=== PATIENT | male | born 1935 | race Caucasian/White ===

== ENCOUNTER → 2016-08-20 | Outpatient (CLI) | payer MEDICARE, BC | LOC: MW.LAB 08:03 | PROVIDERS: ATTEND Internal Medicine Interventional Cardiology | DX: I25.10 Atherosclerotic heart disease of native coronary artery without angina pectoris (principal) | CPT/HCPCS: 36415; 80061 ==

== ENCOUNTER → 2016-09-08 | Outpatient (CLI) | payer MEDICARE, BC | END | disposition home or self-care (01) | LOC: MW.CHIM 08:06 | PROVIDERS: ATTEND Internal Medicine | DX: E11.9 Type 2 diabetes mellitus without complications (principal); E78.5 Hyperlipidemia, unspecified | CPT/HCPCS: 36415; 80053; 80061; 83036; 85025 ==

== ENCOUNTER → 2016-09-09 | Outpatient (CLI) | payer MEDICARE, BC | LOC: MW.CHIM 08:00 | PROVIDERS: ATTEND Internal Medicine | DX: E11.9 Type 2 diabetes mellitus without complications (principal); I25.10 Atherosclerotic heart disease of native coronary artery without angina pectoris; I77.9 Disorder of arteries and arterioles, unspecified; I10 Essential (primary) hypertension | CPT/HCPCS: 99214 ==

== ENCOUNTER → 2016-11-11 | Outpatient (CLI) | payer MEDICARE, BC ==
--- NOTE | 2016-11-11 16:14 | CR ---
EXAMINATION: Right foot HISTORY: Pain COMPARISON: None TECHNIQUE: 2 views FINDINGS/IMPRESSION: There is no acute osseous abnormality, dislocation, or fracture identified. Bon e mineralization appears normal. 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 Mild vascular calcifications are noted.
== END ==
LOC: MW.CHIM 11:47
PROVIDERS: ATTEND Internal Medicine
DX: M79.671 Pain in right foot (principal); M10.9 Gout, unspecified; M19.071 Primary osteoarthritis, right ankle and foot; M25.871 Other specified joint disorders, right ankle and foot
CPT/HCPCS: 36415; 73620-26-RT; 73620-RT; 84550; 85025; 85652; 86140; G0463

== ENCOUNTER 2017-10-13 11:43 | Observation (INO) | payer MEDICARE, BC ==
[2017-10-13] MEDS ORDERED: Sodium Chloride 0.9% 2.5 ML Syringe FLUSH PRN ×2 (12:01→16:27)
[2017-10-13] MEDS ORDERED: Diltiazem 25 MG/5 ML SDV IVPUSH ONE (12:01)
[2017-10-13] MEDS ORDERED: Sodium Chloride 0.9% 10 ML Syringe FLUSH PRN ×2 (12:01→16:27)
[2017-10-13] MEDS ORDERED: Aspirin 81 MG Tab.Chew PO ONE (12:01)
--- NOTE | 2017-10-13 12:07 | EDM.PDOC ---
ED HPI GENERAL MEDICAL PROBLEM - General Chief Complaint: Respiratory Problem Stated Complaint: CHEST PAIN Time Seen by Provider: 10/13/17 11:49 - History of Present Illness INITIAL COMMENTS - FREE TEXT/NARRATIVE: HISTORY AND PHYSICAL: History of present illness: The patient is 82-year-old male who follows in our internal medicine clinic and also follows with Dr. Babak thompson distribution systems serviceperson at [facility] in [place] and presents with an episode today of shortness of breath diaphoresis nausea and chest pain that lasted for about 15-20 minutes this morning. The patient says he has had shortness of breath with activity and some diaphoresis the last one month and saw his distribution systems serviceperson on Thursday last week, 6 days ago, and mention this but no further testing was prescribed. The patient states compliance with his medications and says he has never had a heart attack but says that he has had irregular beats before but not rhythm problems that he knows the name of. The patient says that when he does activities or even walk short distances he feels short of breath and gets sweaty which she told the distribution systems serviceperson. Something similar happened this morning where he was just standing in his house drinking cup of coffee watching television when he started to feel short of breath diaphoretic and had chest pressure underneath the left breast. He did not take any nitroglycerin at home and he did not have any abdominal pain or vomiting but was nauseated. This episode only lasted 15-20 minutes and has now stopped. Currently he has no chest pain no shortness of breath but does feel sweaty even though he is not visibly diaphoretic. He has no abdominal pain or nausea and no leg pain or swelling. The patient says he only sleeps on one pillow at night and over the last one month he does not wake in the middle the night short of breath. Patient does not frequent our ER and there is not much information on the computer about him and his last EKG performed here in the emergency department was April 2016. Review of systems: As per history of present illness and below otherwise all systems reviewed and negative. Past medical history: As per history of present illness and as reviewed below otherwise noncontributory. Surgical history: As per history of present illness and as reviewed below otherwise noncontributory. Social history: No reported history of drug or alcohol abuse. Family history: As per history of present illness and as reviewed below otherwise noncontributory. Physical exam: General: Well-developed well-nourished overweight man who is nontoxic and speaking clearly in the ED. Vital signs of the note by me. His chloride was lightly diaphoretic but the remainder of his body was not. Skin: Normal turgor no evidence of any gross pallor lesions or abnormalities. HEENT: Atraumatic, normocephalic, pupils reactive, negative for conjunctival pallor or scleral icterus, mucous membranes moist, throat clear, neck supple, nontender, trachea midline. Lungs: Clear to auscultation, breath sounds equal bilaterally, chest nontender. No work of breathing stridor or sensory muscle use Heart: S1S2, a she has a new irregular rhythm which is slightly tachycardic in the low 100s negative for clicks, rubs, or JVD. Abdomen: Soft, nondistended, nontender. Negative for masses or hepatosplenomegaly. Negative for costovertebral tenderness. Pelvis: Stable nontender. Genitourinary: Deferred. Rectal: Deferred. Extremities: Atraumatic, negative for cords or calf pain. Neurovascular unremarkable. No pedal edema or leg asymmetry Neuro: Awake, alert, oriented. Cranial nerves II through XII unremarkable. Cerebellum unremarkable. Motor and sensory unremarkable throughout. Exam nonfocal. Diagnostics: EKG x 2 chest x-ray CBC CMP INR BNP troponin [employer]: IV O2 monitor aspirin Cardizem Today's EKG was compared to the one performed here in April 2016, as this is the only EKG we have, and his prior was sinus rhythm and today he is in A. fib with a left bundle branch block. We will contact his physicians office to try to obtain an EKG if one was performed recently for comparison. 1235: Cardizem was given and the patient's heart rate is now in the 70s to 80s and he says he no longer feels sweaty. He still has no chest pain and no shortness of breath nor has he had any while in the ED. We will perform a repeat EKG and analyze the rhythm and we are still waiting for the EKG from his distribution systems serviceperson's office 1323: We were unable to get a hold of Dr. Hilliard as he is at a clinic where his cell phone service is not working and it is a satellite clinic and cannot be reached. I spoke with Dr. Moreno who was on-call for cardiology at [facility] and he was able to access some information in the computer including a stress test he had here in [place] in 2014 which showed an EF of 61% and not A. fib and echo cardiogram present within normal limits and a history that indicated that the patient had carotid disease coronary artery disease dyslipidemia and hypertension. At no point in the patient record that he was able to review was or any mention of atrial fibrillation nor does the patient or family know what that is. Chordee to the distribution systems serviceperson the last EKG that they have on record as of June 2015 hour EKG is more recent than that. He recommended starting metoprolol 12.5 mg by mouth twice a day and Eliquis but I will discuss this case with our distribution systems serviceperson Dr. Reyna if he is available as well as with the hospitalist for admission. The patient's current heart rate is in the 70s and according to Dr Moreno at [facility] he does not recommend giving any more Cardizem and only a beta dao. I performed a repeat EKG, EKG #3 which indicates an irregularly irregular rhythm consistent with A. fib We did discuss with the patient and the family whether or not they were preferred transfer to [facility] for observation admission and medication therapy or preferred to be admitted here. They tell me that with a would prefer to be admitted here and this has been relayed to the distribution systems serviceperson at [facility] as well 1345: Case was discussed with Dr. Reyna our distribution systems serviceperson who will see the patient in consultation. Please see his note for further recommendations. He is aware of the heart rate the medications that have been given and the intermittent drops in blood pressure without symptomatology. 1355: case was discussed with our hospitalist Dr Bain accepts the patient for observation admission to telemetry. Critical care time excluding procedures: 31min Impression: Progressive dyspnea, episode of chest pain and palpitations, new onset A. fib Definitive disposition and diagnosis as appropriate pending reevaluation and review of above. - Related Data Allergies Allergy/AdvReac Type Severity Reaction Status Date / Time No Known Allergies Allergy Verified 10/13/17 11:58 Home Meds: Home Meds Enalapril Maleate 10 mg PO DAILY 11/16/13 [History] Insuln Asp Prot/Insulin Aspart [NovoLOG Mix 70-30] 24 unit SQ QAM 11/16/13 [ History] metFORMIN HCl [Metformin HCl] 1,000 mg PO BID 11/16/13 [History] Clopidogrel Bisulfate [Plavix] 75 mg PO DAILY 03/12/16 [History] Insuln Asp Prot/Insulin Aspart [NovoLOG Mix 70-30] 15 unit SQ QPM 03/12/16 [ History] Isosorbide Mononitrate [Isosorbide Mononitrate ER] 15 mg PO DAILY 03/16/16 [ History] Carvedilol 6.25 mg PO BID 03/25/16 [History] Glimepiride 1 mg PO WITHBREAKFAST 10/13/17 [History] Hydrochlorothiazide 12.5 mg PO DAILY 10/13/17 [History] Past Medical History HEENT History: Reports: None Cardiovascular History: Reports: CAD, High Cholesterol, Hypertension, Other ( See Below) Other Cardiovascular History: ? 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" Respiratory History: Reports: None Gastrointestinal History: Reports: Hiatal Hernia Genitourinary History: Reports: None Musculoskeletal History: Reports: Back Pain, Chronic, Fracture, Gout Other Musculoskeletal History: hx of hand and foot fx Neurological History: Reports: Concussion, Head Trauma, Vertigo Other Neuro History: possible concussion yrs ago Psychiatric History: Reports: None Endocrine/Metabolic History: Reports: Diabetes, Type II, Obesity/BMI 30+ Hematologic History: Reports: None Immunologic History: Reports: None Oncologic (Cancer) History: Reports: None Dermatologic History: Reports: None - Infectious Disease History Infectious Disease History: Reports: None - Past Surgical History Head Surgeries/Procedures: Reports: None GI Surgical History: Reports: Cholecystectomy, Guy Fundoplication Male Surgical History: Reports: None Musculoskeletal Surgical History: Reports: None, Carpal Tunnel Social & Family History - Family History Family Medical History: Noncontributory - Tobacco Use Smoking Status *Q: Never Smoker - Alcohol Use Days Per Week of Alcohol Use: 1 Number of Drinks Per Day: 1 Total Drinks Per Week: 1 - Recreational Drug Use Recreational Drug Use: No Drug Use in Last 12 Months: No ED ROS GENERAL - Review of Systems Review Of Systems: ROS reveals no pertinent complaints other than HPI. ED EXAM, GENERAL - Physical Exam Exam: See Below (see dictation) Course - Vital Signs Last Recorded V/S: Last Vital Signs Temp 36.3 C 10/13/17 11:59 Pulse 115 H 10/13/17 11:59 Resp 18 10/13/17 11:59 BP 84/52 L 10/13/17 13:40 Pulse Ox 97 10/13/17 11:59 - Orders/Labs/Meds Orders: Active Orders 24 hr Category Date Time Status Patient Status [ADT] Stat ADT 10/13/17 13:56 Ordered Cardiac Monitoring [RC] . DIRECTED Care 10/13/17 12:00 Active EKG 12 Lead [EKG Documentation Completion] [RC] STAT Care 10/13/17 11:55 Active EKG Documentation Completion [RC] STAT Care 10/13/17 12:42 Active EKG Documentation Completion [RC] STAT Care 10/13/17 13:34 Active Notify Provider Consults [RC] ASDIRECTED Care 10/13/17 13:47 Active Oxygen Therapy, ED [RC] ASDIRECTED Care 10/13/17 12:00 Active Pulse Oximetry [RC] ASDIRECTED Care 10/13/17 12:00 Active Consult to Physician [CONS] Stat Cons 10/13/17 13:47 Active Sodium Chloride 0.9% [Normal Saline] 1,000 ml Med 10/13/17 12:42 Active IV ONETIME Sodium Chloride 0.9% [Saline Flush] Med 10/13/17 12:01 Active 10 ml FLUSH ASDIRECTED PRN Sodium Chloride 0.9% [Saline Flush] Med 10/13/17 12:01 Active 2.5 ml FLUSH ASDIRECTED PRN Saline Lock Insert [OM.PC] Stat Oth 10/13/17 12:00 Ordered Medication Orders Sodium Chloride (Normal Saline) 1,000 mls @ 30 mls/hr IV ONETIME ONE Stop: 10/14/17 22:01 Last Infusion: 10/13/17 13:44 Dose: 999 mls/hr Admin: 10/13/17 12:42 Dose: 30 mls/hr Sodium Chloride (Saline Flush) 10 ml FLUSH ASDIRECTED PRN PRN Reason: Keep Vein Open Sodium Chloride (Saline Flush) 2.5 ml FLUSH ASDIRECTED PRN PRN Reason: Keep Vein Open Labs: Laboratory Tests 10/13/17 10/13/17 10/13/17 Range/Units 12:00 12:00 12:00 WBC 8.26 (4.0-11.0) K/uL RBC 4.94 (4.50-5.90) M/uL Hgb 15.1 (13.0-17.0) g/dL Hct 43.4 (38.0-50.0) % MCV 87.9 (80.0-98.0) fL MCH 30.6 (27.0-32.0) pg MCHC 34.8 (31.0-37.0) g/dL RDW Std Deviation 45.2 (28.0-62.0) fl RDW Coeff of Aneudy 14 (11.0-15.0) % Plt Count 236 (150-400) K/uL MPV 11.10 (7.40-12.00) fL Neut % (Auto) 63.4 (48.0-80.0) % Lymph % (Auto) 22.8 (16.0-40.0) % Hooker % (Auto) 11.4 (0.0-15.0) % Eos % (Auto) 1.6 (0.0-7.0) % Baso % (Auto) 0.8 (0.0-1.5) % Neut # (Auto) 5.2 (1.4-5.7) K/uL Lymph # (Auto) 1.9 (0.6-2.4) K/uL Hooker # (Auto) 0.9 H (0.0-0.8) K/uL Eos # (Auto) 0.1 (0.0-0.7) K/uL Baso # (Auto) 0.1 (0.0-0.1) K/uL Nucleated RBC % 0.0 /100WBC Nucleated RBCs # 0 K/uL INR 1.02 Sodium 137 (136-148) mmol/L Potassium 4.7 (3.5-5.1) mmol/L Chloride 104 (98-107) mmol/L Carbon Dioxide 26.1 (21.0-32.0) mmol/L BUN 21 H (7.0-18.0) mg/dL Creatinine 1.5 H (0.8-1.3) mg/dL Est Cr Clr Drug Dosing 39.20 mL/min Estimated GFR (MDRD) 44.8 ml/min Glucose 151 H (74-106) mg/dL Calcium 9.6 (8.5-10.1) mg/dL Total Bilirubin 0.5 (0.2-1.0) mg/dL AST 15 (15-37) IU/L ALT 16 (14-63) IU/L Alkaline Phosphatase 71 (46-116) U/L Troponin I < 0.050 (0.000-0.056) ng/mL B-Natriuretic Peptide (<100) PG/ML Total Protein 7.8 (6.4-8.2) g/dL Albumin 3.6 (3.4-5.0) g/dL Globulin 4.2 H (2.0-3.5) g/dL Albumin/Globulin Ratio 0.9 L (1.3-2.8) 10/13/17 Range/Units 12:00 WBC (4.0-11.0) K/uL RBC (4.50-5.90) M/uL Hgb (13.0-17.0) g/dL Hct (38.0-50.0) % MCV (80.0-98.0) fL MCH (27.0-32.0) pg MCHC (31.0-37.0) g/dL RDW Std Deviation (28.0-62.0) fl RDW Coeff of Aneudy (11.0-15.0) % Plt Count (150-400) K/uL MPV (7.40-12.00) fL Neut % (Auto) (48.0-80.0) % Lymph % (Auto) (16.0-40.0) % Hooker % (Auto) (0.0-15.0) % Eos % (Auto) (0.0-7.0) % Baso % (Auto) (0.0-1.5) % Neut # (Auto) (1.4-5.7) K/uL Lymph # (Auto) (0.6-2.4) K/uL Hooker # (Auto) (0.0-0.8) K/uL Eos # (Auto) (0.0-0.7) K/uL Baso # (Auto) (0.0-0.1) K/uL Nucleated RBC % /100WBC Nucleated RBCs # K/uL INR Sodium (136-148) mmol/L Potassium (3.5-5.1) mmol/L Chloride (98-107) mmol/L Carbon Dioxide (21.0-32.0) mmol/L BUN (7.0-18.0) mg/dL Creatinine (0.8-1.3) mg/dL Est Cr Clr Drug Dosing mL/min Estimated GFR (MDRD) ml/min Glucose (74-106) mg/dL Calcium (8.5-10.1) mg/dL Total Bilirubin (0.2-1.0) mg/dL AST (15-37) IU/L ALT (14-63) IU/L Alkaline Phosphatase (46-116) U/L Troponin I (0.000-0.056) ng/mL B-Natriuretic Peptide 425 H (<100) PG/ML Total Protein (6.4-8.2) g/dL Albumin (3.4-5.0) g/dL Globulin (2.0-3.5) g/dL Albumin/Globulin Ratio (1.3-2.8) Meds: Medications Generic Name Dose Route Start Last Admin Trade Name Freq PRN Reason Stop Dose Admin Sodium Chloride 1,000 mls @ 30 mls/hr 10/13/17 12:42 10/13/17 13:44 Normal Saline IV 10/14/17 22:01 999 mls/hr ONETIME ONE Infusion Sodium Chloride 10 ml 10/13/17 12:01 Saline Flush FLUSH ASDIRECTED PRN Keep Vein Open Sodium Chloride 2.5 ml 10/13/17 12:01 Saline Flush FLUSH ASDIRECTED PRN Keep Vein Open Discontinued Medications Generic Name Dose Route Start Last Admin Trade Name Freq PRN Reason Stop Dose Admin Aspirin 324 mg 10/13/17 12:01 10/13/17 12:27 Aspirin PO 10/13/17 12:02 324 mg ONETIME ONE Administration Diltiazem HCl 10 mg 10/13/17 12:01 10/13/17 12:29 Diltiazem IVPUSH 10/13/17 12:02 10 mg ONETIME ONE Administration Departure - Departure Time of Disposition: 13:58 Disposition: Refer to Observation Condition: Good Clinical Impression: Atrial fibrillation Qualifiers: Atrial fibrillation type: unspecified Qualified Code(s): I48.91 - Unspecified atrial fibrillation Chest pain Qualifiers: Chest pain type: unspecified Qualified Code(s): R07.9 - Chest pain, unspecified - Discharge Information Referrals: PCP,Unknown [Primary Care Provider] - Forms: ED Department Discharge - My Orders Last 24 Hours: My Active Orders 10/13/17 11:55 EKG 12 Lead [EKG Documentation Completion] [RC] STAT 10/13/17 12:00 Cardiac Monitoring [RC] . DIRECTED Oxygen Therapy, ED [RC] ASDIRECTED Pulse Oximetry [RC] ASDIRECTED Saline Lock Insert [OM.PC] Stat 10/13/17 12:01 Sodium Chloride 0.9% [Saline Flush] 10 ml FLUSH ASDIRECTED PRN Sodium Chloride 0.9% [Saline Flush] 2.5 ml FLUSH ASDIRECTED PRN 10/13/17 12:42 EKG Documentation Completion [RC] STAT Sodium Chloride 0.9% [Normal Saline] 1,000 ml IV ONETIME 10/13/17 13:34 EKG Documentation Completion [RC] STAT 10/13/17 13:47 Notify Provider Consults [RC] ASDIRECTED Consult to Physician [CONS] Stat 10/13/17 13:56 Patient Status [ADT] Stat - Assessment/Plan Last 24 Hours: My Active Orders 10/13/17 11:55 EKG 12 Lead [EKG Documentation Completion] [RC] STAT 10/13/17 12:00 Cardiac Monitoring [RC] . DIRECTED Oxygen Therapy, ED [RC] ASDIRECTED Pulse Oximetry [RC] ASDIRECTED Saline Lock Insert [OM.PC] Stat 10/13/17 12:01 Sodium Chloride 0.9% [Saline Flush] 10 ml FLUSH ASDIRECTED PRN Sodium Chloride 0.9% [Saline Flush] 2.5 ml FLUSH ASDIRECTED PRN 10/13/17 12:42 EKG Documentation Completion [RC] STAT Sodium Chloride 0.9% [Normal Saline] 1,000 ml IV ONETIME 10/13/17 13:34 EKG Documentation Completion [RC] STAT 10/13/17 13:47 Notify Provider Consults [RC] ASDIRECTED Consult to Physician [CONS] Stat 10/13/17 13:56 Patient Status [ADT] Stat
--- NOTE | 2017-10-13 12:40 | CR ---
EXAMINATION: Portable chest radiograph. HISTORY: Breath. FINDINGS: The trachea is midline. The cardiomediastinal silhouette is within normal limits. No pulmonary infilt rates, effusions or pneumothorax. Minimal chronic interstitial prominence. Stable elevation of the le ft hemidiaphragm. Osseous structures appear unremarkable. IMPRESSION: No acute cardiopulmonary process.
[2017-10-13] MEDS ORDERED: Sodium Chloride 0.9% 1,000 ML IV ONE (12:42)
[2017-10-13 12:51] LABS: CHLORIDE,CL 104 mmol/L (98-107); SODIUM,NA 137 mmol/L (136-148)
--- NOTE | 2017-10-13 15:43 | PCM.HP ---
H&P History of Present Illness - General Date of Service: 10/13/17 Admit Problem/Dx: Admission Diagnosis/Problem Admission Diagnosis/Problem Chest pain Source of Information: Patient - History of Present Illness Initial Comments - Free Text/Narative: Patient 82 years old man presented to Er due to chest pain that woke him up from sleep , described as chest tightness for about 10 -15 minutes , localized left side of chest , mild in intensity , no irradiation. He has hx of Dm and Cad. Patient also c/o being diaphoretic sometime , and sob , has nausea and feels unsteady on his feet "like he is drunk" , no spinning of room or spinning inside the room , and it is triggered by him going from lying position to standing position.His previous EKG was sinus rhythm, the previous EKG was done here 2 y ago. His unsteadiness is better with motion sickness medication he received from his doctor. ( dromamine) Onset of Symptoms: Reports: Today - Related Data Allergies/Adverse Reactions: Allergies Allergy/AdvReac Type Severity Reaction Status Date / Time No Known Allergies Allergy Verified 10/13/17 11:58 Home Medications: Home Meds Enalapril Maleate 10 mg PO DAILY 11/16/13 [History] Insuln Asp Prot/Insulin Aspart [NovoLOG Mix 70-30] 24 unit SQ QAM 11/16/13 [ History] metFORMIN HCl [Metformin HCl] 1,000 mg PO BID 11/16/13 [History] Clopidogrel Bisulfate [Plavix] 75 mg PO DAILY 03/12/16 [History] Insuln Asp Prot/Insulin Aspart [NovoLOG Mix 70-30] 15 unit SQ QPM 03/12/16 [ History] Isosorbide Mononitrate [Isosorbide Mononitrate ER] 15 mg PO DAILY 03/16/16 [ History] Carvedilol 6.25 mg PO BID 03/25/16 [History] Glimepiride 1 mg PO WITHBREAKFAST 10/13/17 [History] Hydrochlorothiazide 12.5 mg PO DAILY 10/13/17 [History] Past Medical History HEENT History: Reports: None Cardiovascular History: Reports: CAD, High Cholesterol, Hypertension, Other ( See Below) Other Cardiovascular History: 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" Respiratory History: Reports: None Gastrointestinal History: Reports: Hiatal Hernia Genitourinary History: Reports: None Musculoskeletal History: Reports: Back Pain, Chronic, Fracture, Gout Other Musculoskeletal History: hx of hand and foot fx Neurological History: Reports: Concussion, Head Trauma, Vertigo Other Neuro History: possible concussion yrs ago Psychiatric History: Reports: None Endocrine/Metabolic History: Reports: Diabetes, Type II, Obesity/BMI 30+ Hematologic History: Reports: Anticoagulation Therapy Immunologic History: Reports: None Oncologic (Cancer) History: Reports: None Dermatologic History: Reports: None - Infectious Disease History Infectious Disease History: Reports: Measles - Past Surgical History Head Surgeries/Procedures: Reports: None GI Surgical History: Reports: Cholecystectomy, Guy Fundoplication Male Surgical History: Reports: None Neurological Surgical History: Reports: None Musculoskeletal Surgical History: Reports: Carpal Tunnel Social & Family History - Family History Family Medical History: Noncontributory - Tobacco Use Smoking Status *Q: Never Smoker Second Hand Smoke Exposure: No - Caffeine Use Caffeine Use: Reports: Coffee - Alcohol Use Days Per Week of Alcohol Use: 1 Number of Drinks Per Day: 1 Total Drinks Per Week: 1 - Recreational Drug Use Recreational Drug Use: No Drug Use in Last 12 Months: No H&P Review of Systems - Review of Systems: Review Of Systems: See Below General: Reports: No Symptoms HEENT: Reports: No Symptoms Pulmonary: Reports: No Symptoms Cardiovascular: Reports: Chest Pain. Denies: Orthopnea, PND, Edema, Lightheadedness Gastrointestinal: Reports: No Symptoms Genitourinary: Reports: No Symptoms Musculoskeletal: Reports: No Symptoms Skin: Reports: No Symptoms Psychiatric: Reports: No Symptoms Neurological: Reports: Dizziness, Gait Disturbance Hematologic/Lymphatic: Reports: No Symptoms Immunologic: Reports: No Symptoms Exam - Exam Exam: See Below - Vital Signs Vital Signs: Last Vital Signs Temp 96.6 F 10/13/17 15:09 Pulse 73 10/13/17 15:09 Resp 20 10/13/17 15:09 BP 126/74 10/13/17 15:09 Pulse Ox 95 10/13/17 15:09 Weight: 241 lb 12.8 oz - Exam General: Alert, Oriented HEENT: Conjunctiva Clear, EACs Clear Neck: Supple, Trachea Midline Lungs: Clear to Auscultation, Normal Respiratory Effort Cardiovascular: Normal S1, Normal S2, Irregular Rhythm GI/Abdominal Exam: Normal Bowel Sounds, Soft, Non-Tender, No Organomegaly, No Distention, No Abnormal Bruit, No Mass Back Exam: Normal Inspection Extremities: Normal Inspection Skin: Warm, Dry Neurological: Cranial Nerves Intact Neuro Extensive - Mental Status: Alert, Oriented x3 Neuro Extensive - Motor, Sensory, Reflexes: CN II-XII Intact Psychiatric: Alert, Normal Affect, Normal Mood - Patient Data Lab Results Last 24 hrs: Laboratory Results - last 24 hr 10/13/17 10/13/17 10/13/17 Range/Units 12:00 12:00 12:00 WBC 8.26 (4.0-11.0) K/uL RBC 4.94 (4.50-5.90) M/uL Hgb 15.1 (13.0-17.0) g/dL Hct 43.4 (38.0-50.0) % MCV 87.9 (80.0-98.0) fL MCH 30.6 (27.0-32.0) pg MCHC 34.8 (31.0-37.0) g/dL RDW Std Deviation 45.2 (28.0-62.0) fl RDW Coeff of Aneudy 14 (11.0-15.0) % Plt Count 236 (150-400) K/uL MPV 11.10 (7.40-12.00) fL Neut % (Auto) 63.4 (48.0-80.0) % Lymph % (Auto) 22.8 (16.0-40.0) % [place] % (Auto) 11.4 (0.0-15.0) % Eos % (Auto) 1.6 (0.0-7.0) % Baso % (Auto) 0.8 (0.0-1.5) % Neut # (Auto) 5.2 (1.4-5.7) K/uL Lymph # (Auto) 1.9 (0.6-2.4) K/uL [place] # (Auto) 0.9 H (0.0-0.8) K/uL Eos # (Auto) 0.1 (0.0-0.7) K/uL Baso # (Auto) 0.1 (0.0-0.1) K/uL Nucleated RBC % 0.0 /100WBC Nucleated RBCs # 0 K/uL INR 1.02 Sodium 137 (136-148) mmol/L Potassium 4.7 (3.5-5.1) mmol/L Chloride 104 (98-107) mmol/L Carbon Dioxide 26.1 (21.0-32.0) mmol/L BUN 21 H (7.0-18.0) mg/dL Creatinine 1.5 H (0.8-1.3) mg/dL Est Cr Clr Drug Dosing 39.20 mL/min Estimated GFR (MDRD) 44.8 ml/min Glucose 151 H (74-106) mg/dL Calcium 9.6 (8.5-10.1) mg/dL Total Bilirubin 0.5 (0.2-1.0) mg/dL AST 15 (15-37) IU/L ALT 16 (14-63) IU/L Alkaline Phosphatase 71 (46-116) U/L Troponin I < 0.050 (0.000-0.056) ng/mL B-Natriuretic Peptide (<100) PG/ML Total Protein 7.8 (6.4-8.2) g/dL Albumin 3.6 (3.4-5.0) g/dL Globulin 4.2 H (2.0-3.5) g/dL Albumin/Globulin Ratio 0.9 L (1.3-2.8) 10/13/17 Range/Units 12:00 WBC (4.0-11.0) K/uL RBC (4.50-5.90) M/uL Hgb (13.0-17.0) g/dL Hct (38.0-50.0) % MCV (80.0-98.0) fL MCH (27.0-32.0) pg MCHC (31.0-37.0) g/dL RDW Std Deviation (28.0-62.0) fl RDW Coeff of Aneudy (11.0-15.0) % Plt Count (150-400) K/uL MPV (7.40-12.00) fL Neut % (Auto) (48.0-80.0) % Lymph % (Auto) (16.0-40.0) % [place] % (Auto) (0.0-15.0) % Eos % (Auto) (0.0-7.0) % Baso % (Auto) (0.0-1.5) % Neut # (Auto) (1.4-5.7) K/uL Lymph # (Auto) (0.6-2.4) K/uL [place] # (Auto) (0.0-0.8) K/uL Eos # (Auto) (0.0-0.7) K/uL Baso # (Auto) (0.0-0.1) K/uL Nucleated RBC % /100WBC Nucleated RBCs # K/uL INR Sodium (136-148) mmol/L Potassium (3.5-5.1) mmol/L Chloride (98-107) mmol/L Carbon Dioxide (21.0-32.0) mmol/L BUN (7.0-18.0) mg/dL Creatinine (0.8-1.3) mg/dL Est Cr Clr Drug Dosing mL/min Estimated GFR (MDRD) ml/min Glucose (74-106) mg/dL Calcium (8.5-10.1) mg/dL Total Bilirubin (0.2-1.0) mg/dL AST (15-37) IU/L ALT (14-63) IU/L Alkaline Phosphatase (46-116) U/L Troponin I (0.000-0.056) ng/mL B-Natriuretic Peptide 425 H (<100) PG/ML Total Protein (6.4-8.2) g/dL Albumin (3.4-5.0) g/dL Globulin (2.0-3.5) g/dL Albumin/Globulin Ratio (1.3-2.8) Result Diagrams: 10/14/17 04:55 10/14/17 04:55 EKG INTERPRETATION EKG Date: 10/13/17 Rhythm: A-Fib Rate (Beats/Min): 108 QRS: LBBB - Problem List (1) Vertigo SNOMED Code(s): 418272271 ICD Code: R42 - DIZZINESS AND GIDDINESS Status: Acute Current Visit: Yes (2) New onset atrial fibrillation SNOMED Code(s): 25950502 ICD Code: I48.91 - UNSPECIFIED ATRIAL FIBRILLATION Status: Acute Current Visit: Yes (3) Chest pain, rule out acute myocardial infarction SNOMED Code(s): 74074739 ICD Code: R07.9 - CHEST PAIN, UNSPECIFIED Status: Acute Current Visit: Yes (4) Atrial fibrillation with RVR SNOMED Code(s): 677092957090584 ICD Code: I48.91 - UNSPECIFIED ATRIAL FIBRILLATION Status: Acute Current Visit: Yes Problem List Initiated/Reviewed/Updated: Yes Orders Last 24hrs: Active Orders 24 hr Category Date Time Status Patient Status [ADT] Stat ADT 10/13/17 13:56 Active Cardiac Monitoring [RC] . DIRECTED Care 10/13/17 12:00 Active EKG 12 Lead [EKG Documentation Completion] [RC] STAT Care 10/13/17 11:55 Active EKG Documentation Completion [RC] STAT Care 10/13/17 12:42 Active EKG Documentation Completion [RC] STAT Care 10/13/17 13:34 Active Notify Provider Consults [RC] ASDIRECTED Care 10/13/17 13:47 Active Oxygen Therapy, ED [RC] ASDIRECTED Care 10/13/17 12:00 Active Pulse Oximetry [RC] ASDIRECTED Care 10/13/17 12:00 Active Consult to Physician [CONS] Stat Cons 10/13/17 13:47 Active Sodium Chloride 0.9% [Normal Saline] 1,000 ml Med 10/13/17 12:42 Active IV ONETIME Sodium Chloride 0.9% [Saline Flush] Med 10/13/17 12:01 Active 10 ml FLUSH ASDIRECTED PRN Sodium Chloride 0.9% [Saline Flush] Med 10/13/17 12:01 Active 2.5 ml FLUSH ASDIRECTED PRN Saline Lock Insert [OM.PC] Stat Oth 10/13/17 12:00 Ordered Medication Orders Sodium Chloride (Normal Saline) 1,000 mls @ 30 mls/hr IV ONETIME ONE Stop: 10/14/17 22:01 Last Infusion: 10/13/17 14:03 Dose: 30 mls/hr Infusion: 10/13/17 13:44 Dose: 999 mls/hr Admin: 10/13/17 12:42 Dose: 30 mls/hr Sodium Chloride (Saline Flush) 10 ml FLUSH ASDIRECTED PRN PRN Reason: Keep Vein Open Sodium Chloride (Saline Flush) 2.5 ml FLUSH ASDIRECTED PRN PRN Reason: Keep Vein Open Assessment and plan 1) Chest pain r/o acs- will admit patient to telemetry and will f/up cardiac enzymes , aspirin po daily , continue plavix 75 mg po daily , lipid profile , hemoglobin a1 c , f/up cardiology consult , ischemic work up as outpatient 1')vertigo - meclizine 25 mg p[o TID prn for dizziness , PT vestibular 2)A fib new onset - rate is controlled at the moment I seen patient , will continue coreg 6.5 mg po BID , will start patient on lovenox 1 mg /kg , q 12h , Echo , cardiology consult. 3) afib with RVR - rate decreaded after patient received cardiazem 1 dose in Er 4) DM - continue metformine , insuline as per reconciliation CAD - continue isosorbid 30 mg po daily ischemic work up as outpatient dvt prof : heparin sq, bridged with Coumadin
[2017-10-13] MEDS ORDERED: Docusate Sodium 100 MG Cap PO PRN (16:27)
[2017-10-13] MEDS ORDERED: Albuterol/Ipratropium 3.0-0.5 MG/3 ML Neb Soln NEB PRN (16:27)
[2017-10-13] MEDS ORDERED: Acetaminophen 325 MG Tab PO PRN (16:27)
[2017-10-13] MEDS ORDERED: Morphine 4 MG/ML Syringe IVPUSH PRN (16:27)
[2017-10-13] MEDS ORDERED: Enoxaparin 30 MG/0.3 ML Syringe SUBCUT SCH (16:30)
[2017-10-13] MEDS: Insuln Aspart Prot/Insulin Aspart 100 Units/ML 3 ML FlexPen SUBCUT SCH (17:45)
[2017-10-13] MEDS ORDERED: Meclizine 25 MG Tab PO PRN (18:30)
[2017-10-13] MEDS ORDERED: Enoxaparin 40 MG/0.4 ML Syringe SUBCUT ONE (18:44)
[2017-10-13] MEDS ORDERED: Warfarin 5 MG Tab PO SCH (18:45)
[2017-10-13] MEDS ORDERED: Enoxaparin 60 MG/0.6 ML Syringe SUBCUT SCH (19:00)
[2017-10-13] MEDS ORDERED: Warfarin 5 MG Tab PO ONE (19:15)
[2017-10-13] MEDS: Carvedilol 6.25 MG Tab PO SCH (21:00)
[2017-10-13] MEDS: metFORMIN 500 MG Tab PO SCH (21:00)
--- NOTE | 2017-10-13 22:45 | CONS ---
DATE OF CONSULTATION: 10/13/2017 DATE OF : 1935 PRIMARY CARE PHYSICIAN: None PCP REASON FOR CONSULTATION: Chest tightness. HISTORY: This is an 82-year-old male who has a history of CAD in the past, hypertension, carotid artery disease, dyslipidemia. He presented to the emergency room due to the symptom of sweating and left chest tightness that woke him up this morning. He stated that he was sleeping and then he woke up with the sweating as well as tightness of his left chest wall. It was nonradiating. It was mild chest pain around 2/10 pain scale and it lasted for 10 minutes and has come back. He also feels some short of breath and he feels like someone pushing on his left chest wall. He just saw a digital content marketing manager like last week and everything was okay. He also was feeling okay as well. However, the chest tightness and sweating keeps coming back. He was told that he needs to get checked out in the emergency room, that was why he was coming to the hospital. In the emergency room, he was found to have an atrial fibrillation RVR, and diltiazem was given and then he was admitted to the hospital for ACS rule out. He also denied a history of atrial fibrillation, irregular heart beat. He has never been on Coumadin or warfarin in the past before. PAST MEDICAL HISTORY: 1. CAD. He had a stress test done 2009 that showed positive stresses for EKG criteria. There was no reversible defect on nuclear imaging and then subsequent coronary angiogram in 2009 showed 50% LAD at the bifurcation of first diagonal branch as well as a 90% lesion of the PLV which is very small in the region of 1 mm. No intervention was performed. 2. Hypertension. 3. Carotid artery disease. 4. Dyslipidemia. CURRENT MEDICATIONS: Coreg 6.25 twice a day, aspirin 81 mg once a day, Plavix 75 mg once a day, enalapril 10 mg once a day, hydrochlorothiazide 12.5 mg once a day, Imdur 30 mg once a day, metformin 1000 mg twice a day. ALLERGIES: No known drug allergies. SOCIAL HISTORY: He denies smoking, drug use or alcoholic consumption. FAMILY HISTORY: His mother had a history of heart disease, diabetes, arthritis. His brother had a history of cancer, heart disease, heart attack, hypertension. His father has history of diabetes. REVIEW OF SYSTEMS: Except indicated in HPI, otherwise has been negative. PHYSICAL EXAMINATION: VITAL SIGNS: Initial heart rate is 115, current heart rate is 86, still regular, and initial blood pressure is 108/53 but is coming up to 126/74 by itself. He has the episodes of low blood pressure as well, down to 79/49. O2 saturation 95 on room air, respiration is 18 to 20, body temperature 36.3. SKIN: No pale. No jaundice. NECK: No JVD. HEART: Normal S1, S2. No murmur. Totally irregular. LUNGS: Clear. ABDOMEN: Soft, nontender. Bowel sounds are present. No hepatosplenomegaly. LEGS: No edema. LABORATORY INVESTIGATION: CBC showed WBC 8, hematocrit of 43, hemoglobin 15, platelet 236. INR is 1.02. Sodium 137, potassium 4.7, chloride 104, bicarb 26, BUN 21, creatinine 1.5, his baseline is around 1.1 to 1.4. Troponin, the first one less than 0.05, the second 0.055. BNP 425. Chest x-ray is clear. EKG showed atrial fibrillation with interventricular conduction delay. There are some ST abnormalities in lead III and aVF that seemed to be persistent. He also had an echocardiogram done last time 2013 showed ejection fraction of 50 to 55% and grade 1 diastolic dysfunction. ASSESSMENT AND PLAN: This is a 82-year-old male history of coronary artery disease, hypertension, dyslipidemia carotid artery disease, presented to the hospital with new onset of atrial fibrillation, symptomatic with chest pain. He should be admitted to the hospital and should be admitted for acute coronary syndrome rule out. The cardiac enzymes should be cycled every 6 to 8 hours. He is already on a beta dao, Coreg 6.25 twice a day. We will continue that as well as Lovenox subcutaneous and Coumadin was started. His heart rate seemed to be controlled When I talked to him, he can lie flat. He denies leg swelling and he would probably needs ischemic workup which is stress. He stated that he has a hard time walking for long distance because of his hip problem. He probably need chemical stress. I will also discuss with his primary care digital content marketing manager about him as well. ARIAN / [place] /[id number] [place]
[2017-10-14] MEDS: Enoxaparin 60 MG/0.6 ML Syringe SUBCUT SCH ×2 (06:15→18:56)
[2017-10-14] MEDS: Insuln Aspart Prot/Insulin Aspart 100 Units/ML 3 ML FlexPen SUBCUT SCH ×2 (08:21→18:59)
[2017-10-14] MEDS: Isosorbide Mononitrate 30 MG Tab.ER PO SCH (08:30)
[2017-10-14] MEDS: metFORMIN 500 MG Tab PO SCH ×2 (08:30→20:04)
[2017-10-14] MEDS: Carvedilol 6.25 MG Tab PO SCH (08:31)
[2017-10-14] MEDS: Clopidogrel 75 MG Tab PO SCH (08:31)
--- NOTE | 2017-10-14 13:17 | PCM.PN ---
- General Info Date of Service: 10/13/17 Admission Dx/Problem (Free Text): Admission Diagnosis/Problem Admission Diagnosis/Problem Chest pain Subjective Update: Patient had sweating during the day and his heart rate on monitor was going up to 140 , Bp systolic dropped briefly to 70 . - Review of Systems General: Reports: No Symptoms HEENT: Reports: No Symptoms Pulmonary: Reports: No Symptoms Cardiovascular: Reports: Lightheadedness Gastrointestinal: Reports: No Symptoms Genitourinary: Reports: No Symptoms Musculoskeletal: Reports: No Symptoms Psychiatric: Reports: No Symptoms - Patient Data Vitals - Most Recent: Last Vital Signs Temp 96.6 F 10/14/17 08:00 Pulse 82 10/14/17 08:31 Resp 18 10/14/17 08:00 BP 113/58 L 10/14/17 08:31 Pulse Ox 96 10/14/17 08:00 Weight - Most Recent: 241 lb 12.8 oz I&O - Last 24 Hours: Intake & Output 10/13/17 10/14/17 10/14/17 22:59 06:59 14:59 Intake Total 240 Balance 240 Lab Results Last 24 Hours: Laboratory Results - last 24 hr 10/13/17 10/13/17 10/13/17 Range/Units 16:45 18:40 18:40 WBC (4.0-11.0) K/uL RBC (4.50-5.90) M/uL Hgb (13.0-17.0) g/dL Hct (38.0-50.0) % MCV (80.0-98.0) fL MCH (27.0-32.0) pg MCHC (31.0-37.0) g/dL RDW Std Deviation (28.0-62.0) fl RDW Coeff of Aneudy (11.0-15.0) % Plt Count (150-400) K/uL MPV (7.40-12.00) fL Nucleated RBC % /100WBC Nucleated RBCs # K/uL INR 1.02 Sodium (136-148) mmol/L Potassium (3.5-5.1) mmol/L Chloride (98-107) mmol/L Carbon Dioxide (21.0-32.0) mmol/L BUN (7.0-18.0) mg/dL Creatinine (0.8-1.3) mg/dL Est Cr Clr Drug Dosing mL/min Estimated GFR (MDRD) ml/min Glucose (74-106) mg/dL POC Glucose 80 (60-110) mg/dL Hemoglobin A1c (4.5-6.2) % Calcium (8.5-10.1) mg/dL Total Bilirubin (0.2-1.0) mg/dL AST (15-37) IU/L ALT (14-63) IU/L Alkaline Phosphatase (46-116) U/L Troponin I 0.055 (0.000-0.056) ng/mL Total Protein (6.4-8.2) g/dL Albumin (3.4-5.0) g/dL Globulin (2.0-3.5) g/dL Albumin/Globulin Ratio (1.3-2.8) Triglycerides (0-200) mg/dL Cholesterol (50-200) mg/dL LDL Cholesterol, Calc (60-180) mg/dL VLDL Cholesterol (5-55) mg/dL HDL Cholesterol (40-60) mg/dL Cholesterol/HDL Ratio (3.3-6.0) 10/14/17 10/14/17 10/14/17 Range/Units 00:36 04:55 04:55 WBC 8.27 (4.0-11.0) K/uL RBC 4.77 (4.50-5.90) M/uL Hgb 14.6 (13.0-17.0) g/dL Hct 42.4 (38.0-50.0) % MCV 88.9 (80.0-98.0) fL MCH 30.6 (27.0-32.0) pg MCHC 34.4 (31.0-37.0) g/dL RDW Std Deviation 46.0 (28.0-62.0) fl RDW Coeff of Aneudy 14 (11.0-15.0) % Plt Count 229 (150-400) K/uL MPV 10.90 (7.40-12.00) fL Nucleated RBC % 0.0 /100WBC Nucleated RBCs # 0 K/uL INR Sodium 137 (136-148) mmol/L Potassium 4.2 (3.5-5.1) mmol/L Chloride 104 (98-107) mmol/L Carbon Dioxide 30.0 (21.0-32.0) mmol/L BUN 24 H (7.0-18.0) mg/dL Creatinine 1.5 H (0.8-1.3) mg/dL Est Cr Clr Drug Dosing 39.82 mL/min Estimated GFR (MDRD) 44.8 ml/min Glucose 159 H (74-106) mg/dL POC Glucose (60-110) mg/dL Hemoglobin A1c (4.5-6.2) % Calcium 9.2 (8.5-10.1) mg/dL Total Bilirubin 0.4 (0.2-1.0) mg/dL AST 13 L (15-37) IU/L ALT 16 (14-63) IU/L Alkaline Phosphatase 65 (46-116) U/L Troponin I < 0.050 (0.000-0.056) ng/mL Total Protein 7.3 (6.4-8.2) g/dL Albumin 3.4 (3.4-5.0) g/dL Globulin 3.9 H (2.0-3.5) g/dL Albumin/Globulin Ratio 0.9 L (1.3-2.8) Triglycerides (0-200) mg/dL Cholesterol (50-200) mg/dL LDL Cholesterol, Calc (60-180) mg/dL VLDL Cholesterol (5-55) mg/dL HDL Cholesterol (40-60) mg/dL Cholesterol/HDL Ratio (3.3-6.0) 10/14/17 10/14/17 10/14/17 Range/Units 04:55 04:55 05:00 WBC (4.0-11.0) K/uL RBC (4.50-5.90) M/uL Hgb (13.0-17.0) g/dL Hct (38.0-50.0) % MCV (80.0-98.0) fL MCH (27.0-32.0) pg MCHC (31.0-37.0) g/dL RDW Std Deviation (28.0-62.0) fl RDW Coeff of Aneudy (11.0-15.0) % Plt Count (150-400) K/uL MPV (7.40-12.00) fL Nucleated RBC % /100WBC Nucleated RBCs # K/uL INR 1.02 Sodium (136-148) mmol/L Potassium (3.5-5.1) mmol/L Chloride (98-107) mmol/L Carbon Dioxide (21.0-32.0) mmol/L BUN (7.0-18.0) mg/dL Creatinine (0.8-1.3) mg/dL Est Cr Clr Drug Dosing mL/min Estimated GFR (MDRD) ml/min Glucose (74-106) mg/dL POC Glucose (60-110) mg/dL Hemoglobin A1c 7.4 H (4.5-6.2) % Calcium (8.5-10.1) mg/dL Total Bilirubin (0.2-1.0) mg/dL AST (15-37) IU/L ALT (14-63) IU/L Alkaline Phosphatase (46-116) U/L Troponin I (0.000-0.056) ng/mL Total Protein (6.4-8.2) g/dL Albumin (3.4-5.0) g/dL Globulin (2.0-3.5) g/dL Albumin/Globulin Ratio (1.3-2.8) Triglycerides 222 H (0-200) mg/dL Cholesterol 165 (50-200) mg/dL LDL Cholesterol, Calc 91 (60-180) mg/dL VLDL Cholesterol 44 (5-55) mg/dL HDL Cholesterol 30 L (40-60) mg/dL Cholesterol/HDL Ratio 5.5 (3.3-6.0) 10/14/17 10/14/17 10/14/17 Range/Units 06:12 08:20 11:48 WBC (4.0-11.0) K/uL RBC (4.50-5.90) M/uL Hgb (13.0-17.0) g/dL Hct (38.0-50.0) % MCV (80.0-98.0) fL MCH (27.0-32.0) pg MCHC (31.0-37.0) g/dL RDW Std Deviation (28.0-62.0) fl RDW Coeff of Aneudy (11.0-15.0) % Plt Count (150-400) K/uL MPV (7.40-12.00) fL Nucleated RBC % /100WBC Nucleated RBCs # K/uL INR Sodium (136-148) mmol/L Potassium (3.5-5.1) mmol/L Chloride (98-107) mmol/L Carbon Dioxide (21.0-32.0) mmol/L BUN (7.0-18.0) mg/dL Creatinine (0.8-1.3) mg/dL Est Cr Clr Drug Dosing mL/min Estimated GFR (MDRD) ml/min Glucose (74-106) mg/dL POC Glucose 162 H 256 H 70 (60-110) mg/dL Hemoglobin A1c (4.5-6.2) % Calcium (8.5-10.1) mg/dL Total Bilirubin (0.2-1.0) mg/dL AST (15-37) IU/L ALT (14-63) IU/L Alkaline Phosphatase (46-116) U/L Troponin I (0.000-0.056) ng/mL Total Protein (6.4-8.2) g/dL Albumin (3.4-5.0) g/dL Globulin (2.0-3.5) g/dL Albumin/Globulin Ratio (1.3-2.8) Triglycerides (0-200) mg/dL Cholesterol (50-200) mg/dL LDL Cholesterol, Calc (60-180) mg/dL VLDL Cholesterol (5-55) mg/dL HDL Cholesterol (40-60) mg/dL Cholesterol/HDL Ratio (3.3-6.0) Med Orders - Current: Current Medications Acetaminophen (Tylenol) 650 mg PO Q4H PRN PRN Reason: Pain (Mild 1-3)/fever Albuterol/Ipratropium (Duoneb 3.0-0.5 Mg/3 Ml) 3 ml NEB Q4HRRT PRN PRN Reason: Shortness Of Breath/wheezing Carvedilol (Coreg) 6.25 mg PO BID [facility] Last Admin: 10/14/17 08:31 Dose: 6.25 mg Clopidogrel Bisulfate (Plavix) 75 mg PO DAILY [facility] Last Admin: 10/14/17 08:31 Dose: 75 mg Docusate Sodium (Colace) 100 mg PO BID PRN PRN Reason: Constipation Enalapril Maleate (Vasotec) 10 mg PO DAILY [facility] Last Admin: 10/14/17 08:31 Dose: 10 mg Enoxaparin Sodium (Lovenox) 110 mg SUBCUT Q12H [facility] Last Admin: 04/25/18 06:15 Dose: 110 mg Insulin Aspart (Novolog Mix 70-30) 24 unit SUBCUT QAM [facility] Last Admin: 10/14/17 08:21 Dose: 24 units Insulin Aspart (Novolog Mix 70-30) 15 unit SUBCUT QPM [facility] Last Admin: 10/13/17 17:45 Dose: Not Given Isosorbide Mononitrate (Imdur) 15 mg PO DAILY [facility] Last Admin: 10/14/17 08:30 Dose: 15 mg Meclizine HCl (Antivert) 25 mg PO TID PRN PRN Reason: unsteadyness Metformin HCl (Glucophage) 1,000 mg PO BID [facility] Last Admin: 10/14/17 08:30 Dose: 1,000 mg Morphine Sulfate (Morphine) 2 mg IVPUSH Q2H PRN PRN Reason: Pain (severe 7-10) Stop: 10/14/17 16:31 Sodium Chloride (Saline Flush) 10 ml FLUSH ASDIRECTED PRN PRN Reason: Keep Vein Open Sodium Chloride (Saline Flush) 2.5 ml FLUSH ASDIRECTED PRN PRN Reason: Keep Vein Open Sodium Chloride (Saline Flush) 10 ml FLUSH ASDIRECTED PRN PRN Reason: Keep Vein Open Sodium Chloride (Saline Flush) 2.5 ml FLUSH ASDIRECTED PRN PRN Reason: Keep Vein Open Warfarin Sodium (Coumadin) 0 mg PO .Pharmacy To Dose [facility] Warfarin Sodium (Coumadin) 5 mg PO DAILY@1400 ONE Stop: 10/14/17 14:01 Discontinued Medications Aspirin (Aspirin) 324 mg PO ONETIME ONE Stop: 10/13/17 12:02 Last Admin: 10/13/17 12:27 Dose: 324 mg Diltiazem HCl (Diltiazem) 10 mg IVPUSH ONETIME ONE Stop: 10/13/17 12:02 Last Admin: 10/13/17 12:29 Dose: 10 mg Enoxaparin Sodium (Lovenox) 30 mg SUBCUT Q24H [facility] Last Admin: 10/13/17 17:48 Dose: 30 mg Enoxaparin Sodium (Lovenox) 110 mg SUBCUT Q12H [facility] Enoxaparin Sodium (Lovenox) 80 mg SUBCUT ONETIME ONE Stop: 10/13/17 18:45 Last Admin: 10/13/17 19:30 Dose: 80 mg Sodium Chloride (Normal Saline) 1,000 mls @ 30 mls/hr IV ONETIME ONE Stop: 10/14/17 22:01 Last Infusion: 10/13/17 14:03 Dose: 30 mls/hr Warfarin Sodium (Coumadin) 5 mg PO ONETIME ONE Stop: 10/13/17 19:16 Last Admin: 10/13/17 19:29 Dose: 5 mg - Exam General: Alert, Oriented HEENT: Pupils Equal, Pupils Reactive Neck: Supple, Trachea Midline, No Thyromegaly. No: No JVD Lungs: Clear to Auscultation, Normal Respiratory Effort, Decreased Breath Sounds Cardiovascular: Irregular Rhythm, Tachycardia GI/Abdominal Exam: Normal Bowel Sounds, Soft, Non-Tender (Male) Exam: No Hernia, Normal Inspection Back Exam: Normal Inspection Skin: Warm, Dry, Intact Psy/Mental Status: Alert, Normal Affect EKG INTERPRETATION EKG Date: 10/14/17 Rhythm: A-Fib - Problem List & Annotations (1) Vertigo SNOMED Code(s): 630114801 Code(s): R42 - DIZZINESS AND GIDDINESS Status: Acute Current Visit: Yes (2) New onset atrial fibrillation SNOMED Code(s): 53625558 Code(s): I48.91 - UNSPECIFIED ATRIAL FIBRILLATION Status: Acute Current Visit: Yes (3) Chest pain, rule out acute myocardial infarction SNOMED Code(s): 20863028 Code(s): R07.9 - CHEST PAIN, UNSPECIFIED Status: Acute Current Visit: Yes (4) Atrial fibrillation with RVR SNOMED Code(s): 448186835883624 Code(s): I48.91 - UNSPECIFIED ATRIAL FIBRILLATION Status: Acute Current Visit: Yes - Problem List Review Problem List Initiated/Reviewed/Updated: Yes - My Orders Last 24 Hours: My Active Orders 10/13/17 16:27 Oxygen Therapy [RC] PRN Up ad Lissa [RC] ASDIRECTED VTE/DVT Education [RC] PER UNIT ROUTINE Vital Signs [RC] Q4H Acetaminophen [Tylenol] 650 mg PO Q4H PRN Albuterol/Ipratropium [DuoNeb 3.0-0.5 MG/3 ML] 3 ml NEB Q4HRRT PRN Docusate Sodium [Colace] 100 mg PO BID PRN Morphine 2 mg IVPUSH Q2H PRN Sodium Chloride 0.9% [Saline Flush] 10 ml FLUSH ASDIRECTED PRN Sodium Chloride 0.9% [Saline Flush] 2.5 ml FLUSH ASDIRECTED PRN Peripheral IV Insertion Adult [OM.PC] Routine Resuscitation Status Routine 10/13/17 16:34 RT Aerosol Therapy [RC] ASDIRECTED 10/13/17 17:34 EKG 12 Lead [EKG Documentation Completion] [RC] STAT 10/13/17 18:00 Insuln Asp Prot/Insulin Aspart [NovoLOG Mix 70-30] 15 unit SUBCUT QPM 10/13/17 18:28 Telemetry Monitoring [Cardiac Monitoring] [RC] Q8H 10/13/17 18:30 PT Evaluation and Treatment [CONS] Routine Meclizine [Antivert] 25 mg PO TID PRN 10/13/17 21:00 Carvedilol [Coreg] 6.25 mg PO BID metFORMIN [Glucophage] 1,000 mg PO BID 10/14/17 07:00 Enoxaparin [Lovenox] 110 mg SUBCUT Q12H 10/14/17 07:30 Accu Check [Blood Glucose Check, Bedside] [RC] TIDAC 10/14/17 09:00 Clopidogrel [Plavix] 75 mg PO DAILY Enalapril [Vasotec] 10 mg PO DAILY Insuln Asp Prot/Insulin Aspart [NovoLOG Mix 70-30] 24 unit SUBCUT QAM Isosorbide Mononitrate [Imdur] 15 mg PO DAILY 10/14/17 14:00 Warfarin [Coumadin] 5 mg PO DAILY@1400 ONE 10/14/17 Breakfast [employer] Diet [DIET] 10/14/17 Dinner 2 Gram Sodium Diet [DIET] - Plan Plan:: Assessment and plan 1) a fib with rvr - d/c coreg , metoprolol 25 mg po q 8 h , echo pending , f/up cardiology total anticoagulation with coumadin and lovenox. Echo pending. Chads score is 4 vertigo - meclizine 25 mg p[o TID prn for dizziness , PT vestibular 4) DM - continue metformine , insuline as per reconciliation CAD - continue isosorbid 30 mg po daily ischemic work up as outpatient dvt prof : heparin sq, bridged with Coumadin
[2017-10-14] MEDS ORDERED: Warfarin 5 MG Tab PO ONE (14:00)
[2017-10-14] MEDS ORDERED: Diltiazem 25 MG/5 ML SDV IVPUSH PRN ×2 (16:13→16:17)
[2017-10-14] MEDS: Metoprolol Tartrate 25 MG Tab PO SCH ×2 (17:00→23:23)
--- NOTE | 2017-10-14 18:45 | PCM.PN ---
- General Info Date of Service: 10/14/17 Admission Dx/Problem (Free Text): 82M CAD HLP HTN carotid stenosis with new onset afib RVR with chest pain sweating Subjective Update: He stated that he felt ok, he had diaphoresis this morning with Afib RVR 130-140 , diltiazem 10 mg IV was given, lasting for 30-40 mins, he stated that he did not have chest pain like he had when he started having chest pain with afib. Functional Status: Reports: Pain Controlled - Review of Systems General: Reports: No Symptoms, Other (sweat) HEENT: Reports: No Symptoms Pulmonary: Reports: No Symptoms Cardiovascular: Reports: No Symptoms Gastrointestinal: Reports: No Symptoms Genitourinary: Reports: No Symptoms Musculoskeletal: Reports: No Symptoms Skin: Reports: No Symptoms Neurological: Reports: No Symptoms - Patient Data Vitals - Most Recent: Last Vital Signs Temp 36.5 C 10/14/17 16:00 Pulse 78 10/14/17 17:00 Resp 20 10/14/17 16:00 BP 106/55 L 10/14/17 17:00 Pulse Ox 97 10/14/17 16:00 Weight - Most Recent: 109.679 kg I&O - Last 24 Hours: Intake & Output 10/14/17 10/14/17 10/14/17 06:59 14:59 22:59 Intake Total 240 Balance 240 Lab Results Last 24 Hours: Laboratory Results - last 24 hr 10/13/17 10/13/17 10/13/17 Range/Units 16:45 18:40 18:40 WBC (4.0-11.0) K/uL RBC (4.50-5.90) M/uL Hgb (13.0-17.0) g/dL Hct (38.0-50.0) % MCV (80.0-98.0) fL MCH (27.0-32.0) pg MCHC (31.0-37.0) g/dL RDW Std Deviation (28.0-62.0) fl RDW Coeff of Aneudy (11.0-15.0) % Plt Count (150-400) K/uL MPV (7.40-12.00) fL Nucleated RBC % /100WBC Nucleated RBCs # K/uL INR 1.02 Sodium (136-148) mmol/L Potassium (3.5-5.1) mmol/L Chloride (98-107) mmol/L Carbon Dioxide (21.0-32.0) mmol/L BUN (7.0-18.0) mg/dL Creatinine (0.8-1.3) mg/dL Est Cr Clr Drug Dosing mL/min Estimated GFR (MDRD) ml/min Glucose (74-106) mg/dL POC Glucose 80 (60-110) mg/dL Hemoglobin A1c (4.5-6.2) % Calcium (8.5-10.1) mg/dL Total Bilirubin (0.2-1.0) mg/dL AST (15-37) IU/L ALT (14-63) IU/L Alkaline Phosphatase (46-116) U/L Troponin I 0.055 (0.000-0.056) ng/mL Total Protein (6.4-8.2) g/dL Albumin (3.4-5.0) g/dL Globulin (2.0-3.5) g/dL Albumin/Globulin Ratio (1.3-2.8) Triglycerides (0-200) mg/dL Cholesterol (50-200) mg/dL LDL Cholesterol, Calc (60-180) mg/dL VLDL Cholesterol (5-55) mg/dL HDL Cholesterol (40-60) mg/dL Cholesterol/HDL Ratio (3.3-6.0) 10/14/17 10/14/17 10/14/17 Range/Units 00:36 04:55 04:55 WBC 8.27 (4.0-11.0) K/uL RBC 4.77 (4.50-5.90) M/uL Hgb 14.6 (13.0-17.0) g/dL Hct 42.4 (38.0-50.0) % MCV 88.9 (80.0-98.0) fL MCH 30.6 (27.0-32.0) pg MCHC 34.4 (31.0-37.0) g/dL RDW Std Deviation 46.0 (28.0-62.0) fl RDW Coeff of Aneudy 14 (11.0-15.0) % Plt Count 229 (150-400) K/uL MPV 10.90 (7.40-12.00) fL Nucleated RBC % 0.0 /100WBC Nucleated RBCs # 0 K/uL INR Sodium 137 (136-148) mmol/L Potassium 4.2 (3.5-5.1) mmol/L Chloride 104 (98-107) mmol/L Carbon Dioxide 30.0 (21.0-32.0) mmol/L BUN 24 H (7.0-18.0) mg/dL Creatinine 1.5 H (0.8-1.3) mg/dL Est Cr Clr Drug Dosing 39.82 mL/min Estimated GFR (MDRD) 44.8 ml/min Glucose 159 H (74-106) mg/dL POC Glucose (60-110) mg/dL Hemoglobin A1c (4.5-6.2) % Calcium 9.2 (8.5-10.1) mg/dL Total Bilirubin 0.4 (0.2-1.0) mg/dL AST 13 L (15-37) IU/L ALT 16 (14-63) IU/L Alkaline Phosphatase 65 (46-116) U/L Troponin I < 0.050 (0.000-0.056) ng/mL Total Protein 7.3 (6.4-8.2) g/dL Albumin 3.4 (3.4-5.0) g/dL Globulin 3.9 H (2.0-3.5) g/dL Albumin/Globulin Ratio 0.9 L (1.3-2.8) Triglycerides (0-200) mg/dL Cholesterol (50-200) mg/dL LDL Cholesterol, Calc (60-180) mg/dL VLDL Cholesterol (5-55) mg/dL HDL Cholesterol (40-60) mg/dL Cholesterol/HDL Ratio (3.3-6.0) 10/14/17 10/14/17 10/14/17 Range/Units 04:55 04:55 05:00 WBC (4.0-11.0) K/uL RBC (4.50-5.90) M/uL Hgb (13.0-17.0) g/dL Hct (38.0-50.0) % MCV (80.0-98.0) fL MCH (27.0-32.0) pg MCHC (31.0-37.0) g/dL RDW Std Deviation (28.0-62.0) fl RDW Coeff of Aneudy (11.0-15.0) % Plt Count (150-400) K/uL MPV (7.40-12.00) fL Nucleated RBC % /100WBC Nucleated RBCs # K/uL INR 1.02 Sodium (136-148) mmol/L Potassium (3.5-5.1) mmol/L Chloride (98-107) mmol/L Carbon Dioxide (21.0-32.0) mmol/L BUN (7.0-18.0) mg/dL Creatinine (0.8-1.3) mg/dL Est Cr Clr Drug Dosing mL/min Estimated GFR (MDRD) ml/min Glucose (74-106) mg/dL POC Glucose (60-110) mg/dL Hemoglobin A1c 7.4 H (4.5-6.2) % Calcium (8.5-10.1) mg/dL Total Bilirubin (0.2-1.0) mg/dL AST (15-37) IU/L ALT (14-63) IU/L Alkaline Phosphatase (46-116) U/L Troponin I (0.000-0.056) ng/mL Total Protein (6.4-8.2) g/dL Albumin (3.4-5.0) g/dL Globulin (2.0-3.5) g/dL Albumin/Globulin Ratio (1.3-2.8) Triglycerides 222 H (0-200) mg/dL Cholesterol 165 (50-200) mg/dL LDL Cholesterol, Calc 91 (60-180) mg/dL VLDL Cholesterol 44 (5-55) mg/dL HDL Cholesterol 30 L (40-60) mg/dL Cholesterol/HDL Ratio 5.5 (3.3-6.0) 10/14/17 10/14/17 10/14/17 Range/Units 06:12 08:20 11:48 WBC (4.0-11.0) K/uL RBC (4.50-5.90) M/uL Hgb (13.0-17.0) g/dL Hct (38.0-50.0) % MCV (80.0-98.0) fL MCH (27.0-32.0) pg MCHC (31.0-37.0) g/dL RDW Std Deviation (28.0-62.0) fl RDW Coeff of Aneudy (11.0-15.0) % Plt Count (150-400) K/uL MPV (7.40-12.00) fL Nucleated RBC % /100WBC Nucleated RBCs # K/uL INR Sodium (136-148) mmol/L Potassium (3.5-5.1) mmol/L Chloride (98-107) mmol/L Carbon Dioxide (21.0-32.0) mmol/L BUN (7.0-18.0) mg/dL Creatinine (0.8-1.3) mg/dL Est Cr Clr Drug Dosing mL/min Estimated GFR (MDRD) ml/min Glucose (74-106) mg/dL POC Glucose 162 H 256 H 70 (60-110) mg/dL Hemoglobin A1c (4.5-6.2) % Calcium (8.5-10.1) mg/dL Total Bilirubin (0.2-1.0) mg/dL AST (15-37) IU/L ALT (14-63) IU/L Alkaline Phosphatase (46-116) U/L Troponin I (0.000-0.056) ng/mL Total Protein (6.4-8.2) g/dL Albumin (3.4-5.0) g/dL Globulin (2.0-3.5) g/dL Albumin/Globulin Ratio (1.3-2.8) Triglycerides (0-200) mg/dL Cholesterol (50-200) mg/dL LDL Cholesterol, Calc (60-180) mg/dL VLDL Cholesterol (5-55) mg/dL HDL Cholesterol (40-60) mg/dL Cholesterol/HDL Ratio (3.3-6.0) 04/25/18 Range/Units 16:30 WBC (4.0-11.0) K/uL RBC (4.50-5.90) M/uL Hgb (13.0-17.0) g/dL Hct (38.0-50.0) % MCV (80.0-98.0) fL MCH (27.0-32.0) pg MCHC (31.0-37.0) g/dL RDW Std Deviation (28.0-62.0) fl RDW Coeff of Aneudy (11.0-15.0) % Plt Count (150-400) K/uL MPV (7.40-12.00) fL Nucleated RBC % /100WBC Nucleated RBCs # K/uL INR Sodium (136-148) mmol/L Potassium (3.5-5.1) mmol/L Chloride (98-107) mmol/L Carbon Dioxide (21.0-32.0) mmol/L BUN (7.0-18.0) mg/dL Creatinine (0.8-1.3) mg/dL Est Cr Clr Drug Dosing mL/min Estimated GFR (MDRD) ml/min Glucose (74-106) mg/dL POC Glucose 90 (60-110) mg/dL Hemoglobin A1c (4.5-6.2) % Calcium (8.5-10.1) mg/dL Total Bilirubin (0.2-1.0) mg/dL AST (15-37) IU/L ALT (14-63) IU/L Alkaline Phosphatase (46-116) U/L Troponin I (0.000-0.056) ng/mL Total Protein (6.4-8.2) g/dL Albumin (3.4-5.0) g/dL Globulin (2.0-3.5) g/dL Albumin/Globulin Ratio (1.3-2.8) Triglycerides (0-200) mg/dL Cholesterol (50-200) mg/dL LDL Cholesterol, Calc (60-180) mg/dL VLDL Cholesterol (5-55) mg/dL HDL Cholesterol (40-60) mg/dL Cholesterol/HDL Ratio (3.3-6.0) Med Orders - Current: Current Medications Acetaminophen (Tylenol) 650 mg PO Q4H PRN PRN Reason: Pain (Mild 1-3)/fever Albuterol/Ipratropium (Duoneb 3.0-0.5 Mg/3 Ml) 3 ml NEB Q4HRRT PRN PRN Reason: Shortness Of Breath/wheezing Clopidogrel Bisulfate (Plavix) 75 mg PO DAILY [facility] Last Admin: 10/14/17 08:31 Dose: 75 mg Diltiazem HCl (Diltiazem) 10 mg IVPUSH ONETIME PRN PRN Reason: Tachycardia Docusate Sodium (Colace) 100 mg PO BID PRN PRN Reason: Constipation Enalapril Maleate (Vasotec) 10 mg PO DAILY [facility] Last Admin: 10/14/17 08:31 Dose: 10 mg Enoxaparin Sodium (Lovenox) 110 mg SUBCUT Q12H [facility] Last Admin: 10/14/17 06:15 Dose: 110 mg Insulin Aspart (Novolog Mix 70-30) 24 unit SUBCUT QAM [facility] Last Admin: 10/14/17 08:21 Dose: 24 units Insulin Aspart (Novolog Mix 70-30) 15 unit SUBCUT QPM [facility] Last Admin: 10/13/17 17:45 Dose: Not Given Isosorbide Mononitrate (Imdur) 15 mg PO DAILY [facility] Last Admin: 10/14/17 08:30 Dose: 15 mg Meclizine HCl (Antivert) 25 mg PO TID PRN PRN Reason: unsteadyness Metformin HCl (Glucophage) 1,000 mg PO BID [facility] Last Admin: 10/14/17 08:30 Dose: 1,000 mg Metoprolol Tartrate (Lopressor) 25 mg PO Q8H [facility] Last Admin: 10/14/17 17:00 Dose: 25 mg Sodium Chloride (Saline Flush) 10 ml FLUSH ASDIRECTED PRN PRN Reason: Keep Vein Open Sodium Chloride (Saline Flush) 2.5 ml FLUSH ASDIRECTED PRN PRN Reason: Keep Vein Open Sodium Chloride (Saline Flush) 10 ml FLUSH ASDIRECTED PRN PRN Reason: Keep Vein Open Sodium Chloride (Saline Flush) 2.5 ml FLUSH ASDIRECTED PRN PRN Reason: Keep Vein Open Warfarin Sodium (Coumadin) 0 mg PO .Pharmacy To Dose [facility] Discontinued Medications Aspirin (Aspirin) 324 mg PO ONETIME ONE Stop: 10/13/17 12:02 Last Admin: 10/13/17 12:27 Dose: 324 mg Carvedilol (Coreg) 6.25 mg PO BID [facility] Last Admin: 10/14/17 08:31 Dose: 6.25 mg Diltiazem HCl (Diltiazem) 10 mg IVPUSH ONETIME ONE Stop: 10/13/17 12:02 Last Admin: 10/13/17 12:29 Dose: 10 mg Enoxaparin Sodium (Lovenox) 30 mg SUBCUT Q24H [facility] Last Admin: 10/13/17 17:48 Dose: 30 mg Enoxaparin Sodium (Lovenox) 110 mg SUBCUT Q12H [facility] Enoxaparin Sodium (Lovenox) 80 mg SUBCUT ONETIME ONE Stop: 10/13/17 18:45 Last Admin: 10/13/17 19:30 Dose: 80 mg Sodium Chloride (Normal Saline) 1,000 mls @ 30 mls/hr IV ONETIME ONE Stop: 10/14/17 22:01 Last Infusion: 10/13/17 14:03 Dose: 30 mls/hr Morphine Sulfate (Morphine) 2 mg IVPUSH Q2H PRN PRN Reason: Pain (severe 7-10) Stop: 10/14/17 16:31 Warfarin Sodium (Coumadin) 5 mg PO ONETIME ONE Stop: 10/13/17 19:16 Last Admin: 10/13/17 19:29 Dose: 5 mg Warfarin Sodium (Coumadin) 5 mg PO DAILY@1400 ONE Stop: 10/14/17 14:01 Last Admin: 10/14/17 13:47 Dose: 5 mg - Exam General: Alert, Oriented HEENT: Pupils Equal Neck: Supple Lungs: Clear to Auscultation, Normal Respiratory Effort Cardiovascular: Irregular Rhythm GI/Abdominal Exam: Normal Bowel Sounds, Soft (Male) Exam: No Hernia Back Exam: Normal Inspection Extremities: Normal Inspection EKG INTERPRETATION Rhythm: A-Fib - Problem List Review Problem List Initiated/Reviewed/Updated: Yes - My Orders Last 24 Hours: My Active Orders 10/14/17 08:00 Echo Comp wo Cont [US] Routine 10/14/17 16:00 Metoprolol Tartrate [Lopressor] 25 mg PO Q8H 10/14/17 16:17 Diltiazem 10 mg IVPUSH ONETIME PRN - Plan Plan:: 82M hx CAD HTN HLP carotid disease new onset Afib with chest pain diaphoresis 1. afib RVR chest pain diaphoresis, he would need ischemic work up, trop x3 -, echo pending, will repeat trop again and tomorrow in AM. Will change coreg to metoprolol 25 TID, and diltiazem 10 mg IV PRN. His [id number] 4, he needs chcf ATC, he is on coumadin. 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
[2017-10-15 05:47] LABS: CHLORIDE,CL 104 mmol/L (98-107); SODIUM,NA 137 mmol/L (136-148)
[2017-10-15] MEDS: Enoxaparin 60 MG/0.6 ML Syringe SUBCUT SCH ×2 (06:33→18:15)
[2017-10-15] MEDS: Isosorbide Mononitrate 30 MG Tab.ER PO SCH (07:59)
[2017-10-15] MEDS: Metoprolol Tartrate 25 MG Tab PO SCH ×2 (07:59→15:35)
[2017-10-15] MEDS: metFORMIN 500 MG Tab PO SCH ×2 (08:00→20:25)
[2017-10-15] MEDS: Clopidogrel 75 MG Tab PO SCH (08:00)
[2017-10-15] MEDS: Insuln Aspart Prot/Insulin Aspart 100 Units/ML 3 ML FlexPen SUBCUT SCH ×2 (08:09→18:17)
[2017-10-15] MEDS: Warfarin 5 MG Tab PO SCH ×2 (08:10→13:51)
--- NOTE | 2017-10-15 14:20 | PCM.PN ---
- General Info Date of Service: 10/15/17 Admission Dx/Problem (Free Text): Patient had tachycardia in 140 on monitor with walking . Echo shows a EF of 55 -60 %, left ventricular hypertrophy, trace Ao valve regurgitation Functional Status: Reports: Pain Controlled - Review of Systems General: Reports: No Symptoms, Other (sweats) HEENT: Reports: No Symptoms Pulmonary: Reports: No Symptoms Cardiovascular: Reports: Dyspnea on Exertion Gastrointestinal: Reports: No Symptoms Genitourinary: Reports: No Symptoms Musculoskeletal: Reports: No Symptoms Skin: Reports: No Symptoms Neurological: Reports: No Symptoms Psychiatric: Reports: No Symptoms - Patient Data Vitals - Most Recent: Last Vital Signs Temp 97.2 F 10/15/17 12:00 Pulse 78 10/15/17 12:00 Resp 16 10/15/17 12:00 BP 101/62 10/15/17 12:00 Pulse Ox 95 10/15/17 12:00 Weight - Most Recent: 241 lb 12.8 oz I&O - Last 24 Hours: Intake & Output 10/14/17 10/15/17 10/15/17 22:59 06:59 14:59 Intake Total 1010 500 Output Total 0 0 Balance 1010 500 Lab Results Last 24 Hours: Laboratory Results - last 24 hr 10/14/17 10/15/17 10/15/17 Range/Units 16:30 05:10 05:11 WBC (4.0-11.0) K/uL RBC (4.50-5.90) M/uL Hgb (13.0-17.0) g/dL Hct (38.0-50.0) % MCV (80.0-98.0) fL MCH (27.0-32.0) pg MCHC (31.0-37.0) g/dL RDW Std Deviation (28.0-62.0) fl RDW Coeff of Aneudy (11.0-15.0) % Plt Count (150-400) K/uL MPV (7.40-12.00) fL Neut % (Auto) (48.0-80.0) % Lymph % (Auto) (16.0-40.0) % [place] % (Auto) (0.0-15.0) % Eos % (Auto) (0.0-7.0) % Baso % (Auto) (0.0-1.5) % Neut # (Auto) (1.4-5.7) K/uL Lymph # (Auto) (0.6-2.4) K/uL [place] # (Auto) (0.0-0.8) K/uL Eos # (Auto) (0.0-0.7) K/uL Baso # (Auto) (0.0-0.1) K/uL Nucleated RBC % /100WBC Nucleated RBCs # K/uL INR 1.03 Sodium 137 (136-148) mmol/L Potassium 4.3 (3.5-5.1) mmol/L Chloride 104 (98-107) mmol/L Carbon Dioxide 26.8 (21.0-32.0) mmol/L BUN 28 H (7.0-18.0) mg/dL Creatinine 1.3 (0.8-1.3) mg/dL Est Cr Clr Drug Dosing 45.95 mL/min Estimated GFR (MDRD) 52.9 ml/min Glucose 201 H (74-106) mg/dL POC Glucose 90 (60-110) mg/dL Calcium 9.4 (8.5-10.1) mg/dL Troponin I < 0.050 (0.000-0.056) ng/mL 10/15/17 10/15/17 10/15/17 Range/Units 05:15 06:51 10:30 WBC 7.32 (4.0-11.0) K/uL RBC 4.54 (4.50-5.90) M/uL Hgb 13.7 (13.0-17.0) g/dL Hct 40.1 (38.0-50.0) % MCV 88.3 (80.0-98.0) fL MCH 30.2 (27.0-32.0) pg MCHC 34.2 (31.0-37.0) g/dL RDW Std Deviation 45.7 (28.0-62.0) fl RDW Coeff of Aneudy 14 (11.0-15.0) % Plt Count 204 (150-400) K/uL MPV 10.90 (7.40-12.00) fL Neut % (Auto) 57.8 (48.0-80.0) % Lymph % (Auto) 33.1 (16.0-40.0) % [place] % (Auto) 6.1 (0.0-15.0) % Eos % (Auto) 2.0 (0.0-7.0) % Baso % (Auto) 1.0 (0.0-1.5) % Neut # (Auto) 4.2 (1.4-5.7) K/uL Lymph # (Auto) 2.4 (0.6-2.4) K/uL [place] # (Auto) 0.5 (0.0-0.8) K/uL Eos # (Auto) 0.2 (0.0-0.7) K/uL Baso # (Auto) 0.1 (0.0-0.1) K/uL Nucleated RBC % 0.0 /100WBC Nucleated RBCs # 0 K/uL INR Sodium (136-148) mmol/L Potassium (3.5-5.1) mmol/L Chloride (98-107) mmol/L Carbon Dioxide (21.0-32.0) mmol/L BUN (7.0-18.0) mg/dL Creatinine (0.8-1.3) mg/dL Est Cr Clr Drug Dosing mL/min Estimated GFR (MDRD) ml/min Glucose (74-106) mg/dL POC Glucose 167 H (60-110) mg/dL Calcium (8.5-10.1) mg/dL Troponin I < 0.050 (0.000-0.056) ng/mL Med Orders - Current: Current Medications Acetaminophen (Tylenol) 650 mg PO Q4H PRN PRN Reason: Pain (Mild 1-3)/fever Albuterol/Ipratropium (Duoneb 3.0-0.5 Mg/3 Ml) 3 ml NEB Q4HRRT PRN PRN Reason: Shortness Of Breath/wheezing Clopidogrel Bisulfate (Plavix) 75 mg PO DAILY [facility] Last Admin: 10/15/17 08:00 Dose: 75 mg Diltiazem HCl (Diltiazem) 10 mg IVPUSH ONETIME PRN PRN Reason: Tachycardia Docusate Sodium (Colace) 100 mg PO BID PRN PRN Reason: Constipation Enalapril Maleate (Vasotec) 10 mg PO DAILY [facility] Last Admin: 10/15/17 08:00 Dose: 10 mg Enoxaparin Sodium (Lovenox) 110 mg SUBCUT Q12H [facility] Last Admin: 10/15/17 06:33 Dose: 110 mg Insulin Aspart (Novolog Mix 70-30) 24 unit SUBCUT QAM [facility] Last Admin: 10/15/17 08:09 Dose: 24 units Insulin Aspart (Novolog Mix 70-30) 15 unit SUBCUT QPM [facility] Last Admin: 10/14/17 18:59 Dose: Not Given Isosorbide Mononitrate (Imdur) 15 mg PO DAILY [facility] Last Admin: 10/15/17 07:59 Dose: 15 mg Meclizine HCl (Antivert) 25 mg PO TID PRN PRN Reason: unsteadyness Metformin HCl (Glucophage) 1,000 mg PO BID [facility] Last Admin: 10/15/17 08:00 Dose: 1,000 mg Metoprolol Tartrate (Lopressor) 25 mg PO Q8H [facility] Last Admin: 10/15/17 07:59 Dose: 25 mg Sodium Chloride (Saline Flush) 10 ml FLUSH ASDIRECTED PRN PRN Reason: Keep Vein Open Sodium Chloride (Saline Flush) 2.5 ml FLUSH ASDIRECTED PRN PRN Reason: Keep Vein Open Sodium Chloride (Saline Flush) 10 ml FLUSH ASDIRECTED PRN PRN Reason: Keep Vein Open Sodium Chloride (Saline Flush) 2.5 ml FLUSH ASDIRECTED PRN PRN Reason: Keep Vein Open Warfarin Sodium (Coumadin) 5 mg PO DAILY@1400 [facility] Last Admin: 10/15/17 13:51 Dose: 5 mg Discontinued Medications Aspirin (Aspirin) 324 mg PO ONETIME ONE Stop: 10/13/17 12:02 Last Admin: 10/13/17 12:27 Dose: 324 mg Carvedilol (Coreg) 6.25 mg PO BID [facility] Last Admin: 10/14/17 08:31 Dose: 6.25 mg Diltiazem HCl (Diltiazem) 10 mg IVPUSH ONETIME ONE Stop: 10/13/17 12:02 Last Admin: 10/13/17 12:29 Dose: 10 mg Enoxaparin Sodium (Lovenox) 30 mg SUBCUT Q24H [facility] Last Admin: 10/13/17 17:48 Dose: 30 mg Enoxaparin Sodium (Lovenox) 110 mg SUBCUT Q12H [facility] Enoxaparin Sodium (Lovenox) 80 mg SUBCUT ONETIME ONE Stop: 10/13/17 18:45 Last Admin: 10/13/17 19:30 Dose: 80 mg Sodium Chloride (Normal Saline) 1,000 mls @ 30 mls/hr IV ONETIME ONE Stop: 10/14/17 22:01 Last Infusion: 10/13/17 14:03 Dose: 30 mls/hr Morphine Sulfate (Morphine) 2 mg IVPUSH Q2H PRN PRN Reason: Pain (severe 7-10) Stop: 10/14/17 16:31 Warfarin Sodium (Coumadin) 5 mg PO ONETIME ONE Stop: 10/13/17 19:16 Last Admin: 10/13/17 19:29 Dose: 5 mg Warfarin Sodium (Coumadin) 5 mg PO DAILY@1400 ONE Stop: 10/14/17 14:01 Last Admin: 10/14/17 13:47 Dose: 5 mg - Exam Quality Assessment: Supplemental Oxygen General: Alert, Oriented HEENT: Pupils Equal, Pupils Reactive Neck: Supple, Trachea Midline, No Thyromegaly Lungs: Clear to Auscultation Cardiovascular: Irregular Rhythm GI/Abdominal Exam: Normal Bowel Sounds, Soft, Non-Tender, No Organomegaly Extremities: Normal Inspection Skin: Warm, Dry Neurological: No New Focal Deficit Psy/Mental Status: Alert, Normal Affect - Problem List & Annotations (1) Vertigo SNOMED Code(s): 619389731 Code(s): R42 - DIZZINESS AND GIDDINESS Status: Acute Current Visit: Yes (2) New onset atrial fibrillation SNOMED Code(s): 97392437 Code(s): I48.91 - UNSPECIFIED ATRIAL FIBRILLATION Status: Acute Current Visit: Yes (3) Chest pain, rule out acute myocardial infarction SNOMED Code(s): 20104021 Code(s): R07.9 - CHEST PAIN, UNSPECIFIED Status: Acute Current Visit: Yes (4) Atrial fibrillation with RVR SNOMED Code(s): 787469012688202 Code(s): I48.91 - UNSPECIFIED ATRIAL FIBRILLATION Status: Acute Current Visit: Yes - Problem List Review Problem List Initiated/Reviewed/Updated: Yes - My Orders Last 24 Hours: My Active Orders 10/14/17 Dinner 2 Gram Sodium Diet [DIET] - Plan Plan:: Assessment and plan 1) a fib with rvr - metoprolol 25 mg po q 8 h , f/up cardiology for medical optimisation total anticoagulation with coumadin and lovenox. vertigo - meclizine 25 mg p[o TID prn for dizziness , PT vestibular 4) DM - continue metformine , insuline as per reconciliation CAD - continue isosorbid 30 mg po daily ischemic work up as outpatient
[2017-10-15] MEDS ORDERED: Metoprolol Tartrate 25 MG Tab PO ONE (16:22)
[2017-10-15] MEDS: Metoprolol Tartrate 50 MG Tab PO SCH (18:08)
[2017-10-16] MEDS: Enoxaparin 60 MG/0.6 ML Syringe SUBCUT SCH (07:24)
[2017-10-16] MEDS ORDERED: Enoxaparin 150 MG/1 ML Syringe SUBCUT SCH (07:30)
[2017-10-16] MEDS ORDERED: Magnesium Sulfate/Water 4 GM in Premix Bag 1 BAG IV ONE (07:38)
--- NOTE | 2017-10-16 07:49 | PCM.PN ---
- General Info Date of Service: 10/15/17 Admission Dx/Problem (Free Text): 82M hx CAD without intervention new onset afib RVR Subjective Update: he statedtaht he walked in the hallway, denied chest pain sweating or SOB or dizziness. His HR went up to 130-140, on metoprolol 25 TID Functional Status: Reports: Pain Controlled - Review of Systems General: Reports: No Symptoms HEENT: Reports: No Symptoms Pulmonary: Reports: No Symptoms Cardiovascular: Reports: No Symptoms Gastrointestinal: Reports: No Symptoms Genitourinary: Reports: No Symptoms Musculoskeletal: Reports: No Symptoms Skin: Reports: No Symptoms Neurological: Reports: No Symptoms Psychiatric: Reports: No Symptoms - Patient Data Vitals - Most Recent: Last Vital Signs Temp 36.7 C 10/16/17 04:00 Pulse 69 10/16/17 04:00 Resp 17 10/16/17 04:00 BP 118/70 10/16/17 04:00 Pulse Ox 96 10/16/17 04:00 Weight - Most Recent: 109.679 kg I&O - Last 24 Hours: Intake & Output 10/15/17 10/16/17 10/16/17 22:59 06:59 14:59 Intake Total 560 800 Balance 560 800 Lab Results Last 24 Hours: Laboratory Results - last 24 hr 10/15/17 10/15/17 10/15/17 Range/Units 06:51 10:30 11:34 WBC (4.0-11.0) K/uL RBC (4.50-5.90) M/uL Hgb (13.0-17.0) g/dL Hct (38.0-50.0) % MCV (80.0-98.0) fL MCH (27.0-32.0) pg MCHC (31.0-37.0) g/dL RDW Std Deviation (28.0-62.0) fl RDW Coeff of Aneudy (11.0-15.0) % Plt Count (150-400) K/uL MPV (7.40-12.00) fL Neut % (Auto) (48.0-80.0) % Lymph % (Auto) (16.0-40.0) % [place] % (Auto) (0.0-15.0) % Eos % (Auto) (0.0-7.0) % Baso % (Auto) (0.0-1.5) % Neut # (Auto) (1.4-5.7) K/uL Lymph # (Auto) (0.6-2.4) K/uL [place] # (Auto) (0.0-0.8) K/uL Eos # (Auto) (0.0-0.7) K/uL Baso # (Auto) (0.0-0.1) K/uL Nucleated RBC % /100WBC Nucleated RBCs # K/uL INR Sodium (136-148) mmol/L Potassium (3.5-5.1) mmol/L Chloride (98-107) mmol/L Carbon Dioxide (21.0-32.0) mmol/L BUN (7.0-18.0) mg/dL Creatinine (0.8-1.3) mg/dL Est Cr Clr Drug Dosing mL/min Estimated GFR (MDRD) ml/min Glucose (74-106) mg/dL POC Glucose 167 H 144 H (60-110) mg/dL Calcium (8.5-10.1) mg/dL Magnesium (1.5-2.0) mg/dL Troponin I < 0.050 (0.000-0.056) ng/mL 10/15/17 10/16/17 10/16/17 Range/Units 16:11 05:59 05:59 WBC 7.82 (4.0-11.0) K/uL RBC 4.54 (4.50-5.90) M/uL Hgb 13.5 (13.0-17.0) g/dL Hct 39.8 (38.0-50.0) % MCV 87.7 (80.0-98.0) fL MCH 29.7 (27.0-32.0) pg MCHC 33.9 (31.0-37.0) g/dL RDW Std Deviation 45.1 (28.0-62.0) fl RDW Coeff of Aneudy 14 (11.0-15.0) % Plt Count 196 (150-400) K/uL MPV 11.00 (7.40-12.00) fL Neut % (Auto) 58.6 (48.0-80.0) % Lymph % (Auto) 31.6 (16.0-40.0) % [place] % (Auto) 7.2 (0.0-15.0) % Eos % (Auto) 2.0 (0.0-7.0) % Baso % (Auto) 0.6 (0.0-1.5) % Neut # (Auto) 4.6 (1.4-5.7) K/uL Lymph # (Auto) 2.5 H (0.6-2.4) K/uL [place] # (Auto) 0.6 (0.0-0.8) K/uL Eos # (Auto) 0.2 (0.0-0.7) K/uL Baso # (Auto) 0.1 (0.0-0.1) K/uL Nucleated RBC % 0.0 /100WBC Nucleated RBCs # 0 K/uL INR 1.08 Sodium (136-148) mmol/L Potassium (3.5-5.1) mmol/L Chloride (98-107) mmol/L Carbon Dioxide (21.0-32.0) mmol/L BUN (7.0-18.0) mg/dL Creatinine (0.8-1.3) mg/dL Est Cr Clr Drug Dosing mL/min Estimated GFR (MDRD) ml/min Glucose (74-106) mg/dL POC Glucose 116 H (60-110) mg/dL Calcium (8.5-10.1) mg/dL Magnesium (1.5-2.0) mg/dL Troponin I (0.000-0.056) ng/mL 10/16/17 10/16/17 Range/Units 05:59 06:26 WBC (4.0-11.0) K/uL RBC (4.50-5.90) M/uL Hgb (13.0-17.0) g/dL Hct (38.0-50.0) % MCV (80.0-98.0) fL MCH (27.0-32.0) pg MCHC (31.0-37.0) g/dL RDW Std Deviation (28.0-62.0) fl RDW Coeff of Aneudy (11.0-15.0) % Plt Count (150-400) K/uL MPV (7.40-12.00) fL Neut % (Auto) (48.0-80.0) % Lymph % (Auto) (16.0-40.0) % [place] % (Auto) (0.0-15.0) % Eos % (Auto) (0.0-7.0) % Baso % (Auto) (0.0-1.5) % Neut # (Auto) (1.4-5.7) K/uL Lymph # (Auto) (0.6-2.4) K/uL [place] # (Auto) (0.0-0.8) K/uL Eos # (Auto) (0.0-0.7) K/uL Baso # (Auto) (0.0-0.1) K/uL Nucleated RBC % /100WBC Nucleated RBCs # K/uL INR Sodium 141 (136-148) mmol/L Potassium 4.2 (3.5-5.1) mmol/L Chloride 104 (98-107) mmol/L Carbon Dioxide 27.8 (21.0-32.0) mmol/L BUN 33 H (7.0-18.0) mg/dL Creatinine 1.3 (0.8-1.3) mg/dL Est Cr Clr Drug Dosing 45.95 mL/min Estimated GFR (MDRD) 52.9 ml/min Glucose 114 H (74-106) mg/dL POC Glucose 109 (60-110) mg/dL Calcium 9.4 (8.5-10.1) mg/dL Magnesium 1.2 L (1.5-2.0) mg/dL Troponin I (0.000-0.056) ng/mL Med Orders - Current: Current Medications Acetaminophen (Tylenol) 650 mg PO Q4H PRN PRN Reason: Pain (Mild 1-3)/fever Albuterol/Ipratropium (Duoneb 3.0-0.5 Mg/3 Ml) 3 ml NEB Q4HRRT PRN PRN Reason: Shortness Of Breath/wheezing Clopidogrel Bisulfate (Plavix) 75 mg PO DAILY [facility] Last Admin: 10/15/17 08:00 Dose: 75 mg Diltiazem HCl (Diltiazem) 10 mg IVPUSH ONETIME PRN PRN Reason: Tachycardia Docusate Sodium (Colace) 100 mg PO BID PRN PRN Reason: Constipation Enalapril Maleate (Vasotec) 10 mg PO DAILY [facility] Last Admin: 10/15/17 08:00 Dose: 10 mg Enoxaparin Sodium (Lovenox) 110 mg SUBCUT Q12H [facility] Magnesium Sulfate 4 gm/ Premix 100 mls @ 50 mls/hr IV ONETIME ONE Stop: 10/16/17 09:37 Insulin Aspart (Novolog Mix 70-30) 24 unit SUBCUT QAM [facility] Last Admin: 10/15/17 08:09 Dose: 24 units Insulin Aspart (Novolog Mix 70-30) 15 unit SUBCUT QPM [facility] Last Admin: 10/15/17 18:17 Dose: 15 units Isosorbide Mononitrate (Imdur) 15 mg PO DAILY [facility] Last Admin: 10/15/17 07:59 Dose: 15 mg Meclizine HCl (Antivert) 25 mg PO TID PRN PRN Reason: unsteadyness Metformin HCl (Glucophage) 1,000 mg PO BID [facility] Last Admin: 10/15/17 20:25 Dose: 1,000 mg Metoprolol Tartrate (Lopressor) 50 mg PO TIDMEALS [facility] Last Admin: 10/15/17 18:08 Dose: 50 mg Sodium Chloride (Saline Flush) 10 ml FLUSH ASDIRECTED PRN PRN Reason: Keep Vein Open Sodium Chloride (Saline Flush) 2.5 ml FLUSH ASDIRECTED PRN PRN Reason: Keep Vein Open Sodium Chloride (Saline Flush) 10 ml FLUSH ASDIRECTED PRN PRN Reason: Keep Vein Open Sodium Chloride (Saline Flush) 2.5 ml FLUSH ASDIRECTED PRN PRN Reason: Keep Vein Open Warfarin Sodium (Coumadin) 5 mg PO DAILY@1400 [facility] Last Admin: 10/15/17 13:51 Dose: 5 mg Discontinued Medications Aspirin (Aspirin) 324 mg PO ONETIME ONE Stop: 10/13/17 12:02 Last Admin: 10/13/17 12:27 Dose: 324 mg Carvedilol (Coreg) 6.25 mg PO BID [facility] Last Admin: 10/14/17 08:31 Dose: 6.25 mg Diltiazem HCl (Diltiazem) 10 mg IVPUSH ONETIME ONE Stop: 10/13/17 12:02 Last Admin: 10/13/17 12:29 Dose: 10 mg Enoxaparin Sodium (Lovenox) 30 mg SUBCUT Q24H [facility] Last Admin: 10/13/17 17:48 Dose: 30 mg Enoxaparin Sodium (Lovenox) 110 mg SUBCUT Q12H [facility] Enoxaparin Sodium (Lovenox) 80 mg SUBCUT ONETIME ONE Stop: 10/13/17 18:45 Last Admin: 10/13/17 19:30 Dose: 80 mg Enoxaparin Sodium (Lovenox) 110 mg SUBCUT Q12H [facility] Last Admin: 10/16/17 07:24 Dose: Not Given Sodium Chloride (Normal Saline) 1,000 mls @ 30 mls/hr IV ONETIME ONE Stop: 10/14/17 22:01 Last Infusion: 10/13/17 14:03 Dose: 30 mls/hr Metoprolol Tartrate (Lopressor) 25 mg PO Q8H [facility] Last Admin: 10/15/17 15:35 Dose: 25 mg Metoprolol Tartrate (Lopressor) 25 mg PO ONETIME ONE Stop: 10/15/17 16:23 Last Admin: 10/15/17 18:06 Dose: 25 mg Morphine Sulfate (Morphine) 2 mg IVPUSH Q2H PRN PRN Reason: Pain (severe 7-10) Stop: 10/14/17 16:31 Warfarin Sodium (Coumadin) 5 mg PO ONETIME ONE Stop: 10/13/17 19:16 Last Admin: 10/13/17 19:29 Dose: 5 mg Warfarin Sodium (Coumadin) 5 mg PO DAILY@1400 ONE Stop: 10/14/17 14:01 Last Admin: 10/14/17 13:47 Dose: 5 mg - Exam General: Alert, Oriented HEENT: Pupils Equal, Pupils Reactive Neck: Supple, No JVD Lungs: Clear to Auscultation Cardiovascular: Irregular Rhythm GI/Abdominal Exam: Normal Bowel Sounds (Male) Exam: No Hernia Back Exam: Normal Inspection EKG INTERPRETATION Rhythm: A-Fib - Problem List Review Problem List Initiated/Reviewed/Updated: Yes - My Orders Last 24 Hours: My Active Orders 10/15/17 16:22 EKG 12 Lead [EKG Documentation Completion] [RC] ROUTINE 10/15/17 17:30 Metoprolol Tartrate [Lopressor] 50 mg PO TIDMEALS - Plan Plan:: 82M hx CAD HTN HLP carotid disease new onset Afib with chest pain diaphoresis 1. afib RVR chest pain diaphoresis, he would need ischemic work up, trop x3 -, echo pending, will repeat trop again and tomorrow in AM. Will change coreg to metoprolol 25 TID, and diltiazem 10 mg IV PRN. His [id number] 4, he needs senior controls engineer ATC, he is on coumadin. 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
[2017-10-16] MEDS: Isosorbide Mononitrate 30 MG Tab.ER PO SCH (08:06)
[2017-10-16] MEDS: metFORMIN 500 MG Tab PO SCH (08:07)
[2017-10-16] MEDS: Metoprolol Tartrate 50 MG Tab PO SCH (08:08)
[2017-10-16] MEDS: Clopidogrel 75 MG Tab PO SCH (08:08)
[2017-10-16] MEDS: Insuln Aspart Prot/Insulin Aspart 100 Units/ML 3 ML FlexPen SUBCUT SCH (09:14)
--- NOTE | 2017-10-16 11:19 | PCM.DCSUM1 ---
Discharge Summary - Hospital Course Brief History: This 82-year-old male with pmh of HTN, CAD, DM type 2, and dyslipidemia presented to the ED with complaints of episodes of shortness of breath diaphoresis nausea and chest pain that last for about 15-20 minutes. The patient says he has had shortness of breath with activity and some diaphoresis the last one month and saw his teachers aide , Dr Huntley, last week, and mention this but no further testing was prescribed. The patient states compliance with his medications and says he has never had a heart attack but says that he has had irregular beats before but not rhythm problems that he knows the name of. The patient says that when he does activities or even walk short distances he feels short of breath and gets sweaty which she told the teachers aide. He denies abdominal pain or nausea and no leg pain or swelling. The patient says he only sleeps on one pillow at night and over the last one month he does not wake in the middle the night short of breath. In the ED labwork WNL, EKG reveal new onset Afib with RVR at times. Troponin negative. He was admitted observation for chest pain and new onset afib - Discharge Data Discharge Date: 10/16/17 Discharge Disposition: Home, Self-Care 01 Condition: Stable - Patient Summary/Data Consults: Consultations 10/13/17 13:47 Consult to Physician [CONS] Stat 10/13/17 18:30 PT Evaluation and Treatment [CONS] Routine - Patient Instructions Diet: Heart Healthy Diet, Diabetic Diet Activity: No Strenuous Activities, Rest and Relax Today Showering/Bathing: May Shower Notify Provider of: Fever, Increased Pain, Swelling and Redness, Drainage, Nausea and/or Vomiting Other/Special Instructions: Monitor for bleeding, and if bleeding occurs notify provider immediately. - Discharge Plan Prescriptions/Med Rec: Metoprolol Tartrate [Lopressor] 75 mg PO TID #135 tab Warfarin [Coumadin] 5 mg PO DAILY@1400 #10 tablet Home Medications: Home Meds Enalapril Maleate 10 mg PO DAILY 11/16/13 [History] Insuln Asp Prot/Insulin Aspart [NovoLOG Mix 70-30] 24 unit SQ QAM 11/16/13 [ History] metFORMIN HCl [Metformin HCl] 1,000 mg PO BID 05/28/14 [History] Clopidogrel Bisulfate [Plavix] 75 mg PO DAILY 03/12/16 [History] Insuln Asp Prot/Insulin Aspart [NovoLOG Mix 70-30] 15 unit SQ QPM 03/12/16 [ History] Isosorbide Mononitrate [Isosorbide Mononitrate ER] 15 mg PO DAILY 03/16/16 [ History] Glimepiride 1 mg PO WITHBREAKFAST 10/13/17 [History] Hydrochlorothiazide 12.5 mg PO DAILY 10/13/17 [History] Metoprolol Tartrate [Lopressor] 75 mg PO TID #135 tab 10/16/17 [Rx] Warfarin [Coumadin] 5 mg PO DAILY@1400 #10 tablet 10/16/17 [Rx] Patient Handouts: Metoprolol tablets, Warfarin tablets, Nonspecific Chest Pain , [id number] Referrals: Makenzie Wilder MD [Physician] - 10/22/17 10:30 am Sy Mata MD [Physician] - 10/23/17 9:00 am - Discharge Summary/Plan Comment DC Time >30 min.: No Discharge Summary/Plan Comment: Discharge Diagnoses: New onset Atrial Fibrillation Anticoagulation CAD HTN Dyslipidemia DM type 2 Edward was admitted for chest pain and new onset afib. Troponins remained negative and ACS ruled out. He was noted to have intermittent Afib with RVR, rates up to 150s, with some symptoms, such as diaphoresis and SOB. Dr Wilder, Cardiology was consulted and discontinued Coreg and started Metoprolol 25 mg TID. HR improved, but with activity continued to elevated to 150s, Edward was asymptomatic. Metoprolol was increased to 75 mg TID today and patient had heart rates elevating to 130s with activity but he was ambulating without dyspnea and no chest pain or diaphoresis. He was started on Coumadin for chronic anticoagulation due to CHADSVASC score of 4. INR today was 1.08. He will be continued on 5 mg over the weekend with INR check with Dr Mata Thursday next week. He will be continued on Metoprolol 75 mg TID. He is to continue all other medications with discontinuation of Coreg. He was educating on monitoring for sings of increased bleeding. He verbalized understanding. Dr Wilder will arrange Lexiscan. Edward was encouraged to return to the ED or clinic if concerns should arise. - General Info Date of Service: 10/16/17 Admission Dx/Problem (Free Text: 82M hx CAD without intervention new onset afib RVR Subjective Update: Feeling good this morning, having no chest pain or shortness of breath. Very eager for discharge home today. NO dizziness or lightheadedness. Has been up ambulating in hallway. Functional Status: Reports: Tolerating Diet, Ambulating, Urinating - Review of Systems General: Reports: No Symptoms. Denies: Fever, Weakness HEENT: Reports: Post Nasal Drip. Denies: Sinus Congestion, Visual Changes Pulmonary: Reports: No Symptoms. Denies: Shortness of Breath, Cough Cardiovascular: Reports: No Symptoms. Denies: Chest Pain, Palpitations, Lightheadedness Gastrointestinal: Reports: No Symptoms. Denies: Abdominal Pain, Nausea, Vomiting Genitourinary: Reports: No Symptoms Neurological: Reports: No Symptoms Psychiatric: Reports: No Symptoms - Patient Data Vitals - Most Recent: Last Vital Signs Temp 97 F 10/16/17 08:00 Pulse 79 10/16/17 08:08 Resp 14 10/16/17 08:00 BP 134/77 10/16/17 08:09 Pulse Ox 96 10/16/17 08:00 Weight - Most Recent: 109.679 kg I&O - Last 24 hours: Intake & Output 10/15/17 10/16/17 10/16/17 22:59 06:59 14:59 Intake Total 560 800 Balance 560 800 Lab Results - Last 24 hrs: Laboratory Results - last 24 hr 10/15/17 10/15/17 10/15/17 Range/Units 06:51 10:30 11:34 WBC (4.0-11.0) K/uL RBC (4.50-5.90) M/uL Hgb (13.0-17.0) g/dL Hct (38.0-50.0) % MCV (80.0-98.0) fL MCH (27.0-32.0) pg MCHC (31.0-37.0) g/dL RDW Std Deviation (28.0-62.0) fl RDW Coeff of Aneudy (11.0-15.0) % Plt Count (150-400) K/uL MPV (7.40-12.00) fL Neut % (Auto) (48.0-80.0) % Lymph % (Auto) (16.0-40.0) % Carroll % (Auto) (0.0-15.0) % Eos % (Auto) (0.0-7.0) % Baso % (Auto) (0.0-1.5) % Neut # (Auto) (1.4-5.7) K/uL Lymph # (Auto) (0.6-2.4) K/uL Carroll # (Auto) (0.0-0.8) K/uL Eos # (Auto) (0.0-0.7) K/uL Baso # (Auto) (0.0-0.1) K/uL Nucleated RBC % /100WBC Nucleated RBCs # K/uL INR Sodium (136-148) mmol/L Potassium (3.5-5.1) mmol/L Chloride (98-107) mmol/L Carbon Dioxide (21.0-32.0) mmol/L BUN (7.0-18.0) mg/dL Creatinine (0.8-1.3) mg/dL Est Cr Clr Drug Dosing mL/min Estimated GFR (MDRD) ml/min Glucose (74-106) mg/dL POC Glucose 167 H 144 H (60-110) mg/dL Calcium (8.5-10.1) mg/dL Magnesium (1.5-2.0) mg/dL Troponin I < 0.050 (0.000-0.056) ng/mL 10/15/17 10/16/17 10/16/17 Range/Units 16:11 05:59 05:59 WBC 7.82 (4.0-11.0) K/uL RBC 4.54 (4.50-5.90) M/uL Hgb 13.5 (13.0-17.0) g/dL Hct 39.8 (38.0-50.0) % MCV 87.7 (80.0-98.0) fL MCH 29.7 (27.0-32.0) pg MCHC 33.9 (31.0-37.0) g/dL RDW Std Deviation 45.1 (28.0-62.0) fl RDW Coeff of Aneudy 14 (11.0-15.0) % Plt Count 196 (150-400) K/uL MPV 11.00 (7.40-12.00) fL Neut % (Auto) 58.6 (48.0-80.0) % Lymph % (Auto) 31.6 (16.0-40.0) % Carroll % (Auto) 7.2 (0.0-15.0) % Eos % (Auto) 2.0 (0.0-7.0) % Baso % (Auto) 0.6 (0.0-1.5) % Neut # (Auto) 4.6 (1.4-5.7) K/uL Lymph # (Auto) 2.5 H (0.6-2.4) K/uL Carroll # (Auto) 0.6 (0.0-0.8) K/uL Eos # (Auto) 0.2 (0.0-0.7) K/uL Baso # (Auto) 0.1 (0.0-0.1) K/uL Nucleated RBC % 0.0 /100WBC Nucleated RBCs # 0 K/uL INR 1.08 Sodium (136-148) mmol/L Potassium (3.5-5.1) mmol/L Chloride (98-107) mmol/L Carbon Dioxide (21.0-32.0) mmol/L BUN (7.0-18.0) mg/dL Creatinine (0.8-1.3) mg/dL Est Cr Clr Drug Dosing mL/min Estimated GFR (MDRD) ml/min Glucose (74-106) mg/dL POC Glucose 116 H (60-110) mg/dL Calcium (8.5-10.1) mg/dL Magnesium (1.5-2.0) mg/dL Troponin I (0.000-0.056) ng/mL 10/16/17 10/16/17 10/16/17 Range/Units 05:59 06:26 09:10 WBC (4.0-11.0) K/uL RBC (4.50-5.90) M/uL Hgb (13.0-17.0) g/dL Hct (38.0-50.0) % MCV (80.0-98.0) fL MCH (27.0-32.0) pg MCHC (31.0-37.0) g/dL RDW Std Deviation (28.0-62.0) fl RDW Coeff of Aneudy (11.0-15.0) % Plt Count (150-400) K/uL MPV (7.40-12.00) fL Neut % (Auto) (48.0-80.0) % Lymph % (Auto) (16.0-40.0) % Carroll % (Auto) (0.0-15.0) % Eos % (Auto) (0.0-7.0) % Baso % (Auto) (0.0-1.5) % Neut # (Auto) (1.4-5.7) K/uL Lymph # (Auto) (0.6-2.4) K/uL Carroll # (Auto) (0.0-0.8) K/uL Eos # (Auto) (0.0-0.7) K/uL Baso # (Auto) (0.0-0.1) K/uL Nucleated RBC % /100WBC Nucleated RBCs # K/uL INR Sodium 141 (136-148) mmol/L Potassium 4.2 (3.5-5.1) mmol/L Chloride 104 (98-107) mmol/L Carbon Dioxide 27.8 (21.0-32.0) mmol/L BUN 33 H (7.0-18.0) mg/dL Creatinine 1.3 (0.8-1.3) mg/dL Est Cr Clr Drug Dosing 45.95 mL/min Estimated GFR (MDRD) 52.9 ml/min Glucose 114 H (74-106) mg/dL POC Glucose 109 169 H (60-110) mg/dL Calcium 9.4 (8.5-10.1) mg/dL Magnesium 1.2 L (1.5-2.0) mg/dL Troponin I (0.000-0.056) ng/mL Med Orders - Current: Current Medications Acetaminophen (Tylenol) 650 mg PO Q4H PRN PRN Reason: Pain (Mild 1-3)/fever Albuterol/Ipratropium (Duoneb 3.0-0.5 Mg/3 Ml) 3 ml NEB Q4HRRT PRN PRN Reason: Shortness Of Breath/wheezing Clopidogrel Bisulfate (Plavix) 75 mg PO DAILY [facility] Last Admin: 10/16/17 08:08 Dose: 75 mg Diltiazem HCl (Diltiazem) 10 mg IVPUSH ONETIME PRN PRN Reason: Tachycardia Docusate Sodium (Colace) 100 mg PO BID PRN PRN Reason: Constipation Enalapril Maleate (Vasotec) 10 mg PO DAILY [facility] Last Admin: 10/16/17 08:09 Dose: 10 mg Enoxaparin Sodium (Lovenox) 110 mg SUBCUT Q12H [facility] Last Admin: 10/16/17 07:59 Dose: 110 mg Insulin Aspart (Novolog Mix 70-30) 24 unit SUBCUT QAM [facility] Last Admin: 10/16/17 09:14 Dose: 24 units Insulin Aspart (Novolog Mix 70-30) 15 unit SUBCUT QPM [facility] Last Admin: 10/15/17 18:17 Dose: 15 units Isosorbide Mononitrate (Imdur) 15 mg PO DAILY [facility] Last Admin: 10/16/17 08:06 Dose: 15 mg Meclizine HCl (Antivert) 25 mg PO TID PRN PRN Reason: unsteadyness Metformin HCl (Glucophage) 1,000 mg PO BID [facility] Last Admin: 10/16/17 08:07 Dose: 1,000 mg Metoprolol Tartrate (Lopressor) 75 mg PO TIDMEALS [facility] Sodium Chloride (Saline Flush) 10 ml FLUSH ASDIRECTED PRN PRN Reason: Keep Vein Open Sodium Chloride (Saline Flush) 2.5 ml FLUSH ASDIRECTED PRN PRN Reason: Keep Vein Open Sodium Chloride (Saline Flush) 10 ml FLUSH ASDIRECTED PRN PRN Reason: Keep Vein Open Sodium Chloride (Saline Flush) 2.5 ml FLUSH ASDIRECTED PRN PRN Reason: Keep Vein Open Warfarin Sodium (Coumadin) 5 mg PO DAILY@1400 [facility] Last Admin: 10/15/17 13:51 Dose: 5 mg Discontinued Medications Aspirin (Aspirin) 324 mg PO ONETIME ONE Stop: 10/13/17 12:02 Last Admin: 10/13/17 12:27 Dose: 324 mg Carvedilol (Coreg) 6.25 mg PO BID [facility] Last Admin: 10/14/17 08:31 Dose: 6.25 mg Diltiazem HCl (Diltiazem) 10 mg IVPUSH ONETIME ONE Stop: 10/13/17 12:02 Last Admin: 10/13/17 12:29 Dose: 10 mg Enoxaparin Sodium (Lovenox) 30 mg SUBCUT Q24H [facility] Last Admin: 10/13/17 17:48 Dose: 30 mg Enoxaparin Sodium (Lovenox) 110 mg SUBCUT Q12H NILSA Enoxaparin Sodium (Lovenox) 80 mg SUBCUT ONETIME ONE Stop: 10/13/17 18:45 Last Admin: 10/13/17 19:30 Dose: 80 mg Enoxaparin Sodium (Lovenox) 110 mg SUBCUT Q12H [facility] Last Admin: 10/16/17 07:24 Dose: Not Given Sodium Chloride (Normal Saline) 1,000 mls @ 30 mls/hr IV ONETIME ONE Stop: 10/14/17 22:01 Last Infusion: 10/13/17 14:03 Dose: 30 mls/hr Magnesium Sulfate 4 gm/ Premix 100 mls @ 50 mls/hr IV ONETIME ONE Stop: 10/16/17 09:37 Last Admin: 10/16/17 08:02 Dose: 50 mls/hr Metoprolol Tartrate (Lopressor) 25 mg PO Q8H [facility] Last Admin: 10/15/17 15:35 Dose: 25 mg Metoprolol Tartrate (Lopressor) 25 mg PO ONETIME ONE Stop: 10/15/17 16:23 Last Admin: 10/15/17 18:06 Dose: 25 mg Metoprolol Tartrate (Lopressor) 50 mg PO TIDMEALS [facility] Last Admin: 10/16/17 08:08 Dose: 50 mg Morphine Sulfate (Morphine) 2 mg IVPUSH Q2H PRN PRN Reason: Pain (severe 7-10) Stop: 10/14/17 16:31 Warfarin Sodium (Coumadin) 5 mg PO ONETIME ONE Stop: 10/13/17 19:16 Last Admin: 10/13/17 19:29 Dose: 5 mg Warfarin Sodium (Coumadin) 5 mg PO DAILY@1400 ONE Stop: 10/14/17 14:01 Last Admin: 10/14/17 13:47 Dose: 5 mg - Exam General: Reports: Alert, Oriented, Cooperative, No Acute Distress Neck: Reports: Supple Lungs: Reports: Clear to Auscultation, Normal Respiratory Effort Cardiovascular: Reports: Regular Rate, Irregular Rhythm GI/Abdominal Exam: Normal Bowel Sounds, Soft, Non-Tender, No Organomegaly, No Distention, No Abnormal Bruit, No Mass, Pelvis Stable Extremities: Normal Inspection, Normal Range of Motion, Non-Tender, No Pedal Edema, Normal Capillary Refill Wound/Incisions: Reports: Healing Well Neurological: Reports: No New Focal Deficit Psy/Mental Status: Reports: Alert, Normal Affect, Normal Mood
[2017-10-16] MEDS ORDERED: Metoprolol Tartrate 50 MG Tab PO SCH (12:00)
[2017-10-16] MEDS: Warfarin 5 MG Tab PO SCH (13:41)
[2017-10-16 15:42] VITALS: BP 120/64
--- NOTE | 2017-10-16 18:27 | ECHO ---
The echocardiogram report can be seen in this patient's EMR (electronic medical record) in the Reports section. The echocardiogram report has also been scanned into PACS and can be seen there. LLOYD
== END 2017-10-16 16:15 | disposition home or self-care (01) ==
LOC: MW.ED 11:43 → MW.MS 14:41
PROVIDERS: ADMIT Internal Medicine; ATTEND Internal Medicine
DX: I48.91 Unspecified atrial fibrillation (principal); R42 Dizziness and giddiness; I10 Essential (primary) hypertension; I25.10 Atherosclerotic heart disease of native coronary artery without angina pectoris; E11.9 Type 2 diabetes mellitus without complications; E78.5 Hyperlipidemia, unspecified; E66.9 Obesity, unspecified; Z68.30 Body mass index [BMI] 30.0-30.9, adult; Z90.49 Acquired absence of other specified parts of digestive tract; Z79.899 Other long term (current) drug therapy; Z79.4 Long term (current) use of insulin; Z79.02 Long term (current) use of antithrombotics/antiplatelets; Z79.01 Long term (current) use of anticoagulants
CPT/HCPCS: 36415; 71045; 80048; 80053; 80061; 82962; 83036; 83735; 83880; 84484; 85025; 85027; 85610; 93005; 93306; 96361; 96374; 97161; 99285; A9270; J1650; J1815; J3475; J3490; J7040; 99284

== ENCOUNTER 2018-09-20 12:08 | Emergency (ER) | payer MEDICARE, BC ==
--- NOTE | 2018-09-20 12:29 | EDM.PDOC ---
ED HPI GENERAL MEDICAL PROBLEM - General Chief Complaint: Lower Extremity Injury/Pain Stated Complaint: foot injury Time Seen by Provider: 09/20/18 12:30 Source of Information: Reports: Patient History Limitations: Reports: No Limitations - History of Present Illness INITIAL COMMENTS - FREE TEXT/NARRATIVE: HISTORY AND PHYSICAL: History of present illness: Patient is an 83-year-old male who presents to the emergency room with his complaint of left foot and left knee pain. He states he has a sensation he is having a gout flareup, has a history of gout. Pain is primarily at the right great toe and right lateral malleolus. Denies any injury, trauma or falls. He states he is now having mild pain in the left knee, although he has never had gout at this location. Patient denies any fever, chills, headache, change in vision, syncope or near syncope. Denies any chest pain, back pain, shortness of breath or cough. Denies any abdominal pain, nausea, vomiting, diarrhea, constipation or dysuria. Has not noted any blood in urine or stool. Patient has been eating and drinking appropriately. Review of systems: As per history of present illness and below otherwise all systems reviewed and negative. Past medical history: As per history of present illness and as reviewed below otherwise noncontributory. Surgical history: As per history of present illness and as reviewed below otherwise noncontributory. Social history: See social history for further information Family history: As per history of present illness and as reviewed below otherwise noncontributory. Physical exam: General: Well-developed and well-nourished 83-year-old male. Alert and oriented. Nontoxic. I did go acute distress. HEENT: Atraumatic, normocephalic, pupils equal and reactive bilaterally, negative for conjunctival pallor or scleral icterus, mucous membranes moist, TMs normal bilaterally, throat clear, neck supple, nontender, trachea midline. No drooling or trismus noted. No meningeal signs. No hot potato voice noted. Lungs: Clear to auscultation, breath sounds equal bilaterally, chest nontender. Heart: S1S2, regular rate and rhythm without overt murmur Abdomen: Soft, nondistended, nontender. Negative for masses or hepatosplenomegaly. Negative for costovertebral tenderness. Pelvis: Stable nontender. Genitourinary: Deferred. Rectal: Deferred. Skin: Erythema noted at the base of the right great toe and lateral malleolus. Otherwise skin is intact, warm, dry. No lesions or rashes noted. Extremities: Atraumatic, moves all extremities per self with difficulty or deficits, negative for cords or calf pain. Neurovascular unremarkable. Neuro: Awake, alert, oriented. Cranial nerves II through XII unremarkable. Cerebellum unremarkable. Motor and sensory unremarkable throughout. Exam nonfocal. Notes: X-ray of the knee shows no acute osseous abnormality, dislocation or fractures. Foot x-ray shows no acute osseous abnormality. There is a articular erosion at the first MTP joint with soft tissue swelling, correlate clinically for gout. Supportive care measures were reviewed and discussed. Voices understanding and is agreeable to plan of care. Denies any further questions or concerns at this time. Diagnostics: CBC, Uric acid, x-ray left foot, x-ray left knee Therapeutics: None Prescription: Colchicine and prednisone Impression: Gout Plan: 1. Please take the medications as directed. 2. Follow-up with your primary care provider as we discussed. Return to the ED as needed and as discussed. Definitive disposition and diagnosis as appropriate pending reevaluation and review of above. Left knee and left foot Pain Score (Numeric/FACES): 10 - Related Data Allergies Allergy/AdvReac Type Severity Reaction Status Date / Time No Known Allergies Allergy Verified 09/20/18 12:46 Home Meds: Home Meds Enalapril Maleate 10 mg PO DAILY 11/16/13 [History] Insuln Asp Prot/Insulin Aspart [NovoLOG Mix 70-30] 24 unit SQ QAM 11/16/13 [ History] metFORMIN HCl [Metformin HCl] 1,000 mg PO BID 11/16/13 [History] Clopidogrel Bisulfate [Plavix] 75 mg PO DAILY 03/12/16 [History] Insuln Asp Prot/Insulin Aspart [NovoLOG Mix 70-30] 15 unit SQ QPM 03/12/16 [ History] Isosorbide Mononitrate [Isosorbide Mononitrate ER] 15 mg PO DAILY 03/16/16 [ History] Glimepiride 1 mg PO WITHBREAKFAST 10/13/17 [History] hydroCHLOROthiazide [Hydrochlorothiazide] 12.5 mg PO DAILY 10/13/17 [History] Metoprolol Tartrate [Lopressor] 75 mg PO TID #135 tab 10/16/17 [Rx] Warfarin [Coumadin] 5 mg PO DAILY@1400 #10 tablet 10/16/17 [Rx] Past Medical History HEENT History: Reports: None Cardiovascular History: Reports: CAD, High Cholesterol, Hypertension, Other ( See Below) Other Cardiovascular History: 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" Respiratory History: Reports: None Gastrointestinal History: Reports: Hiatal Hernia Genitourinary History: Reports: None Musculoskeletal History: Reports: Back Pain, Chronic, Fracture, Gout Other Musculoskeletal History: hx of hand and foot fx Neurological History: Reports: Concussion, Head Trauma, Vertigo Other Neuro History: possible concussion yrs ago Psychiatric History: Reports: None Endocrine/Metabolic History: Reports: Diabetes, Type II, Obesity/BMI 30+ Hematologic History: Reports: Anticoagulation Therapy Immunologic History: Reports: None Oncologic (Cancer) History: Reports: None Dermatologic History: Reports: None - Infectious Disease History Infectious Disease History: Reports: Measles - Past Surgical History Head Surgeries/Procedures: Reports: None GI Surgical History: Reports: Cholecystectomy, Guy Fundoplication Male Surgical History: Reports: None Neurological Surgical History: Reports: None Musculoskeletal Surgical History: Reports: Carpal Tunnel Social & Family History - Family History Family Medical History: Noncontributory - Caffeine Use Caffeine Use: Reports: Coffee Review of Systems - Review of Systems Review Of Systems: ROS reveals no pertinent complaints other than HPI. ED EXAM, GENERAL - Physical Exam Exam: See Below (See dictation) Course - Vital Signs Last Recorded V/S: Last Vital Signs Temp 97.8 F 09/20/18 12:31 Pulse 84 09/20/18 12:31 Resp 16 09/20/18 12:31 BP 120/63 09/20/18 12:31 Pulse Ox 95 09/20/18 12:31 - Orders/Labs/Meds Labs: Laboratory Tests 09/20/18 09/20/18 Range/Units 12:40 12:40 WBC 9.08 (4.0-11.0) K/uL RBC 4.00 L (4.50-5.90) M/uL Hgb 11.9 L (13.0-17.0) g/dL Hct 34.8 L (38.0-50.0) % MCV 87.0 (80.0-98.0) fL MCH 29.8 (27.0-32.0) pg MCHC 34.2 (31.0-37.0) g/dL RDW Std Deviation 44.7 (28.0-62.0) fl RDW Coeff of Aneudy 14 (11.0-15.0) % Plt Count 218 (150-400) K/uL MPV 10.20 (7.40-12.00) fL Neut % (Auto) 68.3 (48.0-80.0) % Lymph % (Auto) 16.9 (16.0-40.0) % [place] % (Auto) 14.1 (0.0-15.0) % Eos % (Auto) 0.4 (0.0-7.0) % Baso % (Auto) 0.3 (0.0-1.5) % Neut # (Auto) 6.2 H (1.4-5.7) K/uL Lymph # (Auto) 1.5 (0.6-2.4) K/uL [place] # (Auto) 1.3 H (0.0-0.8) K/uL Eos # (Auto) 0.0 (0.0-0.7) K/uL Baso # (Auto) 0.0 (0.0-0.1) K/uL Nucleated RBC % 0.0 /100WBC Nucleated RBCs # 0 K/uL Uric Acid 9.4 H (2.6-7.2) mg/dL Departure - Departure Time of Disposition: 13:40 Disposition: Home, Self-Care 01 Clinical Impression: Gout Qualifiers: Gout site: foot Gout etiology: unspecified cause Chronicity: acute Laterality: left Qualified Code(s): M10.9 - Gout, unspecified - Discharge Information Instructions: Gout, [id number] Referrals: PCP,Unknown [Primary Care Provider] - Forms: ED Department Discharge Additional Instructions: The following information is given to patients seen in the emergency department who are being discharged to home. This information is to outline your options for follow-up care. We provide all patients seen in our emergency department with a follow-up referral. The need for follow-up, as well as the timing and circumstances, are variable depending upon the specifics of your emergency department visit. If you don't have a primary care physician on staff, we will provide you with a referral. We always advise you to contact your personal physician following an emergency department visit to inform them of the circumstance of the visit and for follow-up with them and/or the need for any referrals to a consulting specialist. The emergency department will also refer you to a specialist when appropriate. This referral assures that you have the opportunity for follow-up care with a specialist. All of these measure are taken in an effort to provide you with optimal care, which includes your follow-up. Under all circumstances we always encourage you to contact your private physician who remains a resource for coordinating your care. When calling for follow-up care, please make the office aware that this follow-up is from your recent emergency room visit. If for any reason you are refused follow-up, please contact the [facility] Emergency Department at and asked to speak to the emergency department charge nurse. [facility] [address] [place] [id number] [facility] [address] [place] [id number] 1. Xrays are normal. Labs show you have gout flare. Please take the medications as directed. 2. Follow-up with your primary care provider as we discussed. Return to the ED as needed and as discussed.
--- NOTE | 2018-09-20 13:35 | CR ---
EXAMINATION: Left knee HISTORY: Pain COMPARISON: None TECHNIQUE: 3 views FINDINGS/IMPRESSION: There is no acute osseous abnormality, dislocation, or fracture. Mild/moderate joint space narrowing is noted within the patellofemoral compartment with a small to moderate joint effusion. Chondrocalcinosis is also present.
--- NOTE | 2018-09-20 13:36 | CR ---
EXAMINATION: Left foot HISTORY: Pain COMPARISON: None TECHNIQUE: 2 views FINDINGS: There is no acute osseous abnormality, dislocation, or fracture. Bone mineralization is normal. There is a small periarticular erosion noted at the distal aspect of the first metatarsal medially with mild overlying soft tissue swelling. Otherwise mild degenerative changes noted within the left foot. Vascular calcifications are noted. IMPRESSION: 1. No acute osseous abnormality. 2. Periarticular erosion at the first MTP joint with adjacent soft tissue swelling, correlate clinically for gout.
[2018-09-20 14:08] VITALS: BP 142/61
== END 2018-09-20 14:07 | disposition home or self-care (01) ==
LOC: MW.ED 12:08
DX: M10.9 Gout, unspecified (principal); I10 Essential (primary) hypertension; E78.00 Pure hypercholesterolemia, unspecified; I25.10 Atherosclerotic heart disease of native coronary artery without angina pectoris; E11.9 Type 2 diabetes mellitus without complications; Z79.4 Long term (current) use of insulin; Z79.899 Other long term (current) drug therapy; Z79.01 Long term (current) use of anticoagulants
CPT/HCPCS: 36415; 73562-26-LT; 73562-LT; 73620-26-LT; 73620-LT; 84550; 85025; 99283; 99283-25

== ENCOUNTER 2018-10-08 16:33 | Emergency (ER) | payer MEDICARE, BC ==
--- NOTE | 2018-10-08 16:37 | EDM.PDOC ---
ED HPI GENERAL MEDICAL PROBLEM - General Chief Complaint: Trauma Stated Complaint: UNK Time Seen by Provider: 10/08/18 16:34 - History of Present Illness INITIAL COMMENTS - FREE TEXT/NARRATIVE: HISTORY AND PHYSICAL: History of present illness: Patient's an 83-year-old white male who presents status post fall which he sustained a laceration to his left scalp this occurred when he fell backwards after picking up [place] continues on a tract was no loss consciousness no neck pain no other tremor concern he states he is on anticoagulants. Review of systems: As per history of present illness and below otherwise all systems reviewed and negative. Past medical history: As per history of present illness and as reviewed below otherwise noncontributory. Surgical history: As per history of present illness and as reviewed below otherwise noncontributory. Social history: No reported history of drug or alcohol abuse. Family history: As per history of present illness and as reviewed below otherwise noncontributory. Physical exam: HEENT: Patient has approximately an 8 cm moderate depth laceration of his left parietal scalp there is good hemostasis no step-off no depression, normocephalic , pupils reactive, negative for conjunctival pallor or scleral icterus, mucous membranes moist, throat clear, neck supple, nontender, trachea midline. Lungs: Clear to auscultation, breath sounds equal bilaterally, chest nontender. Heart: S1S2, regular, negative for clicks, rubs, or JVD. Abdomen: Soft, nondistended, nontender. Negative for masses or hepatosplenomegaly. Negative for costovertebral tenderness. Pelvis: Stable nontender. Genitourinary: Deferred. Rectal: Deferred. Extremities: Atraumatic, negative for cords or calf pain. Neurovascular unremarkable. Neuro: Awake, alert, oriented. Cranial nerves II through XII unremarkable. Cerebellum unremarkable. Motor and sensory unremarkable throughout. Exam nonfocal. Diagnostics: CT brain Therapeutics: Wound was irrigated with FAHAD month 0.9 normal saline closed with stainless steel ariel bacitracin was applied Impression: #1 head injury with scalp laceration #2 observation status post fall Definitive disposition and diagnosis as appropriate pending reevaluation and review of above. head Pain Score (Numeric/FACES): 5 - Related Data Allergies Allergy/AdvReac Type Severity Reaction Status Date / Time No Known Allergies Allergy Verified 09/20/18 12:46 Home Meds: Home Meds Enalapril Maleate 10 mg PO DAILY 11/16/13 [History] Insuln Asp Prot/Insulin Aspart [NovoLOG Mix 70-30] 28 unit SQ QAM 11/16/13 [ History] metFORMIN HCl [Metformin HCl] 1,000 mg PO BID 11/16/13 [History] Clopidogrel Bisulfate [Plavix] 75 mg PO DAILY 03/12/16 [History] Insuln Asp Prot/Insulin Aspart [NovoLOG Mix 70-30] 18 unit SQ QPM 03/12/16 [ History] Isosorbide Mononitrate [Isosorbide Mononitrate ER] 15 mg PO DAILY 03/16/16 [ History] Glimepiride 1 mg PO WITHBREAKFAST 10/13/17 [History] Metoprolol Tartrate [Lopressor] 75 mg PO TID #135 tab 10/16/17 [Rx] Acetaminophen [Tylenol Extra Strength] 500 mg PO Q6H PRN 09/20/18 [History] Furosemide 40 mg PO DAILY 09/20/18 [History] Warfarin [Coumadin] 7.5 mg PO DAILY@1400 09/20/18 [History] atorvaSTATin [Lipitor] 20 mg PO BEDTIME 09/20/18 [History] traMADol [Ultram] 50 mg PO Q6H PRN 09/20/18 [History] Past Medical History HEENT History: Reports: None Cardiovascular History: Reports: CAD, High Cholesterol, Hypertension, Other ( See Below) Other Cardiovascular History: 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" Respiratory History: Reports: None Gastrointestinal History: Reports: Hiatal Hernia Genitourinary History: Reports: None Musculoskeletal History: Reports: Back Pain, Chronic, Fracture, Gout Other Musculoskeletal History: hx of hand and foot fx Neurological History: Reports: Concussion, Head Trauma, Vertigo Other Neuro History: possible concussion yrs ago Psychiatric History: Reports: None Endocrine/Metabolic History: Reports: Diabetes, Type II, Obesity/BMI 30+ Hematologic History: Reports: Anticoagulation Therapy Immunologic History: Reports: None Oncologic (Cancer) History: Reports: None Dermatologic History: Reports: None - Infectious Disease History Infectious Disease History: Reports: Measles - Past Surgical History Head Surgeries/Procedures: Reports: None GI Surgical History: Reports: Cholecystectomy, Guy Fundoplication Male Surgical History: Reports: None Neurological Surgical History: Reports: None Musculoskeletal Surgical History: Reports: Carpal Tunnel Social & Family History - Family History Family Medical History: Noncontributory - Caffeine Use Caffeine Use: Reports: Coffee Review of Systems - Review of Systems Review Of Systems: ROS reveals no pertinent complaints other than HPI. ED EXAM, GENERAL - Physical Exam Exam: See Below (See dictation) Course - Vital Signs Last Recorded V/S: Last Vital Signs Temp 36.9 C 10/08/18 16:45 Pulse 71 10/08/18 16:45 Resp 16 10/08/18 16:45 BP 121/51 L 10/08/18 16:45 Pulse Ox 95 10/08/18 16:45 - Orders/Labs/Meds Orders: Active Orders 24 hr Category Date Time Status Admission Status [Patient Status] [ADT] Stat ADT 10/08/18 17:24 Active Departure - Departure Time of Disposition: 16:36 Disposition: Home, Self-Care 01 Condition: Good Clinical Impression: Head injury, Scalp laceration - Discharge Information Forms: ED Department Discharge Additional Instructions: The following information is given to patients seen in the emergency department who are being discharged to home. This information is to outline your options for follow-up care. We provide all patients seen in our emergency department with a follow-up referral. The need for follow-up, as well as the timing and circumstances, are variable depending upon the specifics of your emergency department visit. If you don't have a primary care physician on staff, we will provide you with a referral. We always advise you to contact your personal physician following an emergency department visit to inform them of the circumstance of the visit and for follow-up with them and/or the need for any referrals to a consulting specialist. The emergency department will also refer you to a specialist when appropriate. This referral assures that you have the opportunity for followup care with a specialist. All of these measure are taken in an effort to provide you with optimal care, which includes your followup. Under all circumstances we always encourage you to contact your private physician who remains a resource for coordinating your care. When calling for followup care, please make the office aware that this follow-up is from your recent emergency room visit. If for any reason you are refused follow-up, please contact the [facility] emergency department at and asked to speak to the emergency department charge nurse. Staple removal 10-14 days follow-up primary medical doctor as needed as discussed return as needed as discussed head injury instructions as discussed - My Orders Last 24 Hours: My Active Orders 10/08/18 17:24 Admission Status [Patient Status] [ADT] Stat - Assessment/Plan Last 24 Hours: My Active Orders 10/08/18 17:24 Admission Status [Patient Status] [ADT] Stat
[2018-10-08 16:47] VITALS: BP 121/51
--- NOTE | 2018-10-08 17:25 | CT ---
INDICATION: Trauma. TECHNIQUE: Noncontrast CT images were acquired through the brain. COMPARISON: None. FINDINGS: Prominence of the ventricles and sulci compatible with mild diffuse cerebral volume loss. No mass effect or midline shift. The monson-white differentiation is maintained. No acute intracranial hemorrhage or pathologic extra-axial fluid collection. Atherosclerotic calcifications in the intracranial internal carotid arteries. Soft tissue stranding left occipital region. Laceration of the high left parietal scalp. The calvarium is intact. The globes are symmetric in size. Small retention cyst or polyp in the right sphenoid sinus. The mastoid air cells are clear. IMPRESSION: 1. No acute intracranial hemorrhage or mass effect. 2. Laceration of the high left parietal scalp. Soft tissue swelling in the left occipital region. No calvarial fracture. 3. Mild diffuse cerebral volume loss. Please note that all CT scans at this facility use dose modulation, iterative reconstruction, and/or weight-based dosing when appropriate to reduce radiation dose to as low as reasonably achievable. Dictated by Babak Delvalle MD @ Oct 08 2018 5:18PM Signed by Dr. Babak Delvalle @ Oct 08 2018 5:22PM
== END 2018-10-08 18:00 | disposition home or self-care (01) ==
LOC: MW.ED 16:33
DX: S01.01XA Laceration without foreign body of scalp, initial encounter (principal); E11.9 Type 2 diabetes mellitus without complications; I10 Essential (primary) hypertension; E78.00 Pure hypercholesterolemia, unspecified; I25.10 Atherosclerotic heart disease of native coronary artery without angina pectoris; Z79.4 Long term (current) use of insulin; Z79.899 Other long term (current) drug therapy; Z79.01 Long term (current) use of anticoagulants; W19.XXXA Unspecified fall, initial encounter
CPT/HCPCS: 12004; 70450; 70450-26; 99283-25; 99284

== ENCOUNTER 2018-10-21 15:33 | Emergency (ER) | payer MEDICARE, BC ==
[2018-10-21 15:44] VITALS: BP 154/71
== END 2018-10-21 15:42 | disposition left against medical advice (07) ==
LOC: MW.ED 15:33
DX: Z53.21 Procedure and treatment not carried out due to patient leaving prior to being seen by health care provider (principal)

== ENCOUNTER 2019-05-18 11:43 | Observation (INO) | payer MEDICARE, BC ==
[2019-05-18] MEDS ORDERED: Sodium Chloride 0.9% 1,000 ML IV ONE (11:47)
[2019-05-18] MEDS ORDERED: Glucagon,Human Recombinant 1 MG Vial IVPUSH ONE ×2 (11:49→11:51)
--- NOTE | 2019-05-18 12:03 | EDM.PDOC ---
ED HPI GENERAL MEDICAL PROBLEM - General Chief Complaint: Syncope Stated Complaint: RAPID RESPONSE FROM CLINIC Time Seen by Provider: 05/18/19 11:47 - History of Present Illness INITIAL COMMENTS - FREE TEXT/NARRATIVE: HISTORY AND PHYSICAL: History of present illness: Patient's an 84-year-old white male with history of atrial fibrillation who presents after syncopal episode in his private medical doctor's office blood sugar was 1:30 this was brief without associated seizure activity although he did have incontinence of bladder on arrival here he somewhat somnolent but is awake does know his name and place and time he has no focal deficits there was no associated trauma he denies chest pain prior to or since. There is no shortness of breath or other complaints Review of systems: As per history of present illness and below otherwise all systems reviewed and negative. Past medical history: As per history of present illness and as reviewed below otherwise noncontributory. Surgical history: As per history of present illness and as reviewed below otherwise noncontributory. Social history: No reported history of drug or alcohol abuse. Family history: As per history of present illness and as reviewed below otherwise noncontributory. Physical exam: HEENT: Atraumatic, normocephalic, pupils reactive, negative for conjunctival pallor or scleral icterus, mucous membranes moist, throat clear, neck supple, nontender, trachea midline. Lungs: Clear to auscultation, breath sounds equal bilaterally, chest nontender. Heart: S1S2, regular, bradycardic with a rate of 45 negative for clicks, rubs, or JVD. Abdomen: Soft, nondistended, nontender. Negative for masses or hepatosplenomegaly. Negative for costovertebral tenderness. Pelvis: Stable nontender. Genitourinary: Deferred. Rectal: Deferred. Extremities: Atraumatic, negative for cords or calf pain. Neurovascular unremarkable. Neuro: Awake, alert, oriented. Cranial nerves II through XII unremarkable. Cerebellum unremarkable. Motor and sensory unremarkable throughout. Exam nonfocal. Diagnostics: CBC CMP troponin PT/INR chest x-ray EKG prolactin level CT brain Therapeutics: IV O2 monitor glucagon 3 mg IV Impression: #1 syncope #2 sinus bradycardia Definitive disposition and diagnosis as appropriate pending reevaluation and review of above. - Related Data Allergies Allergy/AdvReac Type Severity Reaction Status Date / Time No Known Allergies Allergy Verified 05/18/19 11:47 Home Meds: Home Meds Enalapril Maleate 10 mg PO DAILY 11/16/13 [History] Insuln Asp Prot/Insulin Aspart [NovoLOG Mix 70-30] 28 unit SQ QAM 11/16/13 [ History] metFORMIN HCl [Metformin HCl] 1,000 mg PO BID 11/16/13 [History] Clopidogrel Bisulfate [Plavix] 75 mg PO DAILY 03/12/16 [History] Insuln Asp Prot/Insulin Aspart [NovoLOG Mix 70-30] 18 unit SQ QPM 03/12/16 [ History] Isosorbide Mononitrate [Isosorbide Mononitrate ER] 15 mg PO DAILY 03/16/16 [ History] Glimepiride 1 mg PO WITHBREAKFAST 10/13/17 [History] Metoprolol Tartrate [Lopressor] 75 mg PO TID #135 tab 10/16/17 [Rx] Acetaminophen [Tylenol Extra Strength] 500 mg PO Q6H PRN 09/20/18 [History] Furosemide 40 mg PO DAILY 09/20/18 [History] Warfarin [Coumadin] 7.5 mg PO DAILY@1400 09/20/18 [History] atorvaSTATin [Lipitor] 20 mg PO BEDTIME 09/20/18 [History] traMADol [Ultram] 50 mg PO Q6H PRN 09/20/18 [History] Past Medical History HEENT History: Reports: None Cardiovascular History: Reports: CAD, High Cholesterol, Hypertension, Other ( See Below) Other Cardiovascular History: 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" Respiratory History: Reports: None Gastrointestinal History: Reports: Hiatal Hernia Genitourinary History: Reports: None Musculoskeletal History: Reports: Back Pain, Chronic, Fracture, Gout Other Musculoskeletal History: hx of hand and foot fx Neurological History: Reports: Concussion, Head Trauma, Vertigo Other Neuro History: possible concussion yrs ago Psychiatric History: Reports: None Endocrine/Metabolic History: Reports: Diabetes, Type II, Obesity/BMI 30+ Hematologic History: Reports: Anticoagulation Therapy Immunologic History: Reports: None Oncologic (Cancer) History: Reports: None Dermatologic History: Reports: None - Infectious Disease History Infectious Disease History: Reports: Measles - Past Surgical History Head Surgeries/Procedures: Reports: None GI Surgical History: Reports: Cholecystectomy, Guy Fundoplication Male Surgical History: Reports: None Neurological Surgical History: Reports: None Musculoskeletal Surgical History: Reports: Carpal Tunnel Social & Family History - Family History Family Medical History: Noncontributory - Tobacco Use Smoking Status *Q: Never Smoker - Caffeine Use Caffeine Use: Reports: Coffee - Recreational Drug Use Recreational Drug Use: No ED ROS GENERAL - Review of Systems Review Of Systems: Comprehensive ROS is negative, except as noted in HPI. ED EXAM, GENERAL - Physical Exam Exam: See Below (See dictation) Course - Vital Signs Last Recorded V/S: Last Vital Signs Temp 34.7 C L 05/18/19 11:44 Pulse 44 L 05/18/19 13:28 Resp 16 05/18/19 13:28 BP 118/56 L 05/18/19 13:28 Pulse Ox 96 05/18/19 13:28 - Orders/Labs/Meds Orders: Active Orders 24 hr Category Date Time Status EKG Documentation Completion [RC] STAT Care 05/18/19 11:47 Active Glucose [Blood Glucose Check, Bedside] [RC] ONETIME Care 05/18/19 11:48 Active CULTURE BLOOD [BC] Stat Lab 05/18/19 11:40 Received CULTURE BLOOD [BC] Stat Lab 05/18/19 11:46 Received UA RFX GILMER AND CULT IF INDIC [URIN] Stat Lab 05/18/19 11:47 Ordered Blood Culture x2 Reflex Set [OM.PC] Stat Oth 05/18/19 11:50 Ordered Labs: Laboratory Tests 05/18/19 05/18/19 05/18/19 Range/Units 11:40 11:40 11:40 WBC 10.87 (4.0-11.0) K/uL RBC 4.54 (4.50-5.90) M/uL Hgb 13.0 (13.0-17.0) g/dL Hct 38.9 (38.0-50.0) % MCV 85.7 (80.0-98.0) fL MCH 28.6 (27.0-32.0) pg MCHC 33.4 (31.0-37.0) g/dL RDW Std Deviation 48.4 (28.0-62.0) fl RDW Coeff of Aneudy 16 H (11.0-15.0) % Plt Count 240 (150-400) K/uL MPV 10.70 (7.40-12.00) fL Neut % (Auto) 54.3 (48.0-80.0) % Lymph % (Auto) 32.7 (16.0-40.0) % Callaway % (Auto) 10.9 (0.0-15.0) % Eos % (Auto) 1.5 (0.0-7.0) % Baso % (Auto) 0.6 (0.0-1.5) % Neut # (Auto) 5.9 H (1.4-5.7) K/uL Lymph # (Auto) 3.6 H (0.6-2.4) K/uL Callaway # (Auto) 1.2 H (0.0-0.8) K/uL Eos # (Auto) 0.2 (0.0-0.7) K/uL Baso # (Auto) 0.1 (0.0-0.1) K/uL Nucleated RBC % 0.0 /100WBC Nucleated RBCs # 0 K/uL INR 2.05 Lactate (0.20-2.00) mmol/L Sodium 138 (136-148) mmol/L Potassium 4.1 (3.5-5.1) mmol/L Chloride 103 (98-107) mmol/L Carbon Dioxide 26.7 (21.0-32.0) mmol/L BUN 22 H (7.0-18.0) mg/dL Creatinine 1.3 (0.8-1.3) mg/dL Est Cr Clr Drug Dosing 43.68 mL/min Estimated GFR (MDRD) 52.6 ml/min Glucose 146 H (74-106) mg/dL Calcium 9.0 (8.5-10.1) mg/dL Total Bilirubin 0.6 (0.2-1.0) mg/dL AST 16 (15-37) IU/L ALT 17 (14-63) IU/L Alkaline Phosphatase 93 (46-116) U/L Troponin I < 0.050 (0.000-0.056) ng/mL Total Protein 7.7 (6.4-8.2) g/dL Albumin 3.4 (3.4-5.0) g/dL Globulin 4.3 H (2.6-4.0) g/dL Albumin/Globulin Ratio 0.8 L (0.9-1.6) Lipase 123 (73-393) U/L Prolactin 32.6 ng/mL 05/18/19 Range/Units 11:40 WBC (4.0-11.0) K/uL RBC (4.50-5.90) M/uL Hgb (13.0-17.0) g/dL Hct (38.0-50.0) % MCV (80.0-98.0) fL MCH (27.0-32.0) pg MCHC (31.0-37.0) g/dL RDW Std Deviation (28.0-62.0) fl RDW Coeff of Aneudy (11.0-15.0) % Plt Count (150-400) K/uL MPV (7.40-12.00) fL Neut % (Auto) (48.0-80.0) % Lymph % (Auto) (16.0-40.0) % Callaway % (Auto) (0.0-15.0) % Eos % (Auto) (0.0-7.0) % Baso % (Auto) (0.0-1.5) % Neut # (Auto) (1.4-5.7) K/uL Lymph # (Auto) (0.6-2.4) K/uL Callaway # (Auto) (0.0-0.8) K/uL Eos # (Auto) (0.0-0.7) K/uL Baso # (Auto) (0.0-0.1) K/uL Nucleated RBC % /100WBC Nucleated RBCs # K/uL INR Lactate 1.6 (0.20-2.00) mmol/L Sodium (136-148) mmol/L Potassium (3.5-5.1) mmol/L Chloride (98-107) mmol/L Carbon Dioxide (21.0-32.0) mmol/L BUN (7.0-18.0) mg/dL Creatinine (0.8-1.3) mg/dL Est Cr Clr Drug Dosing mL/min Estimated GFR (MDRD) ml/min Glucose (74-106) mg/dL Calcium (8.5-10.1) mg/dL Total Bilirubin (0.2-1.0) mg/dL AST (15-37) IU/L ALT (14-63) IU/L Alkaline Phosphatase (46-116) U/L Troponin I (0.000-0.056) ng/mL Total Protein (6.4-8.2) g/dL Albumin (3.4-5.0) g/dL Globulin (2.6-4.0) g/dL Albumin/Globulin Ratio (0.9-1.6) Lipase (73-393) U/L Prolactin ng/mL Meds: Medications Discontinued Medications Generic Name Dose Route Start Last Admin Trade Name Gui PRN Reason Stop Dose Admin Glucagon 1 mg 05/18/19 11:49 05/18/19 11:54 Glucagen IVPUSH 05/18/19 11:50 Not Given ONETIME ONE Glucagon 3 mg 05/18/19 11:51 05/18/19 11:55 Glucagen IVPUSH 05/18/19 11:52 3 mg ONETIME ONE Administration Sodium Chloride 1,000 mls @ 999 mls/hr 05/18/19 11:47 05/18/19 11:54 Normal Saline IV 05/18/19 12:47 999 mls/hr BOLUS ONE Administration Ondansetron HCl 4 mg 05/18/19 12:08 05/18/19 12:11 Zofran IVPUSH 05/18/19 12:09 4 mg ONETIME ONE Administration Ondansetron HCl Confirm 05/18/19 12:08 05/18/19 12:13 Zofran Administered 05/18/19 12:09 Not Given Dose 4 mg .ROUTE .STK-MED ONE Departure - Departure Time of Disposition: 13:38 Disposition: Refer to Observation Condition: Good Clinical Impression: Sinus bradycardia Syncope Qualifiers: Syncope type: vasovagal syncope Qualified Code(s): R55 - Syncope and collapse - Discharge Information Referrals: Sy Mata MD [Primary Care Provider] - Forms: ED Department Discharge
[2019-05-18] MEDS ORDERED: Ondansetron 4 MG/2 ML SDV ONE (12:08)
[2019-05-18] MEDS ORDERED: Ondansetron 4 MG/2 ML SDV IVPUSH ONE (12:08)
[2019-05-18 12:19] LABS: BLOOD UREA NITROGEN,BUN 22 mg/dL (7.0-18.0); CARBON DIOXIDE,CO2 26.7 mmol/L (21.0-32.0); CHLORIDE,CL 103 mmol/L (98-107); GLUCOSE RANDOM 146 mg/dL (74-106); LIPASE 123 U/L (73-393); POTASSIUM,K 4.1 mmol/L (3.5-5.1); SODIUM,NA 138 mmol/L (136-148)
--- NOTE | 2019-05-18 13:05 | CR ---
EXAM DATE: 05/18/19 PATIENT'S AGE: 84 Chest: Portable view of the chest was obtained. Comparison: Prior chest x-ray of 10/13/17. Heart size is normal. Tortuous thoracic aorta is seen. Lungs are clear with no acute parenchymal change. Bony structures are grossly intact. Impression: 1. Nothing acute is appreciated on portable chest x-ray. Diagnostic code #1 This report was dictated in [place] Standard Time Report Signed by Proxy. LLOYD
--- NOTE | 2019-05-18 13:20 | CT ---
EXAM DATE: 05/18/19 PATIENT'S AGE: [address] Technique: Multiple axial sections through the brain were obtained. Intravenous contrast was not utilized. Comparison: Prior head CT study of 10/08/18. Findings: Ventricles along with basal cisterns and sulci over the convexities are mildly prominent. No abnormal parenchymal densities are seen. No evidence of intracranial hemorrhage. No midline shift or mass effect is seen. Bone window settings were reviewed. No acute calvarial abnormality is appreciated. Mastoid sinuses and visualized paranasal sinuses show nothing acute. There is a retention cyst within the right side of the sphenoid sinus measuring 1.7 cm which is chronic. Impression: 1. Mild senescent change. 2. 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 3. No acute intracranial abnormality is identified. Diagnostic code #2 This report was dictated in [place] Standard Time Report Signed by Proxy. [facility]
--- NOTE | 2019-05-18 14:10 | PCM.HP.2 ---
<Jovan To M - Last Filed: 05/18/19 15:59> H&P History of Present Illness - General Date of Service: 05/18/19 Source of Information: Patient History Limitations: Reports: No Limitations - History of Present Illness Initial Comments - Free Text/Narative: 84-year-old male presents to ER after "passing out" at his PCP's office earlier this morning. He has a PMH of atrial fibrillation, diabetes mellitus type II and HTN. Patient reports that he was sitting his PCP's examination room and he started sweating and then "passed out." The next thing he recalls is that he was on the floor. He denies any urinary incontinence and there was no reported seizure activity. Patient reports he was in his normal state of health this morning. He has not been sick recently and his appetite has been normal. Patient reports that he has felt a little "oozy" since passing out but denies any blurry vision, shortness of breath, chest pain, nausea, abdominal pain, diarrhea, blood in urine, blood in stool, dark stools, numbness or tingling in extremities. In the ER, CT head showed no acute abnormalities and CXR was negative. EKG showed sinus bradycardia with a HR ~ 40's. Glucose was 146. Troponin negative. Patient given glucagon 3 mg IV. Patient admitted for further evaluation. - Related Data Allergies/Adverse Reactions: Allergies Allergy/AdvReac Type Severity Reaction Status Date / Time No Known Allergies Allergy Verified 05/18/19 15:28 Home Medications: Home Meds Enalapril Maleate 10 mg PO DAILY 11/16/13 [History] Insuln Asp Prot/Insulin Aspart [NovoLOG Mix 70-30] 28 unit SQ QAM 11/16/13 [ History] metFORMIN HCl [Metformin HCl] 1,000 mg PO BID 11/16/13 [History] Clopidogrel Bisulfate [Plavix] 75 mg PO DAILY 03/12/16 [History] Insuln Asp Prot/Insulin Aspart [NovoLOG Mix 70-30] 18 unit SQ QPM 03/12/16 [ History] Isosorbide Mononitrate [Isosorbide Mononitrate ER] 15 mg PO DAILY 03/16/16 [ History] Acetaminophen [Tylenol Extra Strength] 500 mg PO Q6H PRN 09/20/18 [History] Furosemide 40 mg PO DAILY 09/20/18 [History] Warfarin [Coumadin] 7.5 mg PO DAILY@1400 09/20/18 [History] atorvaSTATin [Lipitor] 20 mg PO BEDTIME 09/20/18 [History] traMADol [Ultram] 50 mg PO Q6H PRN 09/20/18 [History] Metoprolol Tartrate 25 mg PO BID 30 Days #60 tablet 05/19/19 [Rx] Past Medical History HEENT History: Reports: None Cardiovascular History: Reports: CAD, High Cholesterol, Hypertension, Other ( See Below) Other Cardiovascular History: 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" Respiratory History: Reports: None Gastrointestinal History: Reports: Hiatal Hernia Genitourinary History: Reports: None Musculoskeletal History: Reports: Back Pain, Chronic, Fracture, Gout Other Musculoskeletal History: hx of hand and foot fx Neurological History: Reports: Concussion, Head Trauma, Vertigo Other Neuro History: possible concussion yrs ago Psychiatric History: Reports: None Endocrine/Metabolic History: Reports: Diabetes, Type II, Obesity/BMI 30+ Hematologic History: Reports: Anticoagulation Therapy Immunologic History: Reports: None Oncologic (Cancer) History: Reports: None Dermatologic History: Reports: None - Infectious Disease History Infectious Disease History: Reports: Measles - Past Surgical History Head Surgeries/Procedures: Reports: None GI Surgical History: Reports: Cholecystectomy, Guy Fundoplication Male Surgical History: Reports: None Neurological Surgical History: Reports: None Musculoskeletal Surgical History: Reports: Carpal Tunnel Social & Family History - Family History Family Medical History: Noncontributory - Tobacco Use Smoking Status *Q: Never Smoker - Caffeine Use Caffeine Use: Reports: Coffee - Recreational Drug Use Recreational Drug Use: No H&P Review of Systems - Review of Systems: Review Of Systems: Comprehensive ROS is negative, except as noted in HPI. Exam - Exam Exam: See Below - Vital Signs Vital Signs: Last Vital Signs Temp 94.5 F L 05/18/19 11:44 Pulse 44 L 05/18/19 13:28 Resp 16 05/18/19 13:28 BP 118/56 L 05/18/19 13:28 Pulse Ox 96 05/18/19 13:28 Weight: 102 kg - Exam General: Alert, Oriented, Cooperative HEENT: Conjunctiva Clear, EOMI, Mucosa Moist & [place], Posterior Pharynx Clear, Pupils Equal, Pupils Reactive Neck: Supple, Trachea Midline Lungs: Clear to Auscultation, Normal Respiratory Effort Cardiovascular: Regular Rhythm, Bradycardia GI/Abdominal Exam: Normal Bowel Sounds, Soft, Non-Tender, No Distention Extremities: Normal Inspection, No Pedal Edema Skin: Warm, Dry, Intact Neurological: Cranial Nerves Intact (No focal neuro deficits appreciated.) Neuro Extensive - Mental Status: Alert, Oriented x3, Normal Mood/Affect Psychiatric: Alert, Normal Affect, Normal Mood - Patient Data Lab Results Last 24 hrs: Laboratory Results - last 24 hr 05/18/19 05/18/19 05/18/19 Range/Units 11:40 11:40 11:40 WBC 10.87 (4.0-11.0) K/uL RBC 4.54 (4.50-5.90) M/uL Hgb 13.0 (13.0-17.0) g/dL Hct 38.9 (38.0-50.0) % MCV 85.7 (80.0-98.0) fL MCH 28.6 (27.0-32.0) pg MCHC 33.4 (31.0-37.0) g/dL RDW Std Deviation 48.4 (28.0-62.0) fl RDW Coeff of Aneudy 16 H (11.0-15.0) % Plt Count 240 (150-400) K/uL MPV 10.70 (7.40-12.00) fL Neut % (Auto) 54.3 (48.0-80.0) % Lymph % (Auto) 32.7 (16.0-40.0) % Bullock % (Auto) 10.9 (0.0-15.0) % Eos % (Auto) 1.5 (0.0-7.0) % Baso % (Auto) 0.6 (0.0-1.5) % Neut # (Auto) 5.9 H (1.4-5.7) K/uL Lymph # (Auto) 3.6 H (0.6-2.4) K/uL Bullock # (Auto) 1.2 H (0.0-0.8) K/uL Eos # (Auto) 0.2 (0.0-0.7) K/uL Baso # (Auto) 0.1 (0.0-0.1) K/uL Nucleated RBC % 0.0 /100WBC Nucleated RBCs # 0 K/uL INR 2.05 Lactate (0.20-2.00) mmol/L Sodium 138 (136-148) mmol/L Potassium 4.1 (3.5-5.1) mmol/L Chloride 103 (98-107) mmol/L Carbon Dioxide 26.7 (21.0-32.0) mmol/L BUN 22 H (7.0-18.0) mg/dL Creatinine 1.3 (0.8-1.3) mg/dL Est Cr Clr Drug Dosing 43.68 mL/min Estimated GFR (MDRD) 52.6 ml/min Glucose 146 H (74-106) mg/dL Calcium 9.0 (8.5-10.1) mg/dL Total Bilirubin 0.6 (0.2-1.0) mg/dL AST 16 (15-37) IU/L ALT 17 (14-63) IU/L Alkaline Phosphatase 93 (46-116) U/L Troponin I < 0.050 (0.000-0.056) ng/mL Total Protein 7.7 (6.4-8.2) g/dL Albumin 3.4 (3.4-5.0) g/dL Globulin 4.3 H (2.6-4.0) g/dL Albumin/Globulin Ratio 0.8 L (0.9-1.6) Lipase 123 (73-393) U/L Prolactin 32.6 ng/mL 05/18/19 Range/Units 11:40 WBC (4.0-11.0) K/uL RBC (4.50-5.90) M/uL Hgb (13.0-17.0) g/dL Hct (38.0-50.0) % MCV (80.0-98.0) fL MCH (27.0-32.0) pg MCHC (31.0-37.0) g/dL RDW Std Deviation (28.0-62.0) fl RDW Coeff of Aneudy (11.0-15.0) % Plt Count (150-400) K/uL MPV (7.40-12.00) fL Neut % (Auto) (48.0-80.0) % Lymph % (Auto) (16.0-40.0) % Bullock % (Auto) (0.0-15.0) % Eos % (Auto) (0.0-7.0) % Baso % (Auto) (0.0-1.5) % Neut # (Auto) (1.4-5.7) K/uL Lymph # (Auto) (0.6-2.4) K/uL Bullock # (Auto) (0.0-0.8) K/uL Eos # (Auto) (0.0-0.7) K/uL Baso # (Auto) (0.0-0.1) K/uL Nucleated RBC % /100WBC Nucleated RBCs # K/uL INR Lactate 1.6 (0.20-2.00) mmol/L Sodium (136-148) mmol/L Potassium (3.5-5.1) mmol/L Chloride (98-107) mmol/L Carbon Dioxide (21.0-32.0) mmol/L BUN (7.0-18.0) mg/dL Creatinine (0.8-1.3) mg/dL Est Cr Clr Drug Dosing mL/min Estimated GFR (MDRD) ml/min Glucose (74-106) mg/dL Calcium (8.5-10.1) mg/dL Total Bilirubin (0.2-1.0) mg/dL AST (15-37) IU/L ALT (14-63) IU/L Alkaline Phosphatase (46-116) U/L Troponin I (0.000-0.056) ng/mL Total Protein (6.4-8.2) g/dL Albumin (3.4-5.0) g/dL Globulin (2.6-4.0) g/dL Albumin/Globulin Ratio (0.9-1.6) Lipase (73-393) U/L Prolactin ng/mL Result Diagrams: 05/18/19 11:40 05/18/19 11:40 Problem List Initiated/Reviewed/Updated: Yes Orders Last 24hrs: Active Orders 24 hr Category Date Time Status EKG Documentation Completion [RC] STAT Care 05/18/19 11:47 Active Glucose [Blood Glucose Check, Bedside] [RC] ONETIME Care 05/18/19 11:48 Active CULTURE BLOOD [BC] Stat Lab 05/18/19 11:40 Received CULTURE BLOOD [BC] Stat Lab 05/18/19 11:46 Received UA RFX ISIAH AND CULT IF INDIC [URIN] Stat Lab 05/18/19 11:47 Ordered Blood Culture x2 Reflex Set [OM.PC] Stat Oth 05/18/19 11:50 Ordered Assessment/Plan Comment:: Assessment: 1. Syncopal episode in the setting of #2. 2. Bradycardia. 3. Hypomagnesemia. 4. History of atrial fibrillation, on warfarin therapy. 5. Diabetes mellitus type 2. 6. Past medical history of HTN. Plan: 1. For syncopal episode, will keep patient on telemetry. Will trend troponins q3h, order ECHO, TSH, magnesium level, phosphorus level and lipid panel. Will also hold metoprolol for now. 2. For hypomagnesemia, replete with 2 g IV magnesium sulfate. Will recheck in AM. 3. For diabetes mellitus type 2, SSI. 4. For PMH, continue home medications. <Jillian Bennett - Last Filed: 05/19/19 20:07> H&P History of Present Illness - General Admit Problem/Dx: Admission Diagnosis/Problem Admission Diagnosis/Problem Syncope Exam - Vital Signs Vital Signs: Last Vital Signs Temp 36.4 C 05/19/19 12:00 Pulse 56 L 05/19/19 12:00 Resp 18 05/19/19 12:00 BP 133/62 05/19/19 12:00 Pulse Ox 96 05/19/19 12:00 - Patient Data Lab Results Last 24 hrs: Laboratory Results - last 24 hr 05/18/19 05/19/19 05/19/19 Range/Units 20:34 05:14 05:14 WBC 7.64 (4.0-11.0) K/uL RBC 4.04 L (4.50-5.90) M/uL Hgb 11.5 L (13.0-17.0) g/dL Hct 34.8 L (38.0-50.0) % MCV 86.1 (80.0-98.0) fL MCH 28.5 (27.0-32.0) pg MCHC 33.0 (31.0-37.0) g/dL RDW Std Deviation 49.0 (28.0-62.0) fl RDW Coeff of Aneudy 16 H (11.0-15.0) % Plt Count 167 (150-400) K/uL MPV 10.90 (7.40-12.00) fL Neut % (Auto) 58.6 (48.0-80.0) % Lymph % (Auto) 30.1 (16.0-40.0) % Bullock % (Auto) 9.3 (0.0-15.0) % Eos % (Auto) 1.6 (0.0-7.0) % Baso % (Auto) 0.4 (0.0-1.5) % Neut # (Auto) 4.5 (1.4-5.7) K/uL Lymph # (Auto) 2.3 (0.6-2.4) K/uL Bullock # (Auto) 0.7 (0.0-0.8) K/uL Eos # (Auto) 0.1 (0.0-0.7) K/uL Baso # (Auto) 0.0 (0.0-0.1) K/uL Nucleated RBC % 0.0 /100WBC Nucleated RBCs # 0 K/uL INR Sodium 140 (136-148) mmol/L Potassium 4.2 (3.5-5.1) mmol/L Chloride 104 (98-107) mmol/L Carbon Dioxide 28.4 (21.0-32.0) mmol/L BUN 19 H (7.0-18.0) mg/dL Creatinine 1.2 (0.8-1.3) mg/dL Est Cr Clr Drug Dosing 47.31 mL/min Estimated GFR (MDRD) 57.7 ml/min Glucose 154 H (74-106) mg/dL POC Glucose (60-110) mg/dL Calcium 8.7 (8.5-10.1) mg/dL Magnesium 1.7 L (1.8-2.4) mg/dL Troponin I < 0.050 (0.000-0.056) ng/mL 05/19/19 05/19/19 05/19/19 Range/Units 05:14 06:13 11:31 WBC (4.0-11.0) K/uL RBC (4.50-5.90) M/uL Hgb (13.0-17.0) g/dL Hct (38.0-50.0) % MCV (80.0-98.0) fL MCH (27.0-32.0) pg MCHC (31.0-37.0) g/dL RDW Std Deviation (28.0-62.0) fl RDW Coeff of Aneudy (11.0-15.0) % Plt Count (150-400) K/uL MPV (7.40-12.00) fL Neut % (Auto) (48.0-80.0) % Lymph % (Auto) (16.0-40.0) % Bullock % (Auto) (0.0-15.0) % Eos % (Auto) (0.0-7.0) % Baso % (Auto) (0.0-1.5) % Neut # (Auto) (1.4-5.7) K/uL Lymph # (Auto) (0.6-2.4) K/uL Bullock # (Auto) (0.0-0.8) K/uL Eos # (Auto) (0.0-0.7) K/uL Baso # (Auto) (0.0-0.1) K/uL Nucleated RBC % /100WBC Nucleated RBCs # K/uL INR 2.17 Sodium (136-148) mmol/L Potassium (3.5-5.1) mmol/L Chloride (98-107) mmol/L Carbon Dioxide (21.0-32.0) mmol/L BUN (7.0-18.0) mg/dL Creatinine (0.8-1.3) mg/dL Est Cr Clr Drug Dosing mL/min Estimated GFR (MDRD) ml/min Glucose (74-106) mg/dL POC Glucose 148 H 282 H (60-110) mg/dL Calcium (8.5-10.1) mg/dL Magnesium (1.8-2.4) mg/dL Troponin I (0.000-0.056) ng/mL Result Diagrams: 05/19/19 05:14 05/19/19 05:14 Isiah Results Last 24 hrs: Microbiology 05/18/19 11:46 Aerobic Blood Culture - Preliminary Blood - Venous - Lab Draw NO GROWTH AFTER 1 DAY Anaerobic Blood Culture - Preliminary NO GROWTH AFTER 1 DAY 05/18/19 11:40 Aerobic Blood Culture - Preliminary Blood - Venous NO GROWTH AFTER 1 DAY Anaerobic Blood Culture - Preliminary NO GROWTH AFTER 1 DAY Orders Last 24hrs: Active Orders 24 hr Category Date Time Status Ready for Discharge [RC] PER UNIT ROUTINE Care 05/19/19 12:34 Active Echo Comp wo Cont [US] Urgent Exams 05/19/19 Taken Assessment/Plan Comment:: I performed a history and physical exam of the patient and discussed management with resident. I have reviewed the residents note and agree with documented findings and plan unless otherwise specified in my note.
[2019-05-18] MEDS ORDERED: Ondansetron 4 MG Tab.DIS PO PRN (14:27)
[2019-05-18] MEDS ORDERED: Acetaminophen 325 MG Tab PO PRN (14:27)
[2019-05-18] MEDS ORDERED: Magnesium Sulfate/Water 2 GM in Premix Bag 1 BAG IV ONE (15:22)
[2019-05-18] MEDS ORDERED: traMADol 50 MG Tab PO PRN (15:50)
[2019-05-18 16:11] LABS: HEMOGLOBIN A1C 8.3 % (4.5-6.2)
[2019-05-18] MEDS ORDERED: Warfarin 2.5 MG Tab PO SCH (16:15)
[2019-05-18] MEDS: Insulin Aspart 100 Units/ML 3 ML Pen SUBCUT SCH (16:21)
[2019-05-18] MEDS ORDERED: atorvaSTATin 20 MG Tab PO SCH (21:00)
[2019-05-19 05:59] LABS: CARBON DIOXIDE,CO2 28.4 mmol/L (21.0-32.0); POTASSIUM,K 4.2 mmol/L (3.5-5.1)
[2019-05-19] MEDS ORDERED: Magnesium Sulfate/Water 2 GM in Premix Bag 1 BAG IV ONE (07:08)
[2019-05-19] MEDS: Insulin Aspart 100 Units/ML 3 ML Pen SUBCUT SCH ×2 (07:43→11:48)
[2019-05-19] MEDS ORDERED: Furosemide 40 MG Tab PO SCH (09:00)
[2019-05-19] MEDS ORDERED: Isosorbide Mononitrate 30 MG Tab.ER PO SCH (09:00)
[2019-05-19] MEDS ORDERED: Clopidogrel 75 MG Tab PO SCH (09:00)
[2019-05-19 13:20] VITALS: BP 133/62; PULSE 56
--- NOTE | 2019-05-19 13:29 | PCM.DCSUM1 ---
<Jovan To - Last Filed: 05/20/19 15:01> Discharge Summary - Hospital Course Free Text/Narrative:: 84-year-old male admitted for syncopal episode and symptomatic bradycardia. He has a PMH of atrial fibrillation on warfarin, DM type II and HTN. Patient was at his PCP's office and had a witnessed syncopal episode. Per ER report, there was loss of urinary control, however, patient and have denied this. Patient was able to recall the event. CT head was negative. CXR negative. EKG showed sinus bradycardia with no heart block. Troponins were trended and were negative. ECHO is currently pending. Patient remained on telemetry and was in sinus bradycardia with HR of 40-50 bpm. His dose of metoprolol was reduced to 25 mg BID. He had no recurrence of symptoms during hospitalization. He was discharged in stable condition and advised to follow-up with city planning aide and his PCP. - Discharge Data Discharge Date: 05/19/19 Discharge Disposition: Home, Self-Care 01 Condition: Stable - Referral to Home Health Primary Care Physician: Sy Mata MD - Patient Instructions Diet: Usual Diet as Tolerated Activity: As Tolerated Notify Provider of: Fever, Increased Pain, Swelling and Redness, Drainage, Nausea and/or Vomiting - Discharge Plan *PRESCRIPTION DRUG MONITORING PROGRAM REVIEWED*: Not Applicable *COPY OF PRESCRIPTION DRUG MONITORING REPORT IN PATIENT CARMENZA: Not Applicable Prescriptions/Med Rec: Metoprolol Tartrate 25 mg PO BID 30 Days #60 tablet Home Medications: Home Meds Enalapril Maleate 10 mg PO DAILY 11/16/13 [History] Insuln Asp Prot/Insulin Aspart [NovoLOG Mix 70-30] 28 unit SQ QAM 11/16/13 [ History] metFORMIN HCl [Metformin HCl] 1,000 mg PO BID 11/16/13 [History] Clopidogrel Bisulfate [Plavix] 75 mg PO DAILY 03/12/16 [History] Insuln Asp Prot/Insulin Aspart [NovoLOG Mix 70-30] 18 unit SQ QPM 03/12/16 [ History] Isosorbide Mononitrate [Isosorbide Mononitrate ER] 15 mg PO DAILY 03/16/16 [ History] Acetaminophen [Tylenol Extra Strength] 500 mg PO Q6H PRN 09/20/18 [History] Furosemide 40 mg PO DAILY 09/20/18 [History] Warfarin [Coumadin] 7.5 mg PO DAILY@1400 09/20/18 [History] atorvaSTATin [Lipitor] 20 mg PO BEDTIME 09/20/18 [History] traMADol [Ultram] 50 mg PO Q6H PRN 09/20/18 [History] Metoprolol Tartrate 25 mg PO BID 30 Days #60 tablet 05/19/19 [Rx] Patient Handouts: Metoprolol tablets, Bradycardia, Adult Referrals: Nigel Crowe,Rios [Ordering Only Provider] - Makenzie Wilder MD [Physician] - Sy Mata MD [Primary Care Provider] - - Discharge Summary/Plan Comment DC Time >30 min.: No - Patient Data Vitals - Most Recent: Last Vital Signs Temp 97.6 F 05/19/19 12:00 Pulse 56 L 05/19/19 12:00 Resp 18 05/19/19 12:00 BP 133/62 05/19/19 12:00 Pulse Ox 96 05/19/19 12:00 Weight - Most Recent: 102 kg I&O - Last 24 hours: Intake & Output 05/18/19 05/19/19 05/19/19 22:59 06:59 14:59 Intake Total 50 730 Output Total 200 Balance 50 530 Lab Results - Last 24 hrs: Laboratory Results - last 24 hr 05/18/19 05/18/19 05/18/19 Range/Units 11:40 11:40 14:30 WBC (4.0-11.0) K/uL RBC (4.50-5.90) M/uL Hgb (13.0-17.0) g/dL Hct (38.0-50.0) % MCV (80.0-98.0) fL MCH (27.0-32.0) pg MCHC (31.0-37.0) g/dL RDW Std Deviation (28.0-62.0) fl RDW Coeff of Aneudy (11.0-15.0) % Plt Count (150-400) K/uL MPV (7.40-12.00) fL Neut % (Auto) (48.0-80.0) % Lymph % (Auto) (16.0-40.0) % Atlantic % (Auto) (0.0-15.0) % Eos % (Auto) (0.0-7.0) % Baso % (Auto) (0.0-1.5) % Neut # (Auto) (1.4-5.7) K/uL Lymph # (Auto) (0.6-2.4) K/uL Atlantic # (Auto) (0.0-0.8) K/uL Eos # (Auto) (0.0-0.7) K/uL Baso # (Auto) (0.0-0.1) K/uL Nucleated RBC % /100WBC Nucleated RBCs # K/uL INR Sodium (136-148) mmol/L Potassium (3.5-5.1) mmol/L Chloride (98-107) mmol/L Carbon Dioxide (21.0-32.0) mmol/L BUN (7.0-18.0) mg/dL Creatinine (0.8-1.3) mg/dL Est Cr Clr Drug Dosing mL/min Estimated GFR (MDRD) ml/min Glucose (74-106) mg/dL POC Glucose (60-110) mg/dL Hemoglobin A1c 8.3 H (4.5-6.2) % Calcium (8.5-10.1) mg/dL Phosphorus 3.5 (2.6-4.7) mg/dL Magnesium 1.4 L (1.8-2.4) mg/dL Troponin I < 0.050 (0.000-0.056) ng/mL Triglycerides 139 (0-200) mg/dL Cholesterol 114 (50-200) mg/dL LDL Cholesterol, Calc 53 L (60-180) mg/dL VLDL Cholesterol 27 (5-55) mg/dL HDL Cholesterol 33 L (40-60) mg/dL Cholesterol/HDL Ratio 3.5 (3.3-6.0) Urine Color YELLOW Urine Appearance CLEAR Urine pH 6.0 (5.0-8.0) Ur Specific Rowley 1.020 (1.001-1.035) Urine Protein NEGATIVE (NEGATIVE) mg/dL Urine Glucose (UA) NEGATIVE (NEGATIVE) mg/dL Urine Ketones NEGATIVE (NEGATIVE) mg/dL Urine Occult Blood NEGATIVE (NEGATIVE) Urine Nitrite NEGATIVE (NEGATIVE) Urine Bilirubin NEGATIVE (NEGATIVE) Urine Urobilinogen 0.2 (<2.0) EU/dL Ur Leukocyte Esterase NEGATIVE (NEGATIVE) 05/18/19 05/18/19 05/18/19 Range/Units 16:01 17:40 20:34 WBC (4.0-11.0) K/uL RBC (4.50-5.90) M/uL Hgb (13.0-17.0) g/dL Hct (38.0-50.0) % MCV (80.0-98.0) fL MCH (27.0-32.0) pg MCHC (31.0-37.0) g/dL RDW Std Deviation (28.0-62.0) fl RDW Coeff of Aneudy (11.0-15.0) % Plt Count (150-400) K/uL MPV (7.40-12.00) fL Neut % (Auto) (48.0-80.0) % Lymph % (Auto) (16.0-40.0) % Atlantic % (Auto) (0.0-15.0) % Eos % (Auto) (0.0-7.0) % Baso % (Auto) (0.0-1.5) % Neut # (Auto) (1.4-5.7) K/uL Lymph # (Auto) (0.6-2.4) K/uL Atlantic # (Auto) (0.0-0.8) K/uL Eos # (Auto) (0.0-0.7) K/uL Baso # (Auto) (0.0-0.1) K/uL Nucleated RBC % /100WBC Nucleated RBCs # K/uL INR Sodium (136-148) mmol/L Potassium (3.5-5.1) mmol/L Chloride (98-107) mmol/L Carbon Dioxide (21.0-32.0) mmol/L BUN (7.0-18.0) mg/dL Creatinine (0.8-1.3) mg/dL Est Cr Clr Drug Dosing mL/min Estimated GFR (MDRD) ml/min Glucose (74-106) mg/dL POC Glucose 166 H (60-110) mg/dL Hemoglobin A1c (4.5-6.2) % Calcium (8.5-10.1) mg/dL Phosphorus (2.6-4.7) mg/dL Magnesium (1.8-2.4) mg/dL Troponin I < 0.050 < 0.050 (0.000-0.056) ng/mL Triglycerides (0-200) mg/dL Cholesterol (50-200) mg/dL LDL Cholesterol, Calc (60-180) mg/dL VLDL Cholesterol (5-55) mg/dL HDL Cholesterol (40-60) mg/dL Cholesterol/HDL Ratio (3.3-6.0) Urine Color Urine Appearance Urine pH (5.0-8.0) Ur Specific Rowley (1.001-1.035) Urine Protein (NEGATIVE) mg/dL Urine Glucose (UA) (NEGATIVE) mg/dL Urine Ketones (NEGATIVE) mg/dL Urine Occult Blood (NEGATIVE) Urine Nitrite (NEGATIVE) Urine Bilirubin (NEGATIVE) Urine Urobilinogen (<2.0) EU/dL Ur Leukocyte Esterase (NEGATIVE) 05/19/19 05/19/19 05/19/19 Range/Units 05:14 05:14 05:14 WBC 7.64 (4.0-11.0) K/uL RBC 4.04 L (4.50-5.90) M/uL Hgb 11.5 L (13.0-17.0) g/dL Hct 34.8 L (38.0-50.0) % MCV 86.1 (80.0-98.0) fL MCH 28.5 (27.0-32.0) pg MCHC 33.0 (31.0-37.0) g/dL RDW Std Deviation 49.0 (28.0-62.0) fl RDW Coeff of Aneudy 16 H (11.0-15.0) % Plt Count 167 (150-400) K/uL MPV 10.90 (7.40-12.00) fL Neut % (Auto) 58.6 (48.0-80.0) % Lymph % (Auto) 30.1 (16.0-40.0) % Atlantic % (Auto) 9.3 (0.0-15.0) % Eos % (Auto) 1.6 (0.0-7.0) % Baso % (Auto) 0.4 (0.0-1.5) % Neut # (Auto) 4.5 (1.4-5.7) K/uL Lymph # (Auto) 2.3 (0.6-2.4) K/uL Atlantic # (Auto) 0.7 (0.0-0.8) K/uL Eos # (Auto) 0.1 (0.0-0.7) K/uL Baso # (Auto) 0.0 (0.0-0.1) K/uL Nucleated RBC % 0.0 /100WBC Nucleated RBCs # 0 K/uL INR 2.17 Sodium 140 (136-148) mmol/L Potassium 4.2 (3.5-5.1) mmol/L Chloride 104 (98-107) mmol/L Carbon Dioxide 28.4 (21.0-32.0) mmol/L BUN 19 H (7.0-18.0) mg/dL Creatinine 1.2 (0.8-1.3) mg/dL Est Cr Clr Drug Dosing 47.31 mL/min Estimated GFR (MDRD) 57.7 ml/min Glucose 154 H (74-106) mg/dL POC Glucose (60-110) mg/dL Hemoglobin A1c (4.5-6.2) % Calcium 8.7 (8.5-10.1) mg/dL Phosphorus (2.6-4.7) mg/dL Magnesium 1.7 L (1.8-2.4) mg/dL Troponin I (0.000-0.056) ng/mL Triglycerides (0-200) mg/dL Cholesterol (50-200) mg/dL LDL Cholesterol, Calc (60-180) mg/dL VLDL Cholesterol (5-55) mg/dL HDL Cholesterol (40-60) mg/dL Cholesterol/HDL Ratio (3.3-6.0) Urine Color Urine Appearance Urine pH (5.0-8.0) Ur Specific Rowley (1.001-1.035) Urine Protein (NEGATIVE) mg/dL Urine Glucose (UA) (NEGATIVE) mg/dL Urine Ketones (NEGATIVE) mg/dL Urine Occult Blood (NEGATIVE) Urine Nitrite (NEGATIVE) Urine Bilirubin (NEGATIVE) Urine Urobilinogen (<2.0) EU/dL Ur Leukocyte Esterase (NEGATIVE) 05/19/19 05/19/19 Range/Units 06:13 11:31 WBC (4.0-11.0) K/uL RBC (4.50-5.90) M/uL Hgb (13.0-17.0) g/dL Hct (38.0-50.0) % MCV (80.0-98.0) fL MCH (27.0-32.0) pg MCHC (31.0-37.0) g/dL RDW Std Deviation (28.0-62.0) fl RDW Coeff of Aneudy (11.0-15.0) % Plt Count (150-400) K/uL MPV (7.40-12.00) fL Neut % (Auto) (48.0-80.0) % Lymph % (Auto) (16.0-40.0) % Atlantic % (Auto) (0.0-15.0) % Eos % (Auto) (0.0-7.0) % Baso % (Auto) (0.0-1.5) % Neut # (Auto) (1.4-5.7) K/uL Lymph # (Auto) (0.6-2.4) K/uL Atlantic # (Auto) (0.0-0.8) K/uL Eos # (Auto) (0.0-0.7) K/uL Baso # (Auto) (0.0-0.1) K/uL Nucleated RBC % /100WBC Nucleated RBCs # K/uL INR Sodium (136-148) mmol/L Potassium (3.5-5.1) mmol/L Chloride (98-107) mmol/L Carbon Dioxide (21.0-32.0) mmol/L BUN (7.0-18.0) mg/dL Creatinine (0.8-1.3) mg/dL Est Cr Clr Drug Dosing mL/min Estimated GFR (MDRD) ml/min Glucose (74-106) mg/dL POC Glucose 148 H 282 H (60-110) mg/dL Hemoglobin A1c (4.5-6.2) % Calcium (8.5-10.1) mg/dL Phosphorus (2.6-4.7) mg/dL Magnesium (1.8-2.4) mg/dL Troponin I (0.000-0.056) ng/mL Triglycerides (0-200) mg/dL Cholesterol (50-200) mg/dL LDL Cholesterol, Calc (60-180) mg/dL VLDL Cholesterol (5-55) mg/dL HDL Cholesterol (40-60) mg/dL Cholesterol/HDL Ratio (3.3-6.0) Urine Color Urine Appearance Urine pH (5.0-8.0) Ur Specific Rowley (1.001-1.035) Urine Protein (NEGATIVE) mg/dL Urine Glucose (UA) (NEGATIVE) mg/dL Urine Ketones (NEGATIVE) mg/dL Urine Occult Blood (NEGATIVE) Urine Nitrite (NEGATIVE) Urine Bilirubin (NEGATIVE) Urine Urobilinogen (<2.0) EU/dL Ur Leukocyte Esterase (NEGATIVE) [facility]ILMER Results - Last 24 hrs: Microbiology 05/18/19 11:46 Aerobic Blood Culture - Preliminary Blood - Venous - Lab Draw NO GROWTH AFTER 1 DAY Anaerobic Blood Culture - Preliminary NO GROWTH AFTER 1 DAY 05/18/19 11:40 Aerobic Blood Culture - Preliminary Blood - Venous NO GROWTH AFTER 1 DAY Anaerobic Blood Culture - Preliminary NO GROWTH AFTER 1 DAY Med Orders - Current: Current Medications Acetaminophen (Tylenol) 650 mg PO Q4H PRN PRN Reason: Pain (Mild 1-3)/fever Atorvastatin Calcium (Lipitor) 20 mg PO BEDTIME [facility] Last Admin: 05/18/19 21:48 Dose: 20 mg Clopidogrel Bisulfate (Plavix) 75 mg PO DAILY [facility] Last Admin: 05/19/19 09:06 Dose: 75 mg Enalapril Maleate (Vasotec) 10 mg PO DAILY [facility] Last Admin: 05/19/19 09:07 Dose: 10 mg Furosemide (Lasix) 40 mg PO DAILY [facility] Last Admin: 05/19/19 09:04 Dose: 40 mg Insulin Aspart (Novolog) 0 unit SUBCUT TIDAC [facility]; Protocol Last Admin: 05/19/19 11:48 Dose: 6 units Isosorbide Mononitrate (Imdur) 15 mg PO DAILY [facility] Last Admin: 05/19/19 09:03 Dose: 15 mg Ondansetron HCl (Zofran Odt) 4 mg PO Q4H PRN PRN Reason: nausea, able to take PO Tramadol HCl (Ultram) 50 mg PO Q6H PRN PRN Reason: Pain Warfarin Sodium (Coumadin Ask) 1 each PO DAILY@1400 [facility] Warfarin Sodium (Coumadin) 11.25 mg PO ONETIME NILSA Discontinued Medications Glucagon (Glucagen) 1 mg IVPUSH ONETIME ONE Stop: 05/18/19 11:50 Last Admin: 05/18/19 11:54 Dose: Not Given Glucagon (Glucagen) 3 mg IVPUSH ONETIME ONE Stop: 05/18/19 11:52 Last Admin: 05/18/19 11:55 Dose: 3 mg Sodium Chloride (Normal Saline) 1,000 mls @ 999 mls/hr IV BOLUS ONE Stop: 05/18/19 12:47 Last Admin: 05/18/19 11:54 Dose: 999 mls/hr Magnesium Sulfate 2 gm/ Premix 50 mls @ 25 mls/hr IV ONETIME ONE Stop: 05/18/19 17:21 Last Admin: 05/18/19 16:03 Dose: 25 mls/hr Magnesium Sulfate 2 gm/ Premix 50 mls @ 25 mls/hr IV ONETIME ONE Stop: 05/19/19 09:07 Last Admin: 05/19/19 08:59 Dose: 25 mls/hr Ondansetron HCl (Zofran) 4 mg IVPUSH ONETIME ONE Stop: 05/18/19 12:09 Last Admin: 05/18/19 12:11 Dose: 4 mg Ondansetron HCl (Zofran) Confirm Administered Dose 4 mg .ROUTE .STK-MED ONE Stop: 05/18/19 12:09 Last Admin: 05/18/19 12:13 Dose: Not Given Warfarin Sodium (Coumadin) 7.5 mg PO ONETIME NILSA Last Admin: 05/18/19 16:20 Dose: 7.5 mg <Jillian Bennett - Last Filed: 05/22/19 13:20> Discharge Summary - Hospital Course HPI Initial Comments: I have seen and evaluated the patient and agree with the residents note unless specified in my note - Referral to Home Health Primary Care Physician: Sy Mata MD - Patient Data Vitals - Most Recent: Last Vital Signs Temp 36.4 C 05/19/19 12:00 Pulse 56 L 05/19/19 12:00 Resp 18 05/19/19 12:00 BP 133/62 05/19/19 12:00 Pulse Ox 96 05/19/19 12:00 GILMER Results - Last 24 hrs: Microbiology 05/18/19 11:46 Aerobic Blood Culture - Preliminary Blood - Venous - Lab Draw NO GROWTH AFTER 4 DAYS Anaerobic Blood Culture - Preliminary NO GROWTH AFTER 4 DAYS 05/18/19 11:40 Aerobic Blood Culture - Preliminary Blood - Venous NO GROWTH AFTER 4 DAYS Anaerobic Blood Culture - Preliminary NO GROWTH AFTER 4 DAYS Med Orders - Current: Current Medications Discontinued Medications Acetaminophen (Tylenol) 650 mg PO Q4H PRN PRN Reason: Pain (Mild 1-3)/fever Atorvastatin Calcium (Lipitor) 20 mg PO BEDTIME [facility] Last Admin: 05/18/19 21:48 Dose: 20 mg Clopidogrel Bisulfate (Plavix) 75 mg PO DAILY [facility] Last Admin: 05/19/19 09:06 Dose: 75 mg Enalapril Maleate (Vasotec) 10 mg PO DAILY [facility] Last Admin: 05/19/19 09:07 Dose: 10 mg Furosemide (Lasix) 40 mg PO DAILY [facility] Last Admin: 05/19/19 09:04 Dose: 40 mg Glucagon (Glucagen) 1 mg IVPUSH ONETIME ONE Stop: 05/18/19 11:50 Last Admin: 05/18/19 11:54 Dose: Not Given Glucagon (Glucagen) 3 mg IVPUSH ONETIME ONE Stop: 05/18/19 11:52 Last Admin: 05/18/19 11:55 Dose: 3 mg Sodium Chloride (Normal Saline) 1,000 mls @ 999 mls/hr IV BOLUS ONE Stop: 05/18/19 12:47 Last Admin: 05/18/19 11:54 Dose: 999 mls/hr Magnesium Sulfate 2 gm/ Premix 50 mls @ 25 mls/hr IV ONETIME ONE Stop: 05/18/19 17:21 Last Admin: 05/18/19 16:03 Dose: 25 mls/hr Magnesium Sulfate 2 gm/ Premix 50 mls @ 25 mls/hr IV ONETIME ONE Stop: 05/19/19 09:07 Last Admin: 05/19/19 08:59 Dose: 25 mls/hr Insulin Aspart (Novolog) 0 unit SUBCUT TIDAC [facility]; Protocol Last Admin: 05/19/19 11:48 Dose: 6 units Isosorbide Mononitrate (Imdur) 15 mg PO DAILY [facility] Last Admin: 05/19/19 09:03 Dose: 15 mg Ondansetron HCl (Zofran) 4 mg IVPUSH ONETIME ONE Stop: 05/18/19 12:09 Last Admin: 05/18/19 12:11 Dose: 4 mg Ondansetron HCl (Zofran) Confirm Administered Dose 4 mg .ROUTE .STK-MED ONE Stop: 05/18/19 12:09 Last Admin: 05/18/19 12:13 Dose: Not Given Ondansetron HCl (Zofran Odt) 4 mg PO Q4H PRN PRN Reason: nausea, able to take PO Tramadol HCl (Ultram) 50 mg PO Q6H PRN PRN Reason: Pain Warfarin Sodium (Coumadin Ask) 1 each PO DAILY@1400 [facility] Last Admin: 05/19/19 14:08 Dose: Not Given Warfarin Sodium (Coumadin) 7.5 mg PO ONETIME [facility] Last Admin: 05/18/19 16:20 Dose: 7.5 mg Warfarin Sodium (Coumadin) 11.25 mg PO ONETIME [facility] Last Admin: 05/19/19 14:20 Dose: 11.25 mg
[2019-05-19] MEDS ORDERED: Warfarin 2.5 MG Tab PO SCH (14:00)
== END 2019-05-19 15:25 | disposition home or self-care (01) ==
LOC: MW.ED 11:43 → MW.MS 14:20
PROVIDERS: ADMIT Student in an Organized Health Care Education/Training Program; ATTEND Student in an Organized Health Care Education/Training Program
DX: R55 Syncope and collapse (principal); R00.1 Bradycardia, unspecified; E83.42 Hypomagnesemia; I48.91 Unspecified atrial fibrillation; E11.9 Type 2 diabetes mellitus without complications; I10 Essential (primary) hypertension; I25.10 Atherosclerotic heart disease of native coronary artery without angina pectoris; E78.00 Pure hypercholesterolemia, unspecified; Z79.4 Long term (current) use of insulin; Z79.01 Long term (current) use of anticoagulants; Z79.899 Other long term (current) drug therapy
CPT/HCPCS: 36415; 70450; 71045; 80048; 80053; 80061; 81003; 82962; 83036; 83605; 83690; 83735; 84100; 84146; 84484; 85025; 85610; 87040; 93005; 93306; 96361; 96365; 96366; 96375; 99285; A9270; G0378; J1610; J1815; J2405; J3475; J7040; 96374; 99284

== ENCOUNTER 2019-06-25 09:35 | Emergency (ER) | payer MEDICARE, BC ==
--- NOTE | 2019-06-25 10:16 | EDM.PDOC ---
ED HPI GENERAL MEDICAL PROBLEM - General Chief Complaint: Respiratory Problem Stated Complaint: PT THINKS HE MAY HAVE PNEMONIA Time Seen by Provider: 06/25/19 10:07 Source of Information: Reports: Patient History Limitations: Reports: No Limitations - History of Present Illness INITIAL COMMENTS - FREE TEXT/NARRATIVE: Patient is an 84-year-old male who is complaining of left-sided symptoms have been going on for several days improve last night and worse today. Patient is complaining of withdrawal chest pain on his left side that he says was 10 out of 10 in intensity this morning. Denies any shortness of breath or diaphoresis and he is not nauseous has had no vomiting or any bloody or tarry stools. Patient also denies any cough or fever or chills. He denies any dysuria or hematuria. At times pain has radiated to his jaw on the left side. Patient is also complaining of right hip pain. He denies any pain or swelling to the lower extremities. Duration: Day(s): (4), Waxing/Waning Location: Reports: Chest, Back Quality: Reports: Ache Severity: Severe left shoulder and ribs Pain Score (Numeric/FACES): 10 - Related Data Allergies Allergy/AdvReac Type Severity Reaction Status Date / Time No Known Allergies Allergy Verified 06/25/19 09:44 Home Meds: Home Meds Enalapril Maleate 10 mg PO DAILY 11/16/13 [History] Insuln Asp Prot/Insulin Aspart [NovoLOG Mix 70-30] 28 unit SQ QAM 11/16/13 [ History] metFORMIN HCl [Metformin HCl] 1,000 mg PO BID 11/16/13 [History] Clopidogrel Bisulfate [Plavix] 75 mg PO DAILY 03/12/16 [History] Insuln Asp Prot/Insulin Aspart [NovoLOG Mix 70-30] 18 unit SQ QPM 03/12/16 [ History] Isosorbide Mononitrate [Isosorbide Mononitrate ER] 15 mg PO DAILY 03/16/16 [ History] Acetaminophen [Tylenol Extra Strength] 500 mg PO Q6H PRN 09/20/18 [History] Furosemide 40 mg PO DAILY 09/20/18 [History] Warfarin [Coumadin] 7.5 mg PO DAILY@1400 09/20/18 [History] atorvaSTATin [Lipitor] 20 mg PO BEDTIME 09/20/18 [History] traMADol [Ultram] 50 mg PO Q6H PRN 09/20/18 [History] Metoprolol Tartrate 25 mg PO BID 30 Days #60 tablet 05/19/19 [Rx] Past Medical History HEENT History: Reports: None Cardiovascular History: Reports: CAD, High Cholesterol, Hypertension, Other ( See Below) Other Cardiovascular History: 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" Respiratory History: Reports: None Gastrointestinal History: Reports: Hiatal Hernia Genitourinary History: Reports: None Musculoskeletal History: Reports: Back Pain, Chronic, Fracture, Gout Other Musculoskeletal History: hx of hand and foot fx Neurological History: Reports: Concussion, Head Trauma, Vertigo Other Neuro History: possible concussion yrs ago Psychiatric History: Reports: None Endocrine/Metabolic History: Reports: Diabetes, Type II, Obesity/BMI 30+ Hematologic History: Reports: Anticoagulation Therapy Immunologic History: Reports: None Oncologic (Cancer) History: Reports: None Dermatologic History: Reports: None - Infectious Disease History Infectious Disease History: Reports: Measles - Past Surgical History Head Surgeries/Procedures: Reports: None GI Surgical History: Reports: Cholecystectomy, Guy Fundoplication Male Surgical History: Reports: None Neurological Surgical History: Reports: None Musculoskeletal Surgical History: Reports: Carpal Tunnel Social & Family History - Family History Family Medical History: Noncontributory - Tobacco Use Smoking Status *Q: Never Smoker - Caffeine Use Caffeine Use: Reports: Coffee - Recreational Drug Use Recreational Drug Use: No ED ROS GENERAL - Review of Systems Review Of Systems: Comprehensive ROS is negative, except as noted in HPI. ED EXAM, GENERAL - Physical Exam Exam: See Below Exam Limited By: No Limitations General Appearance: Alert, Mild Distress Head: Atraumatic Neck: Supple, Non-Tender Respiratory/Chest: No Respiratory Distress, Lungs Clear, Normal Breath Sounds, Other (Positive for left chest wall tenderness without any rash.) Cardiovascular: Regular Rate, Rhythm, No Edema, No JVD GI/Abdominal: Normal Bowel Sounds, Soft, No Organomegaly, Tender. No: Hepatomegaly, Splenomegaly Back Exam: Normal Inspection Extremities: Normal Inspection Neurological: Alert, Oriented, Normal Cognition Psychiatric: Normal Affect Skin Exam: Warm, Dry Course - Vital Signs Last Recorded V/S: Last Vital Signs Temp 36.9 C 06/25/19 09:42 Pulse 68 06/25/19 10:46 Resp 18 06/25/19 10:46 BP 114/69 06/25/19 09:42 Pulse Ox 94 L 06/25/19 10:46 - Orders/Labs/Meds Orders: Active Orders 24 hr Category Date Time Status EKG Documentation Completion [RC] STAT Care 06/25/19 09:49 Active Labs: Laboratory Tests 06/25/19 06/25/19 06/25/19 Range/Units 10:12 10:12 10:12 WBC 11.37 H (4.0-11.0) K/uL RBC 4.38 L (4.50-5.90) M/uL Hgb 12.5 L (13.0-17.0) g/dL Hct 37.5 L (38.0-50.0) % MCV 85.6 (80.0-98.0) fL MCH 28.5 (27.0-32.0) pg MCHC 33.3 (31.0-37.0) g/dL RDW Std Deviation 48.2 (28.0-62.0) fl RDW Coeff of Aneudy 15 (11.0-15.0) % Plt Count 231 (150-400) K/uL MPV 10.40 (7.40-12.00) fL Neut % (Auto) 72.5 (48.0-80.0) % Lymph % (Auto) 14.3 L (16.0-40.0) % [place] % (Auto) 12.0 (0.0-15.0) % Eos % (Auto) 0.9 (0.0-7.0) % Baso % (Auto) 0.3 (0.0-1.5) % Neut # (Auto) 8.2 H (1.4-5.7) K/uL Lymph # (Auto) 1.6 (0.6-2.4) K/uL [place] # (Auto) 1.4 H (0.0-0.8) K/uL Eos # (Auto) 0.1 (0.0-0.7) K/uL Baso # (Auto) 0.0 (0.0-0.1) K/uL Nucleated RBC % 0.0 /100WBC Nucleated RBCs # 0 K/uL INR 2.94 D-Dimer, Quantitative (0.0-0.50) mg/L FEU Lactate (0.20-2.00) mmol/L Sodium 134 L (136-148) mmol/L Potassium 4.3 (3.5-5.1) mmol/L Chloride 95 L (98-107) mmol/L Carbon Dioxide 31.6 (21.0-32.0) mmol/L BUN 24 H (7.0-18.0) mg/dL Creatinine 1.3 (0.8-1.3) mg/dL Est Cr Clr Drug Dosing 43.68 mL/min Estimated GFR (MDRD) 52.6 ml/min Glucose 188 H (74-106) mg/dL Calcium 8.8 (8.5-10.1) mg/dL Total Bilirubin 0.8 (0.2-1.0) mg/dL AST 10 L (15-37) IU/L ALT 16 (14-63) IU/L Alkaline Phosphatase 109 (46-116) U/L Troponin I (0.000-0.056) ng/mL Total Protein 7.5 (6.4-8.2) g/dL Albumin 3.0 L (3.4-5.0) g/dL Globulin 4.5 H (2.6-4.0) g/dL Albumin/Globulin Ratio 0.7 L (0.9-1.6) Lipase (73-393) U/L Urine Color Urine Appearance Urine pH (5.0-8.0) Ur Specific [place] (1.001-1.035) Urine Protein (NEGATIVE) mg/dL Urine Glucose (UA) (NEGATIVE) mg/dL Urine Ketones (NEGATIVE) mg/dL Urine Occult Blood (NEGATIVE) Urine Nitrite (NEGATIVE) Urine Bilirubin (NEGATIVE) Urine Urobilinogen (<2.0) EU/dL Ur Leukocyte Esterase (NEGATIVE) Urine RBC (0-2/HPF) Urine WBC (0-5/HPF) Ur Squamous Epith Cells Urine Bacteria (NEGATIVE) 06/25/19 06/25/19 06/25/19 Range/Units 10:12 10:12 10:50 WBC (4.0-11.0) K/uL RBC (4.50-5.90) M/uL Hgb (13.0-17.0) g/dL Hct (38.0-50.0) % MCV (80.0-98.0) fL MCH (27.0-32.0) pg MCHC (31.0-37.0) g/dL RDW Std Deviation (28.0-62.0) fl RDW Coeff of Aneudy (11.0-15.0) % Plt Count (150-400) K/uL MPV (7.40-12.00) fL Neut % (Auto) (48.0-80.0) % Lymph % (Auto) (16.0-40.0) % [place] % (Auto) (0.0-15.0) % Eos % (Auto) (0.0-7.0) % Baso % (Auto) (0.0-1.5) % Neut # (Auto) (1.4-5.7) K/uL Lymph # (Auto) (0.6-2.4) K/uL [place] # (Auto) (0.0-0.8) K/uL Eos # (Auto) (0.0-0.7) K/uL Baso # (Auto) (0.0-0.1) K/uL Nucleated RBC % /100WBC Nucleated RBCs # K/uL INR D-Dimer, Quantitative 1.57 H (0.0-0.50) mg/L FEU Lactate 2.0 (0.20-2.00) mmol/L Sodium (136-148) mmol/L Potassium (3.5-5.1) mmol/L Chloride (98-107) mmol/L Carbon Dioxide (21.0-32.0) mmol/L BUN (7.0-18.0) mg/dL Creatinine (0.8-1.3) mg/dL Est Cr Clr Drug Dosing mL/min Estimated GFR (MDRD) ml/min Glucose (74-106) mg/dL Calcium (8.5-10.1) mg/dL Total Bilirubin (0.2-1.0) mg/dL AST (15-37) IU/L ALT (14-63) IU/L Alkaline Phosphatase (46-116) U/L Troponin I < 0.050 (0.000-0.056) ng/mL Total Protein (6.4-8.2) g/dL Albumin (3.4-5.0) g/dL Globulin (2.6-4.0) g/dL Albumin/Globulin Ratio (0.9-1.6) Lipase 96 (73-393) U/L Urine Color Urine Appearance Urine pH (5.0-8.0) Ur Specific [place] (1.001-1.035) Urine Protein (NEGATIVE) mg/dL Urine Glucose (UA) (NEGATIVE) mg/dL Urine Ketones (NEGATIVE) mg/dL Urine Occult Blood (NEGATIVE) Urine Nitrite (NEGATIVE) Urine Bilirubin (NEGATIVE) Urine Urobilinogen (<2.0) EU/dL Ur Leukocyte Esterase (NEGATIVE) Urine RBC (0-2/HPF) Urine WBC (0-5/HPF) Ur Squamous Epith Cells Urine Bacteria (NEGATIVE) 06/25/19 Range/Units 12:20 WBC (4.0-11.0) K/uL RBC (4.50-5.90) M/uL Hgb (13.0-17.0) g/dL Hct (38.0-50.0) % MCV (80.0-98.0) fL MCH (27.0-32.0) pg MCHC (31.0-37.0) g/dL RDW Std Deviation (28.0-62.0) fl RDW Coeff of Aneudy (11.0-15.0) % Plt Count (150-400) K/uL MPV (7.40-12.00) fL Neut % (Auto) (48.0-80.0) % Lymph % (Auto) (16.0-40.0) % [place] % (Auto) (0.0-15.0) % Eos % (Auto) (0.0-7.0) % Baso % (Auto) (0.0-1.5) % Neut # (Auto) (1.4-5.7) K/uL Lymph # (Auto) (0.6-2.4) K/uL [place] # (Auto) (0.0-0.8) K/uL Eos # (Auto) (0.0-0.7) K/uL Baso # (Auto) (0.0-0.1) K/uL Nucleated RBC % /100WBC Nucleated RBCs # K/uL INR D-Dimer, Quantitative (0.0-0.50) mg/L FEU Lactate (0.20-2.00) mmol/L Sodium (136-148) mmol/L Potassium (3.5-5.1) mmol/L Chloride (98-107) mmol/L Carbon Dioxide (21.0-32.0) mmol/L BUN (7.0-18.0) mg/dL Creatinine (0.8-1.3) mg/dL Est Cr Clr Drug Dosing mL/min Estimated GFR (MDRD) ml/min Glucose (74-106) mg/dL Calcium (8.5-10.1) mg/dL Total Bilirubin (0.2-1.0) mg/dL AST (15-37) IU/L ALT (14-63) IU/L Alkaline Phosphatase (46-116) U/L Troponin I (0.000-0.056) ng/mL Total Protein (6.4-8.2) g/dL Albumin (3.4-5.0) g/dL Globulin (2.6-4.0) g/dL Albumin/Globulin Ratio (0.9-1.6) Lipase (73-393) U/L Urine Color YELLOW Urine Appearance CLEAR Urine pH 7.0 (5.0-8.0) Ur Specific [place] 1.015 (1.001-1.035) Urine Protein 30 H (NEGATIVE) mg/dL Urine Glucose (UA) NEGATIVE (NEGATIVE) mg/dL Urine Ketones NEGATIVE (NEGATIVE) mg/dL Urine Occult Blood NEGATIVE (NEGATIVE) Urine Nitrite NEGATIVE (NEGATIVE) Urine Bilirubin NEGATIVE (NEGATIVE) Urine Urobilinogen 2.0 H (<2.0) EU/dL Ur Leukocyte Esterase NEGATIVE (NEGATIVE) Urine RBC NONE SEEN (0-2/HPF) Urine WBC 0-1 (0-5/HPF) Ur Squamous Epith Cells NOT SEEN Urine Bacteria NOT SEEN (NEGATIVE) Meds: Medications Discontinued Medications Generic Name Dose Route Start Last Admin Trade Name Freq PRN Reason Stop Dose Admin Iopamidol 100 ml 06/25/19 13:14 06/25/19 13:15 Isovue-370 (76%) IVPUSH 06/25/19 13:15 100 ml ONETIME ONE Administration Lidocaine 700 mg 06/25/19 12:30 06/25/19 13:30 Lidoderm 5% TOP 06/25/19 12:31 700 mg ONETIME ONE Administration - Re-Assessments/Exams Free Text/Narrative Re-Assessment/Exam: 06/25/19 14:21 Patient's lab work showed an elevated d-dimer for which he underwent a CTA which showed no pulmonary embolus patient does have a few pulmonary nodules. His lab work shows INR that is in the high end of therapeutic and urine which shows no sign of infection or blood. His other labs are unremarkable. he is feeling moderately better with Lidoderm patch is able to move with only a slight amount of pain. I am discharging him at this point with a prescription for Augmentin since I think I am seeing an infiltrate on his left base of his lung. Radiologist did not remark on this finding. he declines any additional pain medicine. Departure - Departure Time of Disposition: 14:24 Disposition: Home, Self-Care 01 Condition: Good Clinical Impression: Atypical chest pain, Pneumonia - Discharge Information Instructions: Nonspecific Chest Pain, Community-Acquired Pneumonia, Adult Referrals: PCP,Unobtain [Primary Care Provider] - Forms: ED Department Discharge Additional Instructions: Augmentin for 7-day course. Lidoderm patch as needed. Follow-up with PCP on Thursday or Thursday for recheck. Return to emergency department if symptoms are worse. The following information is given to patients seen in the emergency department who are being discharged to home. This information is to outline your options for follow-up care. We provide all patients seen in our emergency department with a follow-up referral. The need for follow-up, as well as the timing and circumstances, are variable depending upon the specifics of your emergency department visit. If you don't have a primary care physician on staff, we will provide you with a referral. We always advise you to contact your personal physician following an emergency department visit to inform them of the circumstance of the visit and for follow-up with them and/or the need for any referrals to a consulting specialist. The emergency department will also refer you to a specialist when appropriate. This referral assures that you have the opportunity for follow-up care with a specialist. All of these measure are taken in an effort to provide you with optimal care, which includes your follow-up. Under all circumstances we always encourage you to contact your private physician who remains a resource for coordinating your care. When calling for follow-up care, please make the office aware that this follow-up is from your recent emergency room visit. If for any reason you are refused follow-up, please contact the [facility] Emergency Department at and asked to speak to the emergency department charge nurse. Sepsis Event Note - Evaluation Sepsis Screening Result: No Definite Risk - Focused Exam Vital Signs: Vital Signs Temp Pulse Resp BP Pulse Ox 06/25/19 10:46 68 18 94 L 06/25/19 09:42 36.9 C 62 18 114/69 95 Date Exam was Performed: 06/25/19 Time Exam was Performed: 14:19 - My Orders Last 24 Hours: My Active Orders 06/25/19 09:49 EKG Documentation Completion [RC] STAT - Assessment/Plan Last 24 Hours: My Active Orders 06/25/19 09:49 EKG Documentation Completion [RC] STAT
[2019-06-25 10:37] LABS: CARBON DIOXIDE,CO2 31.6 mmol/L (21.0-32.0); POTASSIUM,K 4.3 mmol/L (3.5-5.1)
--- NOTE | 2019-06-25 11:03 | CR ---
INDICATION: cough, chest pain TECHNIQUE: Chest 2 views. COMPARISON: None. FINDINGS: Cardiovascular and mediastinum: Heart size and vasculature are normal in caliber and appearance. Mediastinum is within normal limits. Lungs and pleural spaces: Lungs are clear. No sign of infiltrate or mass. No sign of pleural effusion. No pneumothorax. Bones and soft tissues: No significant findings. IMPRESSION: Unremarkable chest. Dictated by: Claude Saenz MD @ 06/25/2019 11:02:08 (Electronically Signed)
[2019-06-25 11:18] LABS: LIPASE 96 U/L (73-393)
[2019-06-25] MEDS ORDERED: Lidocaine 5% 700 MG Patch TOP ONE (12:30)
[2019-06-25] MEDS ORDERED: Iopamidol 755 MG/ML 200 ML Multipack Bottle IVPUSH ONE (13:13)
[2019-06-25] MEDS ORDERED: Iopamidol 755 Mg/ML 100 ML Bottle IVPUSH ONE (13:14)
--- NOTE | 2019-06-25 14:07 | CT ---
HISTORY: Chest pain. Elevated D-dimer. TECHNIQUE: CT chest with IV contrast, pulmonary embolism protocol. COMPARISON: None. FINDINGS: Pulmonary arteries: No pulmonary embolism. Main pulmonary artery is upper normal caliber. Lungs: Central airways are patent. Patchy mosaic attenuation in both lungs. Mild atelectasis or scarring in both lung bases. Mild subpleural reticulation in the upper lobes is likely from scarring. No consolidation. Mild elevation of left hemidiaphragm. No pleural effusion or pneumothorax. 4 mm noncalcified pulmonary nodule in the right lower lobe (series 502, image 53). 5 mm noncalcified pulmonary nodule in the left lower lobe (series 502, image 46). Mediastinum: Ascending thoracic aorta is mildly dilated to 3.9 cm. Mild aortic atherosclerotic calcifications. Coronary artery calcifications. No pericardial effusion. Postoperative changes near the GE junction. Small hiatal hernia. Lymph nodes: No enlarged lymph nodes. Musculoskeletal: Degenerative changes of the spine. Ossification between posterior left 6th and 7th ribs is likely from remote trauma. Upper abdomen: Atherosclerotic calcifications. IMPRESSION: 1. No pulmonary embolism. 2. Mosaic attenuation in both lungs is nonspecific but may be due to small airway disease. 3. Two pulmonary nodules measuring up to 5 mm. If patient is at high risk for malignancy consider follow-up chest CT in 12 months. 4. Atherosclerosis. Mildly dilated ascending thoracic aorta. Please note that all CT scans at this facility use dose modulation, iterative reconstruction, and/or weight-based dosing when appropriate to reduce radiation dose to as low as reasonably achievable. Dictated by Wilber Avila MD @ Jun 25 2019 1:57PM Signed by Dr. Wilber Avila @ Jun 25 2019 2:05PM
[2019-06-25 14:44] VITALS: BP 115/62; PULSE 71
== END 2019-06-25 14:45 | disposition home or self-care (01) ==
LOC: MW.ED 09:35
DX: J18.9 Pneumonia, unspecified organism (principal); I10 Essential (primary) hypertension; E11.9 Type 2 diabetes mellitus without complications; Z79.4 Long term (current) use of insulin; Z79.899 Other long term (current) drug therapy
CPT/HCPCS: 36415; 71046; 71275; 80053; 81001; 83605; 83690; 84484; 85025; 85379; 85610; 87804; 93005; 99285; A9270; Q9967; 99284

== ENCOUNTER 2020-10-21 15:28 | Emergency (ER) | payer MEDICARE, BC ==
[2020-10-21 15:53] VITALS: BP 123/64; PULSE 66
--- NOTE | 2020-10-21 15:59 | EDM.PDOC ---
ED HPI GENERAL MEDICAL PROBLEM - General Chief Complaint: General Stated Complaint: SPOKEN TO NURSE Time Seen by Provider: 10/21/20 15:29 - History of Present Illness INITIAL COMMENTS - FREE TEXT/NARRATIVE: 85-year-old male with history of multiple medical problems presenting after a fall yesterday. Patient [place] came loose and he fell backward hitting the left lateral chest on the drill. No head trauma no LOC patient has some left lateral chest discomfort that worsens with pressure and worsens with twisting. No shortness of breath no lightheadedness dizziness syncope or near syncope. Neck pain extremity pain. Patient does note a cut to the back of his right hand from the wire yesterday but this does not hurt. His last tetanus was for 5 years ago. left ribs Pain Score (Numeric/FACES): 6 - Related Data Allergies Allergy/AdvReac Type Severity Reaction Status Date / Time No Known Allergies Allergy Verified 10/21/20 15:53 Home Meds: Home Meds Enalapril Maleate 10 mg PO DAILY 11/16/13 [History] Insuln Asp Prot/Insulin Aspart [NovoLOG Mix 70-30] 28 unit SQ QAM 11/16/13 [Hist ory] metFORMIN HCl [Metformin HCl] 1,000 mg PO BID 11/16/13 [History] Clopidogrel Bisulfate [Plavix] 75 mg PO DAILY 03/12/16 [History] Insuln Asp Prot/Insulin Aspart [NovoLOG Mix 70-30] 18 unit SQ QPM 03/12/16 [History] Isosorbide Mononitrate [Isosorbide Mononitrate ER] 15 mg PO DAILY 03/16/16 [History] Acetaminophen [Tylenol Extra Strength] 500 mg PO Q6H PRN 09/20/18 [History] Furosemide 40 mg PO DAILY 09/20/18 [History] Warfarin [Coumadin] 7.5 mg PO DAILY@1400 09/20/18 [History] atorvaSTATin [Lipitor] 20 mg PO BEDTIME 09/20/18 [History] traMADol [Ultram] 50 mg PO Q6H PRN 09/20/18 [History] Metoprolol Tartrate 25 mg PO BID 30 Days #60 tablet 05/19/19 [Rx] Amoxicillin/Potassium Clav [Augmentin 875-125 Tablet] 1 each PO BID #14 tablet 06/25/19 [Rx] Lidocaine 5% [Lidoderm 5%] 1 patch TOP DAILY PRN #10 patch 06/25/19 [Rx] Past Medical History HEENT History: Reports: None Cardiovascular History: Reports: CAD, High Cholesterol, Hypertension, Other (See Below) Other Cardiovascular History: 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" Respiratory History: Reports: None Gastrointestinal History: Reports: Hiatal Hernia Genitourinary History: Reports: None Musculoskeletal History: Reports: Back Pain, Chronic, Fracture, Gout Other Musculoskeletal History: hx of hand and foot fx Neurological History: Reports: Concussion, Head Trauma, Vertigo Other Neuro History: possible concussion yrs ago Psychiatric History: Reports: None Endocrine/Metabolic History: Reports: Diabetes, Type II, Obesity/BMI 30+ Hematologic History: Reports: Anticoagulation Therapy Immunologic History: Reports: None Oncologic (Cancer) History: Reports: None Dermatologic History: Reports: None - Infectious Disease History Infectious Disease History: Reports: Measles - Past Surgical History Head Surgeries/Procedures: Reports: None GI Surgical History: Reports: Cholecystectomy, Guy Fundoplication Male Surgical History: Reports: None Neurological Surgical History: Reports: None Musculoskeletal Surgical History: Reports: Carpal Tunnel Social & Family History - Family History Family Medical History: No Pertinent Family History - Caffeine Use Caffeine Use: Reports: Coffee ED ROS GENERAL - Review of Systems Review Of Systems: See Below Free Text/Narrative/Comment: General: No fever. Skin: Per HPI Eyes: No vision problems. ENT: No sore throat. Neck: No neck stiffness. Respiratory: No shortness of breath. Cardiac: Per HPI Gastrointestinal: No nausea, vomiting or abdominal pain. Urinary: No dysuria. Musculoskeletal: No myalgias/arthralgias. Neurologic: No headache. ED EXAM, GENERAL - Physical Exam Exam: See Below Free Text/Narrative:: General Appearance: No acute distress, appears comfortable Skin: Full centimeter linear abrasion along the dorsal aspect of the right hand no active wheezing no retained foreign body no underlying tenderness no swelling or ecchymosis HEENT: Normocephalic/atraumatic, sclera anicteric, mucous membranes moist Neck: Normal range of motion Chest and Lungs: Bilateral breath sounds, clear to auscultation Cardiovascular: Regular rate and rhythm, intact distal perfusion, focal tenderne ss in the left anterior axillary line ribs 7 and 8 no palpable deformity no overlying contusion or ecchymosis no crepitus Abdomen: Soft, non-tender Back: Normal Musculoskeletal: No edema or tenderness Neurologic: Awake, alert, no obvious deficits, moving all extremities Psychiatric: Appropriate, cooperative Course - Vital Signs Last Recorded V/S: Last Vital Signs Temp 97 F 10/21/20 15:48 Pulse 66 10/21/20 15:48 Resp 18 10/21/20 15:48 BP 123/64 10/21/20 15:48 Pulse Ox 96 10/21/20 15:48 Departure - Departure Time of Disposition: 16:31 Disposition: Home, Self-Care 01 Condition: Good Clinical Impression: Chest wall contusion - Discharge Information *PRESCRIPTION DRUG MONITORING PROGRAM REVIEWED*: Not Applicable *COPY OF PRESCRIPTION DRUG MONITORING REPORT IN PATIENT CARMENZA: Not Applicable Instructions: Rib Contusion Referrals: Sy Mata MD [Primary Care Provider] - Forms: ED Department Discharge Additional Instructions: You can continue to take the tramadol as you have been for pain control. Your symptoms should improve over the next several days. If your pain worsens or if you develop a cough or fever please call your doctor or return to the ER. The following information is given to patients seen in the emergency department who are being discharged to home. This information is to outline your options for follow-up care. We provide all patients seen in our emergency department with a follow-up referral. The need for follow-up, as well as the timing and circumstances, are variable depending upon the specifics of your emergency department visit. If you don't have a primary care physician on staff, we will provide you with a referral. We always advise you to contact your personal physician following an emergency department visit to inform them of the circumstance of the visit and for follow-up with them and/or the need for any referrals to a consulting specialist. The emergency department will also refer you to a specialist when appropriate. This referral assures that you have the opportunity for follow-up care with a specialist. All of these measure are taken in an effort to provide you with optimal care, which includes your follow-up. Under all circumstances we always encourage you to contact your private physician who remains a resource for coordinating your care. When calling for follow-up care, please make the office aware that this follow-up is from your recent emergency room visit. If for any reason you are refused follow-up, please contact the [facility] Emergency Department at and asked to speak to the emergency department charge nurse. Sepsis Event Note (ED) - Evaluation Sepsis Screening Result: No Definite Risk - Focused Exam Vital Signs: Vital Signs Temp Pulse Resp BP Pulse Ox 10/21/20 15:48 97 F 66 18 123/64 96 - Assessment/Plan Assessment:: Afebrile no presenting with traumatic but low velocity left lateral chest pain. Lungs clear on exam vital signs reassuring focal tenderness to suggest chest wall injury x-ray pending to assess for rib fracture pneumothorax hemothorax etc. Bleeding clinically clear the spine abdomen pelvis and other extremities. I do not have a clinical concern regarding the right hand laceration it is very superficial is already starting to heal the patient's tetanus is already up-to-date. 1630: X-ray shows no signs of traumatic injury. Patient states that he is getting good relief from tramadol that he has already. Return precautions discussed and understood patient will follow up with As needed.
--- NOTE | 2020-10-21 16:24 | CR ---
Clinical dictation : Lateral chest pain. Fall. COMPARISON: 06/25/2019. FINDINGS: There has been a previous sternotomy. There is an atrial appendage closure device. There is a pacemaker device on the right side of the chest with right atrial and right ventricular leads. The lungs are essentially clear. The pulmonary vasculature and pleural surfaces appear normal. IMPRESSION: Sternotomy. Pacemaker. Atrial appendage closure device. No convincing acute process. Dictated by Ricardo Mcgovern MD @ 10/21/2020 4:23:[address] Ricardo Mcgovern @ Oct 21 2020 4:23PM
== END 2020-10-21 16:42 | disposition home or self-care (01) ==
LOC: MW.ED 15:28
DX: S20.212A Contusion of left front wall of thorax, initial encounter (principal); S60.511A Abrasion of right hand, initial encounter; I25.10 Atherosclerotic heart disease of native coronary artery without angina pectoris; E78.00 Pure hypercholesterolemia, unspecified; I10 Essential (primary) hypertension; E11.9 Type 2 diabetes mellitus without complications; E66.9 Obesity, unspecified; Z79.4 Long term (current) use of insulin; Z79.02 Long term (current) use of antithrombotics/antiplatelets; Z79.899 Other long term (current) drug therapy; Z79.01 Long term (current) use of anticoagulants; W22.8XXA Striking against or struck by other objects, initial encounter; Y92.009 Unspecified place in unspecified non-institutional (private) residence as the place of occurrence of the external cause
CPT/HCPCS: 71046; 71046-26; 99282; 99283-25